=== PATIENT | female | born 1950 | race Caucasian/White ===

== ENCOUNTER → 2016-10-17 | Outpatient (REF) | payer OTHER, MEDICARE ==
[~2016-10-17] MED LIST: *PREMTA; /FENT50PA; /FENT50PA TD; /OXYC15TA; ALPR0.25 OR; AMBI10TA; AMBI10TA OR; AMIT50TA2; AMIT50TA2 OR; AMIT50TA4 PO; BACL10TA2; ESTR625TA OR; IMIT6INJ; LIDO5DIS; MAGN500T2; MORP30TA2 PO; OXYC10TA12 OR; OXYC10TA97 PO; PERC5TAB8; SOMA350T; SOMA350T OR; SUMATRIPTAN INJ; TOPA100T PO; VITA100T; XANA0.25
== END ==
LOC: M SFHCPLAZ 09:17
PROVIDERS: ATTEND Physician Assistant Medical
DX: R73.01 Impaired fasting glucose (principal); E55.9 Vitamin D deficiency, unspecified

== ENCOUNTER → 2016-10-24 | Outpatient (REF) | payer OTHER, MEDICARE | LOC: M SFHCADAM 13:17 | PROVIDERS: ATTEND Physician Assistant Medical | DX: E55.9 Vitamin D deficiency, unspecified (principal) ==

== ENCOUNTER → 2017-01-12 | Outpatient (CLI) | payer OTHER ==
[2017-01-12 10:17] LABS: BLOOD UREA NITROGEN 18 MG/DL (7-18); GLOMERULAR FILTRATION RATE > 60.0 (>45)
== END ==
LOC: M LAB 08:52
PROVIDERS: ATTEND Physician Assistant
DX: M96.1 Postlaminectomy syndrome, not elsewhere classified (principal)

== ENCOUNTER → 2017-01-17 | Outpatient (CLI) | payer OTHER ==
--- NOTE | 2017-01-17 13:16 | REP ---
MRI LUMBAR SPINE WITHOUT AND WITH CONTRAST: HISTORY: Back pain. CONTRAST: ProHance 13 mL. COMPARISON: 01/13/2010. Decreased signal intensity on T2-weighted images is present in the lumbar intervertebral discs. The discs are decreased in height. These findings are consistent with disc degeneration. A diffuse disc bulge is present at the L1-2 level. There is minimal compression of the thecal sac. There is hypertrophy of the posterior articulating facets. The L1 nerves exit the neural foramina without compression. A diffuse disc bulge is present at the L2-3 level. There is minimal compression of the thecal sac. There is hypertrophy of the posterior articulating facets. The L2 nerves exit the neural foramina without compression. The patient is status post L3-S1 anterior and L3 to sacroiliac posterior spinal fusion and L3-5 laminectomy. Bone graft material is present anteriorly and metal rods and pedicle screws posteriorly. There is no disc bulge or herniation at the L3-4 level. The L3 nerves exit the neural foramina without compression. A fluid collection is present at the laminectomy site. This measures 3.6 cm in transverse by 2.7 cm in AP by 5.2 cm in cephalocaudal dimensions. The fluid collection extends from the L3 level inferior to the L5-S1 level. The fluid collection is slightly increased in size compared to the previous study. A diffuse disc bulge is present at the L4-5 level. This abuts the thecal sac. There is hypertrophy of the posterior articulating facets. The L4 nerves exit the neural foramina without compression. A fluid collection is present at the laminectomy site. There is no disc bulge or herniation at the L5-S1 level. There is hypertrophy of the posterior articulating facets. There are 9 mm of grade 2 spondylolisthesis of L5 on S1. There is compression of the L5 nerves in the neural foramina. A fluid collection is present at the laminectomy site. The conus medullaris is normal in appearance terminating at the level of the T12-L1 intervertebral disc. There is no abnormal enhancement. Normal signal intensity is present in the lumbar vertebral bodies. IMPRESSION: 1. Diffuse disc bulges at the L1-2 and L2-3 levels with minimal thecal sac compression. 2. The patient is status post L3-S1 anterior and L3 to sacroiliac posterior spinal fusion and L3-5 laminectomy. 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 This is slightly increased in size compared to the previous study. Signed by Kenny Godwin MD 01/17/2017 01:23 P
== END ==
LOC: M RAD 09:17
PROVIDERS: ATTEND Physician Assistant
DX: M51.06 Intervertebral disc disorders with myelopathy, lumbar region (principal); Z98.1 Arthrodesis status; M96.842 Postprocedural seroma of a musculoskeletal structure following a musculoskeletal system procedure
CPT/HCPCS: 72158; A9576

== ENCOUNTER → 2017-05-15 | Outpatient (REF) | payer OTHER, MEDICARE ==
[2017-05-15 12:56] LABS: BASO % 0.7 % (0.0-1.0); HEMATOCRIT 35.5 % (36.0-47.0); HEMOGLOBIN 11.4 g/dl (12.0-16.0); IMMATURE GRANULOCYTE % 0.2 % (0-0); LYMPH # 1.4 10^3/uL (1.5-4.5); LYMPH % 31.7 % (24.0-44.0); MEAN CORPUSCULAR HEMOGLOBIN 27.9 pg (27.0-33.0); MEAN CORPUSCULAR HGB CONC 32.1 g/dl (32.0-36.5); MEAN CORPUSCULAR VOLUME 86.8 fl (80.0-96.0); MONO # 0.3 10^3/uL (0.0-0.8); MONO % 7.4 % (0.0-5.0); NEUTROPHILS # 2.6 10^3/uL (1.8-7.7); PLATELET COUNT, AUTOMATED 248 10^3/uL (150-450); RED BLOOD COUNT 4.09 10^6/uL (4.00-5.40); RED CELL DISTRIBUTION WIDTH 13.8 % (11.5-14.5); WHITE BLOOD COUNT 4.3 10^3/uL (4.0-10.0)
[2017-05-15 13:00] LABS: FOLATE 13.9 NG/ML; TOTAL 25(OH) VITAMIN D 31.6 NG/ML (30.0-100.0); VITAMIN B12 LEVEL 336 PG/ML
[2017-05-15 13:15] LABS: ESTIMATED AVERAGE GLUCOSE 126 MG/DL (60-110)
[2017-05-15 13:24] LABS: ALBUMIN/GLOBULIN RATIO 1.25 (1.00-1.93); ALKALINE PHOSPHATASE 93 U/L (45-117); ALT/SGPT 16 U/L (12-78); ANION GAP 6 MEQ/L (8-16); AST/SGOT 17 U/L (7-37); BILIRUBIN,TOTAL 0.3 MG/DL (0.2-1.0); BLOOD UREA NITROGEN 14 MG/DL (7-18); CALCIUM LEVEL 8.7 MG/DL (8.8-10.2); CARBON DIOXIDE LEVEL 32 MEQ/L (21-32); CHLORIDE LEVEL 103 MEQ/L (98-107); CHOLESTEROL LEVEL 194 MG/DL (<200); CHOLESTEROL RISK RATIO 3.344 (<5); CREATININE FOR GFR 0.61 MG/DL (0.55-1.02); FREE T4 0.94 NG/DL (0.76-1.46); GLOMERULAR FILTRATION RATE > 60.0 (>45); GLUCOSE, FASTING 108 MG/DL (80-110); HDL CHOLESTEROL 58 MG/DL (>40); LDL CHOLESTEROL 110.4 MG/DL (<100); MAGNESIUM LEVEL 1.9 MG/DL (1.8-2.4); NON-HDL-C 136 MG/DL; POTASSIUM SERUM 4.7 MEQ/L (3.5-5.1); SODIUM LEVEL 141 MEQ/L (136-145); TOTAL PROTEIN 7.2 GM/DL (6.4-8.2); TRIGLYCERIDES LEVEL 128 MG/DL (<150)
== END ==
LOC: M SFHCADAM 08:12
DX: E53.8 Deficiency of other specified B group vitamins (principal); F34.1 Dysthymic disorder; R73.01 Impaired fasting glucose; E55.9 Vitamin D deficiency, unspecified
CPT/HCPCS: 82746

== ENCOUNTER → 2017-05-15 | Outpatient (CLI) | payer OTHER, MEDICARE | LOC: M ADAMS 08:20 | DX: M19.032 Primary osteoarthritis, left wrist (principal); M85.48 Solitary bone cyst, other site; E53.8 Deficiency of other specified B group vitamins; F34.1 Dysthymic disorder; R73.01 Impaired fasting glucose; E55.9 Vitamin D deficiency, unspecified; Z79.899 Other long term (current) drug therapy | CPT/HCPCS: 73110; 82746 ==

== ENCOUNTER → 2018-01-28 | Outpatient (REF) | payer OTHER, MEDICARE ==
[2018-01-28 13:25] LABS: BASO % 0.5 % (0.0-1.0); HEMATOCRIT 37.6 % (36.0-47.0); IMMATURE GRANULOCYTE % 0.2 % (0-3.0); LYMPH # 1.1 10^3/uL (1.5-4.5); LYMPH % 24.2 % (24.0-44.0); MEAN CORPUSCULAR HEMOGLOBIN 28.9 pg (27.0-33.0); MEAN CORPUSCULAR HGB CONC 31.9 g/dl (32.0-36.5); MEAN CORPUSCULAR VOLUME 90.6 fl (80.0-96.0); MONO # 0.4 10^3/uL (0.0-0.8); MONO % 8.8 % (0.0-5.0); NEUTROPHILS # 2.9 10^3/uL (1.8-7.7); NEUTROPHILS % 66.3 % (36.0-66.0); PLATELET COUNT, AUTOMATED 196 10^3/uL (150-450); RED BLOOD COUNT 4.15 10^6/uL (4.00-5.40); RED CELL DISTRIBUTION WIDTH 13.3 % (11.5-14.5); WHITE BLOOD COUNT 4.4 10^3/uL (4.0-10.0)
[2018-01-28 14:52] LABS: ALBUMIN 3.7 GM/DL (3.2-5.2); ALBUMIN/GLOBULIN RATIO 1.09 (1.00-1.93); ALKALINE PHOSPHATASE 98 U/L (45-117); ALT/SGPT 17 U/L (12-78); ANION GAP 10 MEQ/L (8-16); AST/SGOT 21 U/L (7-37); BILIRUBIN,TOTAL 0.3 MG/DL (0.2-1.0); BLOOD UREA NITROGEN 15 MG/DL (7-18); CALCIUM LEVEL 9.1 MG/DL (8.8-10.2); CARBON DIOXIDE LEVEL 29 MEQ/L (21-32); CHLORIDE LEVEL 102 MEQ/L (98-107); CHOLESTEROL LEVEL 162 MG/DL (<200); CREATININE FOR GFR 0.62 MG/DL (0.55-1.30); FERRITIN 20 NG/ML (8-252); FOLATE 6.3 NG/ML; FREE T4 0.75 NG/DL (0.76-1.46); GLOMERULAR FILTRATION RATE > 60.0 (>45); GLUCOSE, FASTING 96 MG/DL (70-100); HDL CHOLESTEROL 54 MG/DL (>40); IRON (FE) 55 UG/DL (50-170); LDL CHOLESTEROL 87 MG/DL (<100); NON-HDL-C 108 MG/DL; PERCENT SATURATION 16.7 % (13.2-45.0); POTASSIUM SERUM 4.1 MEQ/L (3.5-5.1); SODIUM LEVEL 141 MEQ/L (136-145); TOTAL IRON BINDING CAPACITY 330 UG/DL (250-450); TOTAL PROTEIN 7.1 GM/DL (6.4-8.2); TRIGLYCERIDES LEVEL 107 MG/DL (<150)
[2018-01-28 15:48] LABS: ESTIMATED AVERAGE GLUCOSE 111 MG/DL (60-110); HEMOGLOBIN A1c 5.5 %
== END ==
LOC: M SFHCADAM 08:06
DX: E53.8 Deficiency of other specified B group vitamins (principal); G47.00 Insomnia, unspecified; R73.01 Impaired fasting glucose; E55.9 Vitamin D deficiency, unspecified; E78.00 Pure hypercholesterolemia, unspecified; D50.9 Iron deficiency anemia, unspecified
CPT/HCPCS: 82746

== ENCOUNTER → 2018-02-14 | Outpatient (CLI) | payer OTHER | LOC: M RAD 13:41 | DX: R92.8 Other abnormal and inconclusive findings on diagnostic imaging of breast (principal); Z78.0 Asymptomatic menopausal state; M81.0 Age-related osteoporosis without current pathological fracture | CPT/HCPCS: 77065 ==

== ENCOUNTER → 2018-02-14 | Outpatient (CLI) | payer OTHER, MEDICARE | LOC: M WHC 13:00 | DX: Z78.0 Asymptomatic menopausal state (principal); M81.0 Age-related osteoporosis without current pathological fracture ==

== ENCOUNTER → 2018-02-18 | Outpatient (CLI) | payer OTHER | LOC: M CARPUL 10:18 | DX: I08.0 Rheumatic disorders of both mitral and aortic valves (principal) | CPT/HCPCS: 93306 ==

== ENCOUNTER 2018-06-18 08:21 | Day surgery (SDC) | payer MEDICARE ==
[~2018-06-18] VITALS: Ht 154.9 cm; Wt 54.8 kg
[~2018-06-18 08:21] MED LIST changes: +AMBI5TAB PO; +AMIT100TA PO; +CYCL10TA PO; +IMIT6KIT SC; +MORP30TASA PO; +NS 1,000 ML IV ONE; +SERT-155 PO; +VITA100067 PO; +VITA500T3 PO
[2018-06-18] MEDS ORDERED: PROPOFOL 500 MG/50 ML VIAL As Ordered ONE (09:09)
[2018-06-18] MEDS ORDERED: LIDOCAINE 2% INJ 100 MG/5 ML SDV (FOR ANES.) As Ordered ONE (09:43)
--- NOTE | 2018-06-18 11:00 | ROOR ---
Patient Name: Diane Azevedo Procedure Date: 06/18/2018 10:22 AM Date of : 1950 Age: 67 Room: [facility] Gender: Female Note Status: Finalized Procedure: Upper GI endoscopy Indications: Weight loss Providers: Rogelio Shi MD Referring MD: JODI Lopez Requesting Provider: Medicines: Monitored Anesthesia Care Complications: No immediate complications. Procedure: Pre-Anesthesia Assessment: - Prior to the procedure, a History and Physical was performed, and patient medications and allergies were reviewed. The patient is competent. The risks and benefits of the procedure and the sedation options and risks were discussed with the patient. All questions were answered and informed consent was obtained. Patient identification and proposed procedure were verified by the physician, the nurse and the anesthesiologist in the procedure room. Mental Status Examination: alert and oriented. Airway Examination: normal oropharyngeal airway and neck mobility. Respiratory Examination: clear to auscultation. CV Examination: normal. Prophylactic Antibiotics: The patient does not require prophylactic antibiotics. Prior Anticoagulants: The patient has taken no previous anticoagulant or antiplatelet agents. ASA Grade Assessment: III - A patient with severe systemic disease. After reviewing the risks and benefits, the patient was deemed in satisfactory condition to undergo the procedure. The anesthesia plan was to use monitored anesthesia care (MAC). Immediately prior to administration of medications, the patient was re-assessed for adequacy to receive sedatives. The heart rate, respiratory rate, oxygen saturations, blood pressure, adequacy of pulmonary ventilation, and response to care were monitored throughout the procedure. The physical status of the patient was re-assessed after the procedure. The Endoscope was introduced through the mouth, and advanced to the second part of duodenum. The upper GI endoscopy was accomplished without difficulty. The patient tolerated the procedure well. Findings: LA Grade A (one or more mucosal breaks less than 5 mm, not extending between tops of 2 mucosal folds) esophagitis with no bleeding was found in the distal esophagus. Biopsies were taken with a cold forceps for histology. Verification of patient identification for the specimen was done by the physician and nurse using the patient's name, date and medical record number. Estimated blood loss was minimal. Diffuse moderate inflammation characterized by erosions, erythema and granularity was found in the gastric antrum. Biopsies were taken with a cold forceps for Helicobacter pylori testing. The duodenal bulb and second portion of the duodenum were normal. Impression: - LA Grade A reflux esophagitis. Biopsied. - Gastritis. Biopsied. - Normal duodenal bulb and second portion of the duodenum. Recommendation: - Patient has a contact number available for emergencies. The signs and symptoms of potential delayed complications were discussed with the patient. Return to normal activities tomorrow. Written discharge instructions were provided to the patient. - Resume previous diet. - Continue present medications. - Await pathology results. - Follow an antireflux regimen. - Based on the biopsy results you will receive a phone call from GI clinic in 2-3 weeks to review the pathology results AND/OR your results will be faxed to your Primary care physician. - Return to primary care physician. Rogelio Shi MD Rogelio Shi MD 06/18/2018 10:59:31 AM This report has been signed electronically. Number of Addenda: 0 Note Initiated On: 06/18/2018 10:22 AM Estimated Blood Loss: Estimated blood loss was minimal.
--- NOTE | 2018-06-18 11:03 | ROOR ---
Patient Name: Diane Azevedo Procedure Date: 06/18/2018 10:23 AM Date of : 1950 Age: 67 Room: [facility] Gender: Female Note Status: Finalized Procedure: Colonoscopy Indications: Weight loss Providers: Rogelio Shi MD Referring MD: JODI Lopez Requesting Provider: Medicines: Monitored Anesthesia Care Complications: No immediate complications. Procedure: Pre-Anesthesia Assessment: - Prior to the procedure, a History and Physical was performed, and patient medications and allergies were reviewed. The patient is competent. The risks and benefits of the procedure and the sedation options and risks were discussed with the patient. All questions were answered and informed consent was obtained. Patient identification and proposed procedure were verified by the physician, the nurse and the anesthesiologist in the procedure room. Mental Status Examination: alert and oriented. Airway Examination: normal oropharyngeal airway and neck mobility. Respiratory Examination: clear to auscultation. CV Examination: normal. Prophylactic Antibiotics: The patient does not require prophylactic antibiotics. Prior Anticoagulants: The patient has taken no previous anticoagulant or antiplatelet agents. ASA Grade Assessment: III - A patient with severe systemic disease. After reviewing the risks and benefits, the patient was deemed in satisfactory condition to undergo the procedure. The anesthesia plan was to use monitored anesthesia care (MAC). Immediately prior to administration of medications, the patient was re-assessed for adequacy to receive sedatives. The heart rate, respiratory rate, oxygen saturations, blood pressure, adequacy of pulmonary ventilation, and response to care were monitored throughout the procedure. The physical status of the patient was re-assessed after the procedure. The Colonoscope was introduced through the anus with the intention of advancing to the cecum. The scope was advanced to the rectum before the procedure was aborted. Medications were given. The colonoscopy was performed without difficulty. The patient tolerated the procedure well. The quality of the bowel preparation was poor and unsatisfactory. No anatomical landmarks were photographed. Findings: The perianal and digital rectal examinations were normal. Copious quantities of stool was found in the rectum and in the recto-sigmoid colon, precluding visualization. Lavage of the area was performed using a large amount of sterile water, resulting in incomplete clearance with continued poor visualization. Impression: - Preparation of the colon was poor. - Preparation of the colon was unsatisfactory. - Stool in the rectum and in the recto-sigmoid colon. - No specimens collected. Recommendation: - Patient has a contact number available for emergencies. The signs and symptoms of potential delayed complications were discussed with the patient. Return to normal activities tomorrow. Written discharge instructions were provided to the patient. - Resume previous diet. - Continue present medications. - Repeat colonoscopy within 3 months because the bowel preparation was poor. - Please call GI clinic @ # [phone] to make follow up appointment in 4- 6 weeks - Return to primary care physician. Rogelio Shi MD Rogelio Shi MD 06/18/2018 11:03:09 AM This report has been signed electronically. Number of Addenda: 0 Note Initiated On: 06/18/2018 10:23 AM Estimated Blood Loss: Estimated blood loss: none.
[2018-06-18 11:15] VITALS: BP 150/69
== END 2018-06-18 11:32 | disposition home or self-care (01) ==
LOC: M OPP 08:21
PROVIDERS: ATTEND Internal Medicine Gastroenterology
DX: R63.4 Abnormal weight loss (principal); R19.5 Other fecal abnormalities; K29.70 Gastritis, unspecified, without bleeding; Z79.891 Long term (current) use of opiate analgesic; Z79.899 Other long term (current) drug therapy; Z88.5 Allergy status to narcotic agent; Z88.1 Allergy status to other antibiotic agents

== ENCOUNTER → 2018-06-19 | Outpatient (CLI) | payer MEDICARE ==
[~2018-06-19] MED LIST changes: -NS 1,000 ML IV ONE
[2018-06-19 09:57] LABS: BLOOD UREA NITROGEN 16 MG/DL (7-18); CREATININE FOR GFR 0.74 MG/DL (0.55-1.30); GLOMERULAR FILTRATION RATE > 60.0 (>45)
== END ==
LOC: M LAB 09:01
PROVIDERS: ATTEND Physician Assistant Medical
DX: R63.4 Abnormal weight loss (principal)

== ENCOUNTER → 2018-06-25 | Outpatient (CLI) | payer MEDICARE ==
[~2018-06-25] MED LIST changes: +GLUCAGON FOR INJ 1 MG VIAL (J1610) As Ordered ONE; +ISOVUE-370 76% 100ML VIAL (Q9967) As Ordered ONE; +VoLumen 0.1% SUSPENSION 450ML BOTTLE As Ordered ONE
--- NOTE | 2018-06-25 14:37 | REP ---
CT ENTEROGRAPHY ABDOMEN AND PELVIS WITH IV CONTRAST AND ORAL CONTRAST: TECHNIQUE: Axial contrast enhanced images from the lung bases to the pubic symphysis using 100 mL Isovue 370 intravenous contrast material with multiplanar reformations. Oral contrast was administered, VoLumen a per hospital protocol. Visualized lung bases demonstrate minor scarring. The liver demonstrates no mass. Patient has had a prior cholecystectomy. There is mild prominence of the common bile duct but no evidence of significant biliary dilatation or choledocholithiasis. Spleen, adrenals, pancreas and kidneys are unremarkable. There is mild atherosclerotic calcification of the abdominal aorta without aneurysm. There is no adenopathy. There is no free or free fluid. I see no bowel wall thickening. There is mild diffuse distension of stomach and small bowel with ingested oral contrast. There is moderate diffuse fecal retention. Patient has had a hysterectomy. No pelvic mass is seen. The urinary bladder is mildly distended and appears unremarkable. There is evidence of prior lower lumbar spine fusion posteriorly with laminectomy. There is sclerosis at the sacroiliac joints. IMPRESSION: Moderate fecal retention. No evidence of bowel wall abnormality. No bowel inflammation identified. Patient is status-post cholecystectomy and hysterectomy. Patient is status-post lumbar spine fusion and laminectomy. Electronically Signed by Daryl Turner MD 06/25/2018 05:30 P
== END ==
LOC: M RAD 09:23
PROVIDERS: ATTEND Physician Assistant Medical
DX: K56.41 Fecal impaction (principal); Z90.710 Acquired absence of both cervix and uterus; Z90.49 Acquired absence of other specified parts of digestive tract; M53.3 Sacrococcygeal disorders, not elsewhere classified; R63.4 Abnormal weight loss; M43.26 Fusion of spine, lumbar region
CPT/HCPCS: 74177; J1610; Q9967

== ENCOUNTER 2018-08-09 08:37 | Day surgery (SDC) | payer MEDICARE ==
[~2018-08-09] VITALS: Ht 152.4 cm; Wt 51.3 kg
[~2018-08-09 08:37] MED LIST changes: -/FENT50PA; -/FENT50PA TD; -/OXYC15TA; +FENT1DIS15; +FENT1DIS15 TD; -GLUCAGON FOR INJ 1 MG VIAL (J1610) As Ordered ONE; -ISOVUE-370 76% 100ML VIAL (Q9967) As Ordered ONE; +LIDOCAINE 2% INJ 100 MG/5 ML SDV (FOR ANES.) As Ordered ONE; +MIRA3350 PO; +NS 1,000 ML IV ONE; +OMEP40CA2 PO; +OXYC1TAB32; +PROPOFOL 200 MG/20 ML VIAL As Ordered ONE; -VoLumen 0.1% SUSPENSION 450ML BOTTLE As Ordered ONE
[2018-08-09] MEDS ORDERED: fentaNYL 100 MCG/2 ML INJECTION (J3010) As Ordered ONE (10:17)
[2018-08-09] MEDS ORDERED: PROPOFOL 200 MG/20 ML VIAL As Ordered ONE (10:33)
--- NOTE | 2018-08-09 10:56 | ROOR ---
Patient Name: Diane Azevedo Procedure Date: 08/09/2018 10:12 AM Date of : 1950 Age: 68 Room: [facility] Gender: Female Note Status: Finalized Procedure: Colonoscopy Indications: Constipation, Weight loss Providers: Rogelio Shi MD Referring MD: JODI Lopez Requesting Provider: Medicines: Monitored Anesthesia Care Complications: No immediate complications. Procedure: Pre-Anesthesia Assessment: - Prior to the procedure, a History and Physical was performed, and patient medications and allergies were reviewed. The patient is competent. The risks and benefits of the procedure and the sedation options and risks were discussed with the patient. All questions were answered and informed consent was obtained. Patient identification and proposed procedure were verified by the physician, the nurse and the anesthesiologist in the procedure room. Mental Status Examination: alert and oriented. Airway Examination: normal oropharyngeal airway and neck mobility. CV Examination: normal. Prophylactic Antibiotics: The patient does not require prophylactic antibiotics. Prior Anticoagulants: The patient has taken no previous anticoagulant or antiplatelet agents. ASA Grade Assessment: III - A patient with severe systemic disease. After reviewing the risks and benefits, the patient was deemed in satisfactory condition to undergo the procedure. The anesthesia plan was to use monitored anesthesia care (MAC). Immediately prior to administration of medications, the patient was re-assessed for adequacy to receive sedatives. The heart rate, respiratory rate, oxygen saturations, blood pressure, adequacy of pulmonary ventilation, and response to care were monitored throughout the procedure. The physical status of the patient was re-assessed after the procedure. The Colonoscope was introduced through the anus and advanced to the terminal ileum, with identification of the appendiceal orifice and IC valve. The colonoscopy was performed without difficulty. The patient tolerated the procedure well. The quality of the bowel preparation was good. The terminal ileum, ileocecal valve, appendiceal orifice, and rectum were photographed. Scope insertion time was 4 minutes. Scope withdrawal time was 10 minutes. The total duration of the procedure was 14 minutes. Findings: The perianal and digital rectal examinations were normal. The terminal ileum appeared normal. A 6 mm polyp was found in the transverse colon. The polyp was sessile. The polyp was removed with a cold snare. Resection and retrieval were complete. Verification of patient identification for the specimen was done by the physician and nurse using the patient's name, date and medical record number. Estimated blood loss was minimal. Non-bleeding external and internal hemorrhoids were found during retroflexion. The hemorrhoids were small. Impression: - The examined portion of the ileum was normal. - One 6 mm polyp in the transverse colon, removed with a cold snare. Resected and retrieved. - Non-bleeding external and internal hemorrhoids. Recommendation: - Patient has a contact number available for emergencies. The signs and symptoms of potential delayed complications were discussed with the patient. Return to normal activities tomorrow. Written discharge instructions were provided to the patient. - High fiber diet. - Continue present medications. - Await pathology results. - Repeat colonoscopy in 5-10 years for surveillance based on pathology results. - Further work up for weight loss , including Capsule enteroscopy, and fecal elastase and fecal fat.( if ongoing weight loss). - Return to GI clinic in [facility] (address [address], [address], [place], [facility] [place]) in 4 -- 6 weeks. Please call GI clinic @ [phone] for apppointment date and time. - Return to primary care physician. Rgoelio Shi MD Rogelio Shi MD 08/09/2018 10:56:33 AM Electronically signed by Rogelio Shi MD Number of Addenda: 0 Note Initiated On: 08/09/2018 10:12 AM Estimated Blood Loss: Estimated blood loss: none.
[2018-08-09 11:15] VITALS: BP 133/61
== END 2018-08-09 11:21 | disposition home or self-care (01) ==
LOC: M OPP 08:37
PROVIDERS: ATTEND Internal Medicine Gastroenterology
DX: K64.8 Other hemorrhoids (principal); D12.3 Benign neoplasm of transverse colon; K59.00 Constipation, unspecified; R63.4 Abnormal weight loss; Z88.1 Allergy status to other antibiotic agents; Z88.5 Allergy status to narcotic agent; Z91.040 Latex allergy status; Z79.899 Other long term (current) drug therapy
CPT/HCPCS: 45385; 88305; J3010

== ENCOUNTER → 2018-09-12 | Outpatient (REF) | payer MEDICARE ==
[~2018-09-12] MED LIST changes: -LIDOCAINE 2% INJ 100 MG/5 ML SDV (FOR ANES.) As Ordered ONE; -NS 1,000 ML IV ONE; -PROPOFOL 200 MG/20 ML VIAL As Ordered ONE
[2018-09-12 19:02] LABS: BASO % 0.4 % (0.0-1.0); HEMATOCRIT 38.3 % (36.0-47.0); HEMOGLOBIN 12.3 g/dl (12.0-15.5); LYMPH # 1.3 10^3/uL (1.5-4.5); MEAN CORPUSCULAR HGB CONC 32.1 g/dl (32.0-36.5); MEAN CORPUSCULAR VOLUME 87.2 fl (80.0-96.0); MONO # 0.3 10^3/uL (0.0-0.8); MONO % 6.7 % (0.0-5.0); NEUTROPHILS # 3.2 10^3/uL (1.8-7.7); NEUTROPHILS % 65.5 % (36.0-66.0); PLATELET COUNT, AUTOMATED 231 10^3/uL (150-450); RED BLOOD COUNT 4.39 10^6/uL (4.00-5.40); WHITE BLOOD COUNT 4.8 10^3/uL (4.0-10.0)
[2018-09-12 19:10] LABS: ALBUMIN 4.1 GM/DL (3.2-5.2); ALT/SGPT 21 U/L (12-78); BILIRUBIN,TOTAL 0.3 MG/DL (0.2-1.0); BLOOD UREA NITROGEN 21 MG/DL (7-18); CALCIUM LEVEL 9.5 MG/DL (8.8-10.2); CARBON DIOXIDE LEVEL 30 MEQ/L (21-32); CHLORIDE LEVEL 106 MEQ/L (98-107); CREATININE FOR GFR 0.76 MG/DL (0.55-1.30); GLOMERULAR FILTRATION RATE > 60.0 (>45); GLUCOSE, FASTING 97 MG/DL (70-100); POTASSIUM SERUM 4.2 MEQ/L (3.5-5.1); SODIUM LEVEL 141 MEQ/L (136-145); TOTAL PROTEIN 7.8 GM/DL (6.4-8.2)
[2018-09-12 19:12] LABS: TOTAL 25(OH) VITAMIN D 24.1 NG/ML (30.0-100.0); VITAMIN B12 LEVEL 1130 PG/ML (247-911)
[2018-09-12 19:36] LABS: HEMOGLOBIN A1c 6.7 %
== END ==
LOC: M SFHCADAM 15:25
PROVIDERS: ATTEND Physician Assistant Medical
DX: M51.36 Other intervertebral disc degeneration, lumbar region (principal); F34.1 Dysthymic disorder; R73.01 Impaired fasting glucose; E55.9 Vitamin D deficiency, unspecified; I50.42 Chronic combined systolic (congestive) and diastolic (congestive) heart failure; D51.3 Other dietary vitamin B12 deficiency anemia

== ENCOUNTER 2018-09-25 15:32 | Emergency (ER) | payer MEDICARE ==
[~2018-09-25] VITALS: Ht 165.1 cm; Wt 54.1 kg
[2018-09-25] MEDS ORDERED: diphenhydrAMINE INJ 50MG/ML VIAL (J1200) IV STA (16:35)
[2018-09-25] MEDS ORDERED: KETOROLAC 30 MG/ML VIAL (J1885) IV ONE (16:45)
[2018-09-25] MEDS ORDERED: NS 500 ML IV ONE (16:45)
[2018-09-25] MEDS ORDERED: METOCLOPRAMIDE INJ 10MG/2ML VIAL (J2765) IV ONE (16:45)
--- NOTE | 2018-09-25 17:08 | REP ---
CT Head without contrast HISTORY: Fall COMPARISON: 12/13/2009 Areas of decreased attenuation are present in the periventricular white matter. This represents small-vessel ischemic disease. There is no intraparenchymal hemorrhage, acute infarct, mass or midline shift. The ventricular system and cortical sulci are dilated consistent with minimal volume loss. There is no extra cerebral collection. There is no fracture. The visualized sinuses are clear. IMPRESSION: 1. Small vessel ischemic disease. 2. Minimal volume loss. Electronically Signed by Kenny Godwin MD 09/25/2018 05:00 P
--- NOTE | 2018-09-25 17:31 | REP ---
CT LUMBAR SPINE WITHOUT CONTRAST: HISTORY: Fall. A diffuse disc bulge is present at the L1-2 level. There is minimal compression of the thecal sac. The L1 nerves exit the neural foramina without compression. A diffuse disc bulge is present at the L2-3 level. There is minimal compression of the thecal sac. There is hypertrophy of the posterior articulating facets. The L2 nerves exit the neural foramina without compression. The patient is status post L3 to S1 anterior and L3 to sacroiliac posterior final fusion and L3 to 5 laminectomy. Metal hardware and bone graft material are present. There is no definite disc bulge or herniation at the L3-4 level. Posterior osteophytes are present. There is hypertrophy of the posterior articulating facets. The L3 nerves exit the neural foramina without compression. Posterior osteophytes are present at the L4-5 level. There is hypertrophy of the posterior articulating facets. The L4 nerves exit the neural foramina without compression. There is no definite disc bulge or herniation at the L5-S1 level. There are 10 mm of grade 2 spondylolisthesis of L5 on S1. There is hypertrophy of the posterior articulating facets. There is compression of the L5 nerves in the neural foramina. The L3-4 through L5-S1 intervertebral discs are decreased in height consistent with disc degeneration. There is no fracture. IMPRESSION: 1. Diffuse disc bulges at the L1-2 and L2-3 levels with minimal thecal sac compression. 2. The patient is status post L3 to S1 anterior and L3 to sacroiliac posterior spinal fusion and L3 to 5 laminectomy. There is no acute fracture. Electronically Signed by Kenny Godwin MD 09/26/2018 08:29 A
[2018-09-25] MEDS ORDERED: PERC5TAB12 PO (17:59)
[2018-09-25] MEDS ORDERED: PERCOCET 5MG/325MG TAB PO ONE (18:00)
[2018-09-25 19:14] VITALS: BP 142/84
== END 2018-09-25 19:23 | disposition home or self-care (01) ==
LOC: M ED 15:32
DX: S30.0XXA Contusion of lower back and pelvis, initial encounter (principal); S00.93XA Contusion of unspecified part of head, initial encounter; W19.XXXA Unspecified fall, initial encounter; Y92.099 Unspecified place in other non-institutional residence as the place of occurrence of the external cause; Y93.9 Activity, unspecified; Y99.9 Unspecified external cause status; M51.26 Other intervertebral disc displacement, lumbar region; M43.26 Fusion of spine, lumbar region; Z79.899 Other long term (current) drug therapy; Z88.1 Allergy status to other antibiotic agents; Z88.5 Allergy status to narcotic agent; Z91.040 Latex allergy status
CPT/HCPCS: 70450; 72131; 96361; 96374; 96375; 99284; J1200; J1885; J2765

== ENCOUNTER → 2018-09-30 | Outpatient (CLI) | payer MEDICARE ==
[~2018-09-30] MED LIST changes: +PERC5TAB12 PO
--- NOTE | 2018-10-12 01:49 | ECWPNPC ---
PATIENT NAME: ERWIN ROJO : 1950 GENDER: FEMALE VISIT DATE: 09/30/2018 DISCHARGE DATE: 09/30/18 1457 VISIT LOCKED DATE TIME: PHYSICIAN: DELMA QUINONEZ MD RESOURCE: DELMA QUINONEZ MD REASON FOR APPOINTMENT 1. DDD HISTORY OF PRESENT ILLNESS PAIN SCREENING: PATIENT HAS A COMPLAINT OF ACUTE OR CHRONIC PAIN :YES 68 YEAR OLD FEMALE PATIENT WITH A HISTORY OF CHRONIC LOW BACK PAIN. THE PATIENT DESCRIBES THE PAIN ACHING, STABBING, SHOOTING, AND CONTINUOUS WITH A PAIN SCORE OF 7-10/10 DEPENDING ON PHYSICAL ACTIVITY. THE PATIENT SAYS THE PAIN STARTS IN HER LOW BACK AND RADIATES DOWN HER RIGHT LEG. THE PATIENT SAYS THAT SHE HAS HAD THIS PAIN FOR MANY YEARS. THE PATIENT REPORTS HAVING 2 BACK SURGERIES IN 2009 AND ANOTHER IN 2010, BUT SAYS THEY DID NOT HELP HER. THE PATIENT HAS TINGLING DOWN HER RIGHT LEG THAT CAUSES HER TO HAVE DIFFICULTIES WALKING SO SHE NEEDS TO USE A CANE. THE PATIENT SAYS THAT SHE HAS TRIED MULTIPLE MEDICATIONS SUCH TIZANIDINE, CYCLOBENZAPRINE, BACLOFEN, AND IBUPROFEN BUT NONE OF THEM HAVE HELPED. THE PATIENT REPORTS EXPERIENCING ADVERSE SIDE EFFECTS WHILE USING BACLOFEN. PATIENT DENIES UNEXPLAINABLE WEIGHT LOSS, FEVER, CHILLS, NEW CHANGES ON HER URINARY OR BOWEL CONTROL. FALL RISK SCREENING: SCREENING :TWO OR MORE FALLS WITHOUT INJURY IN THE PAST YEAR NO BROKEN BONES FROM FALLS PER PT, BUT SHE SAYS SHE GETS A LOT OF BRUISES CURRENT MEDICATIONS TAKING MAY HAVE - - DIRECTED - WEARS HER SEATBELT BELOW HER SHOULDER TO PREVENT EXACERBATION OF UPPER BACK PAIN WHILE DRIVING TAKING VITAMIN D 2000 UNIT TABLET 1 TABLET ORALLY ONCE A DAY TAKING VITAMIN B12 500 MG TABLET 1 TABLET ORALLY ONCE A DAY TAKING IMITREX STATDOSE SYSTEM 6 MG/0.5ML SOLUTION AUTO-INJECTOR 0.5 ML NEEDED SUBCUTANEOUS TWICE A DAY TAKING ZOLOFT 100 MG TABLET 1 TABLET ORALLY ONCE A DAY TAKING OMEPRAZOLE 40 MG CAPSULE DELAYED RELEASE 1 CAPSULE ORALLY ONCE A DAY TAKING AMBIEN 5 MG TABLET 1 TABLET AT BEDTIME ORALLY ONCE A DAY MDD = 1 TAKING AMITRIPTYLINE HCL 100 MG TABLET 1 TABLET AT BEDTIME ORALLY ONCE A DAY NOT-TAKING CYCLOBENZAPRINE HCL 10 MG TABLET 1 TABLET NEEDED ORALLY THREE TIMES A DAY MEDICATION LIST REVIEWED AND RECONCILED WITH THE PATIENT PAST MEDICAL HISTORY RENAL [id number] ARTHRITIS, KNEES DEGENERATIVE DISC DISEASE - CHRONIC PAIN - FOLLOWED BY [facility] FOR MEDICATION MANAGEMENT ANEMIA - B12 DEFICIENCY ECHOCARDIOGRAM 03/11/14 - DR. WHITESIDE - MODERATELY ENLARGED LV, EF 30-40%. MODERATELY SEVERE AR, MODERATE MR, MILD TR, NORMAL PAP- PT HAS REFUSED REPEAT 02/28 ECHO NL LV SIZE WITH SEGMENTAL WALL MOTION ABN, SUPERIMPOSED ON GLOBAL WALL MOTION ABN LF 40%, AT LEAST MILD DIASTOLIC DYSFXN, AV SCLEROSIS WITHOUT STENOSIS, MILD TO MOD INSUFF, DEG CHANGES TO MV WITH [place] NUCLEAR STRESS TEST - NEG - 2013 DEPRESSION/ANXIETY/HALLUCINATIONS/INSOMNIA IFG VIT D DEF MIGRAINES 06/26 NL RENAL US 07/30 COLONOSCOPY CHANDRALA TUBULAR ADENOMA ALLERGIES BACLOFEN: CONFUSION - SIDE EFFECTS VICODIN: VOMITING - SIDE EFFECTS SURGICAL HISTORY HYSTERECTOMY 1999 GALL BLADDER 1987 BACK SURGERY X3 TUMMY TUCK 1999 KIDNEY STONES X2 PIN IN LEFT ANKLE AGE 16 TONSILLECTOMY 1969 FAMILY HISTORY FATHER: 74 YRS, [place] MOTHER: 71 YRS, LUNG CANCER SIBLINGS: ALIVE, BROTHER - HEART DISEASE, PACEMAKER, SMOKER SON(S): ALIVE 44 YRS, NO KNOWN MEDICAL PROBLEMS DAUGHTER(S): ALIVE 47 YRS, SCOLIOSIS, BLOOD CANCER 1 BROTHER(S) . 1 SON(S) , 1 DAUGHTER(S) - HEALTHY. PATIENT DENIES FAMILY HISTORY OF ANY UROLOGICALLY RELATED DISEASES. SOCIAL HISTORY GENERAL: TOBACCO USE ARE YOU A:NONSMOKER OTHERS AT HOME: BOYFRIEND. EDUCATION LEVEL OF EDUCATION:NOT FINISHED HIGH SCHOOL 11TH GRADE DIET: REGULAR. LANGUAGE LANGUAGES SPOKEN:KOREAN DOMESTIC VIOLENCE DO YOU FEEL SAFE IN YOUR ENVIRONMENT?YES NEW PATIENT PAIN DIARY PATIENT DESCRIBES PAIN :ACHING, STABBING, SHOOTING STATES SHE ALSO HAS WEAKNESS/NUMBESS, HER RIGHT LEG AND FOOT FEEL PRICKLY FROM 0-10, WHAT LEVEL IS YOUR PAIN TODAY?8 PRECIPITATING FACTORS STANDING AND WALKING ALLEVIATING FACTORS PAIN MEDS BMI CARE GOAL FOLLOW-UP ABOVE NORMAL BMI FOLLOW-UPDIETARY MANAGEMENT EDUCATION, GUIDANCE, AND COUNSELING RECREATIONAL DRUG USE DRUG USE?NO EXERCISE: NO REGULAR EXERCISE. 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 DIRECTOR NEEDED?NO LUNG CANCER SCREENING SMOKING STATUS:NON SMOKER PAIN CLINIC PFS, CLERGY, PUBLIC HEALTH REFERRALS HAS THE PATIENT BEEN EDUCATED REGARDING HIS/HER PLAN OF CARE?YES HAS THE PATIENT BEEN EDUCATED REGARDING PAIN, THE RISK FOR PAIN, THE IMPORTANCE OF EFFECTIVE PAIN MANAGEMENT, AND THE PAIN ASSESSMENT PROCESS?YES LATEX QUESTIONNAIRE LATEX ALLERGY : HAVE YOU EVER DEVELOPED ANY TYPE OF REACTION AFTER HANDLING LATEX PRODUCTS SUCH RUBBER GLOVES, CONDOMS, DIAPHRAGMS, BALLOONS, SOCKS, OR UNDERWEAR?NO LATEX ALLERGY : HAVE YOU EVER DEVELOPED ANY TYPE OF REACTION DURING OR AFTER DENTAL APPOINTMENT, VAGINAL/RECTAL EXAMINATION, SURGICAL PROCEDURE, OR ANY OTHER EXPOSURE?NO LATEX RISK : HAVE YOU EVER HAD ANY DIFFICULTY BREATHING OR HIVES AFTER EATING OR HANDLING ANY FRUITS, OR VEGETABLES; SUCH KIWI, BANANAS, STONE FRUITS, OR CHESTNUTSNO LATEX RISK : DO YOU HAVE A PREVIOUS PERSONAL HISTORY OF MORE THAN NINE SURGERIES, SPINA BIFIDA, OR REPEATED CATHERTIZATIONS? NO LATEX RISK : ARE YOU FREQUENTLY EXPOSED TO LATEX PRODUCTS IN YOUR OCCUPATION?NO DATE ASKED : 09/12/2018 CAFFEINE CAFFEINE USE?NO ADVANCE DIRECTIVE ADVANCE DIRECTIVE DISCUSSED WITH PATIENT:YES PT HAS NO ADVANCED DIRECTIVES, DECLINED INFORMATION OR ASSISTANCE AT THIS TIME ROMAN CATHOLIC NO RESTORATIONISM BELIEFS THAT WOULD IMPACT HEALTH CARE. MARITAL STATUS: .. ALCOHOL SCREENING DID YOU HAVE A DRINK CONTAINING ALCOHOL IN THE PAST YEAR?YES HOW OFTEN DID YOU HAVE A DRINK CONTAINING ALCOHOL IN THE PAST YEAR?FOUR OR MORE TIMES A WEEK (4 POINTS) HOW MANY DRINKS DID YOU HAVE ON A TYPICAL DAY WHEN YOU WERE DRINKING IN THE PAST YEAR?1 OR 2 (0 POINTS) HOW OFTEN DID YOU HAVE SIX OR MORE DRINKS ON ONE OCCASION IN THE PAST YEAR?NEVER (0 POINTS) POINTS4 INTERPRETATIONPOSITIVE OCCUPATION: DISABLED - NO PREVIOUS EMPLOYMENT PRIOR TO DISABILITY. SEXUAL HX HAD SEX IN THE LAST 12 MONTHS (VAGINAL, ORAL, OR ANAL)?: NO, HAVE YOU EVER HAD AN STD?: NO, LMP:: HYSTER. REVIEWED WITH PT 09/30/18 1325 LAS. HOSPITALIZATION/MAJOR DIAGNOSTIC PROCEDURE SURGERY RELATED IMHU, DEPRESSION, MTP REVIEW OF SYSTEMS REVIEWED BY: PROVIDER: DELMA QUINONEZ MD . CONSTITUTIONAL: ANY CHANGE IN YOUR MEDICAL CONDITION? NO . CHILLS NO . FEVER NO . INFECTION: DO YOU HAVE NEW INFECTIONS? NO . DO YOU HAVE HISTORY OF MRSA? NO . MUSCULOSKELETAL: ANY NEW PATTERNS OF PAIN OR NUMBNESS? NO . SYTEMIC LUPUS NO . GASTROENTEROLOGY: ANY NEW CHANGE IN BOWEL CONTROL? NO . BARRETTS ESOPHAGUS NO . CIRRHOSIS NO . HEPATITIS NO . LIVER FAILURE NO . ACID REFLUX NO . UNEXPLAINED WEIGHT LOSS NO . GENITOURINARY: ANY NEW CHANGE IN BLADDER CONTROL? NO . IS THERE A CHANCE YOU COULD BE ? NO . HEMATOLOGY/LYMPH: DO YOU TAKE ANY BLOOD THINNERS? (FOR EXAMPLE- COUMADIN, PLAVIX, AGGRENOX, PLATEL, PRADAXA, OR XARELTO) NO . WHEN WAS YOUR LAST DOSE? DATE: TIME: . LOW PLATELET COUNT NO . SICKLE CELL DISEASE NO . VON WILLIEBRANDS NO . FACTOR V LEIDEN NO . THALLASEMIA NO . ANEMIA NO . EASY BRUISING NO . NEUROLOGY: HAVE YOU FALLEN IN THE PAST 12 MONTHS? YES PT REPORTS SHE FALLS FREQUENTLY STATES HER RIGHT FOOT/LEG ARE NUMB/PRICKLY FEELING, SOMETIMES BECAUSE OF IT SHE FALLS. ALSO STATES HER LEGS CAN'T ALWAYS SUPPORT HER. SHE USES A CANE OR A WALKER. . ANY NEW EXTREMITY NUMBNESS OR WEAKNESS? NO . HEAD INJURY NO . DEMENTIA NO . CEREBRAL PALSY NO . MULTIPLE SCLEROSIS NO . DIZZINESS NO . HEADACHE NO . STROKES NO . VERTIGO NO . CARDIOLOGY: DO YOU HAVE A PACEMAKER OR DEFIBRILLATOR? NO . ANGINA NO . HEART ATTACK NO . HEART SURGERY NO . CONGESTIVE HEART FAILURE/FLUID OVERLOAD NO . CHEST PAIN NO . HIGH BLOOD PRESSURE NO . IRREGULAR HEART BEAT NO . RESPIRATORY: HAVE YOU BEEN SICK IN THE PAST WEEK? NO . FEVER NO . FLU LIKE SYMPTOMS? NO . CPAP NO . BYPAP NO . ASTHMA NO . EMPHYSEMA NO . CHRONIC LUNG DISEASES NO . SHORTNESS OF BREATH ON EXERTION NO . COUGH NO . SNORING NO . INTEGUMENTARY: DO YOU HAVE ANY RASHES OR OPEN SORES? NO . ALLERGIC/IMMUNO: ARE YOU ALLERGIC TO IV DYE? NO . ANY NEW ALLERGIES? NO . PSYCHIATRIC: DO YOU HAVE THOUGHTS OF HURTING YOURSELF OR SOMEONE ELSE? NO . ARE YOU ABUSED, NEGLECTED, OR IN AN UNSAFE ENVIRONMENT? NO . ENDOCRINOLOGY: ARE YOU DIABETIC? NO . THYROID DISORDER NO . OTHER: DO YOU NEED ANY PRESCRIPTIONS? NO . IF YES, PLEASE LIST: ____ . ANY NEW PROBLEMS WITH YOUR MEDICATIONS? NO . WHEN DID YOU LAST EAT? ____ . WHEN DID YOU LAST DRINK? ____ . WHAT DID YOU LAST DRINK? ____ . NAME OF PERSON DRIVING YOU HOME? ____ . DO YOU HAVE ANY OTHER QUESTIONS OR CONCERNS NO . VITAL SIGNS WT 132.4 LBS, HT 4'11 1/2", BMI 26.29 INDEX, BP 122/77 MM HG, HR 95 /MIN, RR 18 /MIN, TEMP 98.7 F, OXYGEN SAT % 97%, NA INITIALS SC 13:25. EXAMINATION GENERAL EXAMINATION: PATIENT IS ALERT O X 3 AND COOPERATIVE. LUNGS CLEAR, TO AUSCULTATION. HEART: NO MURMURS OR GALLOPS; FACIAL CRANIAL NERVES ARE GROSSLY NORMAL. GOOD SYMMETRY OF FACIAL MUSCLE MOVEMENT. NORMAL VISUAL LARRY. TENDERNESS IN THE LOW BACK AREA. SURGICAL SCAR OVER THE BACK. RIGHT LEG IS WEAKER AT EXTENSION AND FLEXION. PATIENT IS UNABLE TO LIFE HER RIGHT FOOT. CT OF THE LUMBAR SPINE DONE ON 09/25/2018 SHOWS POST LAMINECTOMY CHANGES FROM L3 TO S1. ASSESSMENTS LUMBAR POST-LAMINECTOMY SYNDROME - M96.1 (PRIMARY) LUMBAR RADICULOPATHY - M54.16 TREATMENT LUMBAR POST-LAMINECTOMY SYNDROME CLINICAL NOTES: WE DISCUSSED SEVERAL ISSUES WITH MRS. ROJO'S PAIN MANAGEMENT CASE. I WOULD LIKE THE PATIENT TO START USING MELOXICAM DURING THE DAY AND METAXALONE DURING THE NIGHT TO AID IN PAIN RELIEF. THE PATIENT WILL SPEAK WITH HER PRIMARY CARE PHYSICIAN ABOUT SWITCHING ZOLOFT TO CYMBALTA IN THE FUTURE. THE PATIENT WILL FOLLOW UP IN THE NEXT FEW WEEKS. INSTRUCTIONS WERE GIVEN, QUESTIONS WERE ANSWERED, PATIENT REPORTS UNDERSTANDING AND AGREES WITH THE PLAN. I, AMY LEVY, DOCUMENTED THE ABOVE INFORMATION ACTING A SCRIBE FOR DR. QUINONEZ. I HAVE REVIEWED THE ABOVE DOCUMENT, WRITTEN BY AMY FOX AND I VERIFY THAT IT IS ACCURATE. DEAR ROSMERY CONKLIN PA-C:THANK YOU FOR YOUR KIND REFERRAL OF MRS. ROJO. IF YOU WANT TO DISCUSS HER CASE WITH ME PLEASE CALL ME AT THE PAIN CENTER AT [phone]. SINCERELY,DELMA QUINONEZ, [facility] . OTHERS START METAXALONE TABLET, 400 MG, 1 TABLET NEEDED, ORALLY FOR SPASMS AND PAIN, BEFORE BEDTIME, 30 DAY(S), 30, REFILLS 1 START MELOXICAM TABLET, 15 MG, 1 TABLET WITH FOOD, ORALLY FOR PAIN, ONCE A DAY, 30 DAY(S), 30 TABLET, REFILLS 1 PROCEDURE CODES FA211 ESTABILISHED PATIENT [facility] FACILITY CHARGE A9179 CURRENT MEDS W/DOSAGES DOCUMENTED G8730 PAIN ASSESS POS TOOL F/U PLAN DOC DISPOSITION & COMMUNICATION FOLLOW UP 6-8 WEEKS (REASON: LOW BACK) ELECTRONICALLY SIGNED BY DELMA QUINONEZ MD, MD ON 10/09/2018 AT 04:24 PM EDT DISCLAIMER : THIS IS A VISIT SUMMARY EXTRACTED FROM THE [employer] CHART. IT IS NOT A COPY OF THE [employer] PROGRESS NOTE. MTDD
== END ==
LOC: M PAIN 13:00
PROVIDERS: ATTEND Anesthesiology
DX: M96.1 Postlaminectomy syndrome, not elsewhere classified (principal); M54.16 Radiculopathy, lumbar region; D50.9 Iron deficiency anemia, unspecified; M17.0 Bilateral primary osteoarthritis of knee; E55.9 Vitamin D deficiency, unspecified; G43.909 Migraine, unspecified, not intractable, without status migrainosus; Z79.899 Other long term (current) drug therapy; Z88.5 Allergy status to narcotic agent; Z88.8 Allergy status to other drugs, medicaments and biological substances; Z86.79 Personal history of other diseases of the circulatory system; Z86.59 Personal history of other mental and behavioral disorders

== ENCOUNTER → 2018-11-15 | Outpatient (CLI) | payer MEDICARE ==
[~2018-11-15] MED LIST changes: +CYAN500T8 PO; -VITA500T3 PO
[2018-11-15 13:35] LABS: BASO % 0.4 % (0.0-1.0); HEMATOCRIT 39.8 % (36.0-47.0); HEMOGLOBIN 13.1 g/dl (12.0-15.5); LYMPH # 1.1 10^3/uL (1.5-4.5); LYMPH % 24.7 % (24.0-44.0); MEAN CORPUSCULAR HEMOGLOBIN 29.8 pg (27.0-33.0); MEAN CORPUSCULAR HGB CONC 32.9 g/dl (32.0-36.5); MEAN CORPUSCULAR VOLUME 90.7 fl (80.0-96.0); MONO # 0.2 10^3/uL (0.0-0.8); MONO % 5.3 % (0.0-5.0); NEUTROPHILS # 3.1 10^3/uL (1.8-7.7); NEUTROPHILS % 69.4 % (36.0-66.0); PLATELET COUNT, AUTOMATED 203 10^3/uL (150-450); RED BLOOD COUNT 4.39 10^6/uL (4.00-5.40); WHITE BLOOD COUNT 4.5 10^3/uL (4.0-10.0)
[2018-11-15 14:01] LABS: HEMOGLOBIN A1c 6.6 %
[2018-11-15 14:15] LABS: ALBUMIN 4.2 GM/DL (3.2-5.2); ALT/SGPT 22 U/L (12-78); BILIRUBIN,TOTAL 0.4 MG/DL (0.2-1.0); BLOOD UREA NITROGEN 19 MG/DL (7-18); CALCIUM LEVEL 9.2 MG/DL (8.8-10.2); CARBON DIOXIDE LEVEL 26 MEQ/L (21-32); CHLORIDE LEVEL 108 MEQ/L (98-107); CREATININE FOR GFR 0.81 MG/DL (0.55-1.30); ERYTHROCYTE SEDIMENTATION RATE 15 mm/hr (0-30); GLOMERULAR FILTRATION RATE > 60.0 (>45); GLUCOSE, FASTING 95 MG/DL (70-100); POTASSIUM SERUM 3.5 MEQ/L (3.5-5.1); RHEUMATOID FACTOR QUANT < 10.0 IU/ML (<15.0); SODIUM LEVEL 141 MEQ/L (136-145)
[2018-11-15 14:16] LABS: VITAMIN B12 LEVEL 596 PG/ML
[2018-11-15 14:17] LABS: FOLATE 16.1 NG/ML
[2018-11-20 10:01] LABS: DRVV SCREEN 39.9 SEC
[2018-11-20 14:29] LABS: ANCA-ATYPICAL <1:20 titer (Neg:<1:20); ANTI DOUBLE STRAND-DNA AB 18 IU/mL (0-9); ANTI DS-DNA AB <1:10 titer (.); ANTINUCLEAR ANTIBODIES DIRECT Positive (Negative); CERULOPLASMIN 26.2 mg/dL (19.0-39.0); COPPER PLASMA 125 ug/dL (72-166); CYTOPLASMIC NEUTROP AB ANCA-C <1:20 titer (Neg:<1:20); LEAD BLOOD ADULT <1 ug/dL (0-4); MERCURY LEVEL None Detected ug/L (0.0-14.9); PERINUCLEAR AB ANCA-P <1:20 titer (Neg:<1:20); RNP ANTIBODIES <0.2 AI (0.0-0.9); SJOGREN'S ANTI SS-A 0.6 AI (0.0-0.9); SJOGREN'S ANTI SS-B <0.2 AI (0.0-0.9); SMITH ANTIBODIES <0.2 AI (0.0-0.9); VITAMIN B1 LEVEL WHOLE BLOOD 117.8 nmol/L (66.5-200.0); VITAMIN B6,PYRIDOXAL PHOSPHATE 6.2 ug/L (2.0-32.8); VITAMIN E(ALPHA TOCOPHEROL) 11.6 mg/L (9.0-29.0); VITAMIN E(GAMMA TOCOPHEROL) 2.5 mg/L (0.5-4.9)
== END ==
LOC: M LAB 12:46
PROVIDERS: ATTEND Psychiatry & Neurology Neurology
DX: G62.9 Polyneuropathy, unspecified (principal)

== ENCOUNTER → 2018-12-02 | Outpatient (CLI) | payer MEDICARE ==
--- NOTE | 2018-12-11 01:34 | ECWPNPC ---
PATIENT NAME: ERWIN ROJO : 1950 GENDER: FEMALE VISIT DATE: 12/02/2018 DISCHARGE DATE: 12/02/18 1547 VISIT LOCKED DATE TIME: PHYSICIAN: DELMA QUINONEZ MD RESOURCE: DELMA QUINONEZ MD REASON FOR APPOINTMENT 1. LOW BACK HISTORY OF PRESENT ILLNESS HISTORY OF PRESENT ILLNESS: PAIN THE PATIENT DESCRIBES THE PAIN... 68 YEAR OLD FEMALE PATIENT WITH A HISTORY OF CHRONIC LOW BACK PAIN. THE PATIENT DESCRIBES THE PAIN SHARP, DAILY, AND CONTINUOUS WITH A PAIN SCORE OF 6-9/10 DEPENDING ON PHYSICAL ACTIVITY. THE PATIENT SAYS THE PAIN IS CAUSING DIFFICULTY TO MOVE AND PERFORM HER DAILY ACTIVITIES, SUCH COOKING, CLEANING, AND GROCERY SHOPPING. PATIENT DENIES UNEXPLAINABLE WEIGHT LOSS, FEVER, CHILLS, NEW CHANGES ON HER URINARY OR BOWEL CONTROL. FALL RISK SCREENING: SCREENING :NO FALLS REPORTED IN THE LAST YEAR CURRENT MEDICATIONS TAKING MAY HAVE - - DIRECTED - WEARS HER SEATBELT BELOW HER SHOULDER TO PREVENT EXACERBATION OF UPPER BACK PAIN WHILE DRIVING TAKING VITAMIN D 2000 UNIT TABLET 1 TABLET ORALLY ONCE A DAY TAKING VITAMIN B12 500 MG TABLET 1 TABLET ORALLY ONCE A DAY TAKING ZOLOFT 100 MG TABLET 1 TABLET ORALLY ONCE A DAY TAKING PREDNISONE 20 MG TABLET 2 TABLET ORALLY ONCE A DAY TAKING IMITREX STATDOSE SYSTEM 6 MG/0.5ML SOLUTION AUTO-INJECTOR 0.5 ML NEEDED SUBCUTANEOUS TWICE A DAY TAKING AMBIEN 5 MG TABLET 1 TABLET AT BEDTIME ORALLY ONCE A DAY MDD = 1 TAKING AMITRIPTYLINE HCL 100 MG TABLET 1 TABLET AT BEDTIME ORALLY ONCE A DAY NOT-TAKING OMEPRAZOLE 40 MG CAPSULE DELAYED RELEASE 1 CAPSULE ORALLY ONCE A DAY NOT-TAKING METAXALONE 400 MG TABLET 1 TABLET NEEDED ORALLY FOR SPASMS AND PAIN BEFORE BEDTIME NOT-TAKING MELOXICAM 15 MG TABLET 1 TABLET WITH FOOD ORALLY FOR PAIN ONCE A DAY NOT-TAKING BACLOFEN 10 MG TABLET 1 TABLET WITH FOOD OR MILK ORALLY FOR SPASMS AND PAIN EVERY 8 HOURS NEEDED MDD2 NOT-TAKING CYCLOBENZAPRINE HCL 10 MG TABLET 1 TABLET NEEDED ORALLY THREE TIMES A DAY MEDICATION LIST REVIEWED AND RECONCILED WITH THE PATIENT PAST MEDICAL HISTORY RENAL [id number] ARTHRITIS, KNEES DEGENERATIVE DISC DISEASE - CHRONIC PAIN - FOLLOWED BY [facility] FOR MEDICATION MANAGEMENT ANEMIA - B12 DEFICIENCY ECHOCARDIOGRAM 03/11/14 - DR. STEVO - MODERATELY ENLARGED LV, EF 30-40%. MODERATELY SEVERE AR, MODERATE MR, MILD TR, NORMAL PAP- PT HAS REFUSED REPEAT 02/28 ECHO NL LV SIZE WITH SEGMENTAL WALL MOTION ABN, SUPERIMPOSED ON GLOBAL WALL MOTION ABN LF 40%, AT LEAST MILD DIASTOLIC DYSFXN, AV SCLEROSIS WITHOUT STENOSIS, MILD TO MOD INSUFF, DEG CHANGES TO MV WITH [place] NUCLEAR STRESS TEST - NEG - 2013 DEPRESSION/ANXIETY/HALLUCINATIONS/INSOMNIA IFG VIT D DEF MIGRAINES 06/26 NL RENAL US 07/30 COLONOSCOPY CHANDRALA TUBULAR ADENOMA ALLERGIES BACLOFEN: CONFUSION - SIDE EFFECTS VICODIN: VOMITING - SIDE EFFECTS AMOXICILLIN: RASH - ALLERGY SURGICAL HISTORY HYSTERECTOMY 2000 GALL BLADDER 1987 BACK SURGERY X3 TUMMY TUCK 1999 KIDNEY STONES X2 PIN IN LEFT ANKLE AGE 16 TONSILLECTOMY 1969 FAMILY HISTORY FATHER: 74 YRS, [place] MOTHER: 71 YRS, LUNG CANCER SIBLINGS: ALIVE, BROTHER - HEART DISEASE, PACEMAKER, SMOKER SON(S): ALIVE 44 YRS, NO KNOWN MEDICAL PROBLEMS DAUGHTER(S): ALIVE 47 YRS, SCOLIOSIS, BLOOD CANCER 1 BROTHER(S) . 1 SON(S) , 1 DAUGHTER(S) - HEALTHY. PATIENT DENIES FAMILY HISTORY OF ANY UROLOGICALLY RELATED DISEASES. SOCIAL HISTORY GENERAL: TOBACCO USE ARE YOU A:NONSMOKER OTHERS AT HOME: BOYFRIEND. EDUCATION LEVEL OF EDUCATION:NOT FINISHED HIGH SCHOOL 11TH GRADE DIET: REGULAR. LANGUAGE LANGUAGES SPOKEN:MALAGASY DOMESTIC VIOLENCE DO YOU FEEL SAFE IN YOUR ENVIRONMENT?YES NEW PATIENT PAIN DIARY PATIENT DESCRIBES PAIN :ACHING, STABBING, SHOOTING STATES SHE ALSO HAS WEAKNESS/NUMBESS, HER RIGHT LEG AND FOOT FEEL PRICKLY FROM 0-10, WHAT LEVEL IS YOUR PAIN TODAY?8 PRECIPITATING FACTORS STANDING AND WALKING ALLEVIATING FACTORS PAIN MEDS BMI CARE GOAL FOLLOW-UP ABOVE NORMAL BMI FOLLOW-UPDIETARY MANAGEMENT EDUCATION, GUIDANCE, AND COUNSELING RECREATIONAL DRUG USE DRUG USE?NO EXERCISE: NO REGULAR EXERCISE. 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 NEEDED?NO LUNG CANCER SCREENING SMOKING STATUS:NON SMOKER PAIN CLINIC PFS, CLERGY, PUBLIC HEALTH REFERRALS HAS THE PATIENT BEEN EDUCATED REGARDING HIS/HER PLAN OF CARE?YES HAS THE PATIENT BEEN EDUCATED REGARDING PAIN, THE RISK FOR PAIN, THE IMPORTANCE OF EFFECTIVE PAIN MANAGEMENT, AND THE PAIN ASSESSMENT PROCESS?YES LATEX QUESTIONNAIRE LATEX ALLERGY : HAVE YOU EVER DEVELOPED ANY TYPE OF REACTION AFTER HANDLING LATEX PRODUCTS SUCH RUBBER GLOVES, CONDOMS, DIAPHRAGMS, BALLOONS, SOCKS, OR UNDERWEAR?NO LATEX ALLERGY : HAVE YOU EVER DEVELOPED ANY TYPE OF REACTION DURING OR AFTER DENTAL APPOINTMENT, VAGINAL/RECTAL EXAMINATION, SURGICAL PROCEDURE, OR ANY OTHER EXPOSURE?NO DATE ASKED : 09/12/2018 LATEX RISK : HAVE YOU EVER HAD ANY DIFFICULTY BREATHING OR HIVES AFTER EATING OR HANDLING ANY FRUITS, OR VEGETABLES; SUCH KIWI, BANANAS, STONE FRUITS, OR CHESTNUTSNO LATEX RISK : DO YOU HAVE A PREVIOUS PERSONAL HISTORY OF MORE THAN NINE SURGERIES, SPINA BIFIDA, OR REPEATED CATHERIZATIONS? NO LATEX RISK : ARE YOU FREQUENTLY EXPOSED TO LATEX PRODUCTS IN YOUR OCCUPATION?NO CAFFEINE CAFFEINE USE?NO ADVANCE DIRECTIVE ADVANCE DIRECTIVE DISCUSSED WITH PATIENT:YES PT HAS NO ADVANCED DIRECTIVES, DECLINED INFORMATION OR ASSISTANCE AT THIS TIME JEW NO HOLINESS BELIEFS THAT WOULD IMPACT HEALTH CARE. MARITAL STATUS: .. ALCOHOL SCREENING DID YOU HAVE A DRINK CONTAINING ALCOHOL IN THE PAST YEAR?YES HOW OFTEN DID YOU HAVE SIX OR MORE DRINKS ON ONE OCCASION IN THE PAST YEAR?NEVER (0 POINTS) HOW MANY DRINKS DID YOU HAVE ON A TYPICAL DAY WHEN YOU WERE DRINKING IN THE PAST YEAR?1 OR 2 (0 POINTS) HOW OFTEN DID YOU HAVE A DRINK CONTAINING ALCOHOL IN THE PAST YEAR?FOUR OR MORE TIMES A WEEK (4 POINTS) POINTS4 INTERPRETATIONPOSITIVE OCCUPATION: DISABLED - NO PREVIOUS EMPLOYMENT PRIOR TO DISABILITY. SEXUAL HX HAD SEX IN THE LAST 12 MONTHS (VAGINAL, ORAL, OR ANAL)?: NO, HAVE YOU EVER HAD AN STD?: NO, LMP:: HYSTER. REVIEWED WITH PT 09/30/18 1325 LASREVIEWED WITH PT 12/02/18 1500 LAS. HOSPITALIZATION/MAJOR DIAGNOSTIC PROCEDURE SURGERY RELATED IMHU, DEPRESSION, MTP REVIEW OF SYSTEMS REVIEWED BY: PROVIDER: DELMA QUINONEZ MD . CONSTITUTIONAL: ANY CHANGE IN YOUR MEDICAL CONDITION? NO . CHILLS NO . FEVER NO . INFECTION: DO YOU HAVE NEW INFECTIONS? NO . DO YOU HAVE HISTORY OF MRSA? NO . MUSCULOSKELETAL: ANY NEW PATTERNS OF PAIN OR NUMBNESS? NO . GASTROENTEROLOGY: ANY NEW CHANGE IN BOWEL CONTROL? NO . GENITOURINARY: ANY NEW CHANGE IN BLADDER CONTROL? NO . IS THERE A CHANCE YOU COULD BE ? NO . HEMATOLOGY/LYMPH: DO YOU TAKE ANY BLOOD THINNERS? (FOR EXAMPLE- COUMADIN, PLAVIX, AGGRENOX, PLATEL, PRADAXA, OR XARELTO) NO . WHEN WAS YOUR LAST DOSE? DATE: TIME: . NEUROLOGY: HAVE YOU FALLEN IN THE PAST 12 MONTHS? YES PT REPORTS FREQUENT FALLS, STATES SHE LOSES HER BALANCE AND FALLS. SHE SAYS SHE HAS HAD A DROP FOOT SINCE SURGERY IN [place] 2009, 2010. DENIES INJURY . ANY NEW EXTREMITY NUMBNESS OR WEAKNESS? NO . CARDIOLOGY: DO YOU HAVE A PACEMAKER OR DEFIBRILLATOR? NO . RESPIRATORY: HAVE YOU BEEN SICK IN THE PAST WEEK? NO . FEVER NO . FLU LIKE SYMPTOMS? NO . COUGH NO . INTEGUMENTARY: DO YOU HAVE ANY RASHES OR OPEN SORES? NO . ALLERGIC/IMMUNO: ARE YOU ALLERGIC TO IV DYE? NO . ANY NEW ALLERGIES? NO . PSYCHIATRIC: DO YOU HAVE THOUGHTS OF HURTING YOURSELF OR SOMEONE ELSE? NO . ARE YOU ABUSED, NEGLECTED, OR IN AN UNSAFE ENVIRONMENT? NO . ENDOCRINOLOGY: ARE YOU DIABETIC? NO . OTHER: DO YOU NEED ANY PRESCRIPTIONS? NO . IF YES, PLEASE LIST: ____ . ANY NEW PROBLEMS WITH YOUR MEDICATIONS? NO . WHEN DID YOU LAST EAT? ____ . WHEN DID YOU LAST DRINK? ____ . WHAT DID YOU LAST DRINK? ____ . NAME OF PERSON DRIVING YOU HOME? ____ . DO YOU HAVE ANY OTHER QUESTIONS OR CONCERNS NO . VITAL SIGNS WT 135 LBS, HT 4'11 1/2", BMI 26.81 INDEX, BP 142/65 MM HG, HR 106 /MIN, RR 18 /MIN, TEMP 97.0 F, OXYGEN SAT % 99%, SAFE IN ENV? (Y/N) YES, NA INITIALS AW 1453, REVIEWED BY: VERONICA. EXAMINATION GENERAL EXAMINATION: PATIENT IS ALERT O X 3 AND COOPERATIVE. EXTREME TENDERNESS IN THE RIGHT AND LEFT LOWER BACK AREAS. PRESENCE OF BANDS OF TISSUE AND TRIGGER POINTS WITH RESTRICTION OF MOVEMENT OF THE BACK. CT SCAN OF THE LUMBAR SPINE DONE ON 09/25/2018 SHOWS FUSION AT L3 THROUGH S1 LEVELS. ASSESSMENTS LOW BACK PAIN - M54.5 (PRIMARY) OTHER CHRONIC PAIN - G89.29 MYALGIA, OTHER SITE - M79.18 TREATMENT LOW BACK PAIN CLINICAL NOTES: WE DISCUSSED SEVERAL ISSUES WITH MS. ROJO'S PAIN MANAGEMENT CASE. DUE TO THE TRIGGER POINTS, BANDS OF TISSUE, AND RESTRICTION OF MOVEMENT, I WOULD LIKE TO MOVE FORWARD WITH A TRIGGER POINT INJECTION AT THIS TIME. WE DISCUSSED THE BENEFITS, RISKS, AND ALTERNATIVES OF THE INJECTION AND THE PATIENT WOULD LIKE TO PROCEED. I DISCUSSED WITH THE PATIENT ABOUT THE OPTIONS OF A SACROILIAC JOINT BLOCK AND THE PATIENT IS A GOOD CANDIDATE FOR A DCS TRIAL IN THE FUTURE. I AM SEEKING A DOCTOR TO DOCTOR NARCOTIC AGREEMENT FROM THE PATIENT'S PRIMARY CARE PHYSICIAN. THE PATIENT WILL FOLLOW UP IN 6 WEEKS WITH NURSE PRACTITIONER ATUL. INSTRUCTIONS WERE GIVEN, QUESTIONS WERE ANSWERED, PATIENT REPORTS UNDERSTANDING AND AGREES WITH THE PLAN. I, MEREDITH DAN, DOCUMENTED THE ABOVE INFORMATION ACTING A SCRIBE FOR DR. QUINONEZ. I HAVE REVIEWED THE ABOVE DOCUMENT, WRITTEN BY MEREDITH FOX AND I VERIFY THAT IT IS ACCURATE. . PROCEDURE CODES FA211 ESTABILISHED PATIENT [facility] FACILITY CHARGE G8427 CURRENT MEDS W/DOSAGES DOCUMENTED G8730 PAIN ASSESS POS TOOL F/U PLAN DOC DISPOSITION & COMMUNICATION FOLLOW UP 6 WEEKS (REASON: F/U WITH DEBONER) ELECTRONICALLY SIGNED BY DELMA QUINONEZ MD, MD ON 12/10/2018 AT 03:13 PM EDT DISCLAIMER : THIS IS A VISIT SUMMARY EXTRACTED FROM THE [employer] CHART. IT IS NOT A COPY OF THE [employer] PROGRESS NOTE. LISSA
== END ==
LOC: M PAIN 14:45
PROVIDERS: ATTEND Anesthesiology
DX: G89.29 Other chronic pain (principal); M54.5 Low back pain; M79.18 Myalgia, other site; M17.0 Bilateral primary osteoarthritis of knee; D51.9 Vitamin B12 deficiency anemia, unspecified; F32.9 Major depressive disorder, single episode, unspecified; I08.3 Combined rheumatic disorders of mitral, aortic and tricuspid valves; F41.9 Anxiety disorder, unspecified; G47.00 Insomnia, unspecified; R73.01 Impaired fasting glucose; G43.909 Migraine, unspecified, not intractable, without status migrainosus; Z87.442 Personal history of urinary calculi; Z88.1 Allergy status to other antibiotic agents; Z88.2 Allergy status to sulfonamides; Z88.5 Allergy status to narcotic agent; Z79.899 Other long term (current) drug therapy; Z90.710 Acquired absence of both cervix and uterus; Z90.49 Acquired absence of other specified parts of digestive tract

== ENCOUNTER → 2018-12-10 | Outpatient (CLI) | payer MEDICARE ==
--- NOTE | 2018-12-11 23:44 | ECWPNPC ---
PATIENT NAME: ERWIN ROJO : 1950 GENDER: FEMALE VISIT DATE: 12/10/2018 DISCHARGE DATE: 12/10/18 1024 VISIT LOCKED DATE TIME: PHYSICIAN: ATUL PORTILLO RESOURCE: ATUL PORTILLO REASON FOR APPOINTMENT 1. PER DR. QUINONEZ HISTORY OF PRESENT ILLNESS HISTORY OF PRESENT ILLNESS: PAIN THE PATIENT DESCRIBES THE PAIN... 68 YEAR OLD FEMALE IN FOR CHRONIC PAIN. SHE RATES HER PAIN AT AN 8/10 CURRENTLY. SHE REFUSES PROCEDURES AND STATES THAT NEURONTIN HAS NOT BEEN HELPFUL IN THE PAST. FALL RISK SCREENING: SCREENING :NO FALLS REPORTED IN THE LAST YEAR CURRENT MEDICATIONS TAKING MAY HAVE - - DIRECTED - WEARS HER SEATBELT BELOW HER SHOULDER TO PREVENT EXACERBATION OF UPPER BACK PAIN WHILE DRIVING TAKING VITAMIN D 2000 UNIT TABLET 1 TABLET ORALLY ONCE A DAY TAKING VITAMIN B12 500 MG TABLET 1 TABLET ORALLY ONCE A DAY TAKING ZOLOFT 100 MG TABLET 1 TABLET ORALLY ONCE A DAY TAKING IMITREX STATDOSE SYSTEM 6 MG/0.5ML SOLUTION AUTO-INJECTOR 0.5 ML NEEDED SUBCUTANEOUS TWICE A DAY TAKING AMBIEN 5 MG TABLET 1 TABLET AT BEDTIME ORALLY ONCE A DAY MDD = 1 TAKING AMITRIPTYLINE HCL 100 MG TABLET 1 TABLET AT BEDTIME ORALLY ONCE A DAY NOT-TAKING PREDNISONE 20 MG TABLET 2 TABLET ORALLY ONCE A DAY NOT-TAKING OMEPRAZOLE 40 MG CAPSULE DELAYED RELEASE 1 CAPSULE ORALLY ONCE A DAY NOT-TAKING METAXALONE 400 MG TABLET 1 TABLET NEEDED ORALLY FOR SPASMS AND PAIN BEFORE BEDTIME NOT-TAKING MELOXICAM 15 MG TABLET 1 TABLET WITH FOOD ORALLY FOR PAIN ONCE A DAY NOT-TAKING BACLOFEN 10 MG TABLET 1 TABLET WITH FOOD OR MILK ORALLY FOR SPASMS AND PAIN EVERY 8 HOURS NEEDED MDD2 NOT-TAKING CYCLOBENZAPRINE HCL 10 MG TABLET 1 TABLET NEEDED ORALLY THREE TIMES A DAY MEDICATION LIST REVIEWED AND RECONCILED WITH THE PATIENT PAST MEDICAL HISTORY RENAL [id number] ARTHRITIS, KNEES DEGENERATIVE DISC DISEASE - CHRONIC PAIN - FOLLOWED BY [facility] FOR MEDICATION MANAGEMENT ANEMIA - B12 DEFICIENCY ECHOCARDIOGRAM 03/11/14 - DR. WHITESIDE - MODERATELY ENLARGED LV, EF 30-40%. MODERATELY SEVERE AR, MODERATE MR, MILD TR, NORMAL PAP- PT HAS REFUSED REPEAT 02/28 ECHO NL LV SIZE WITH SEGMENTAL WALL MOTION ABN, SUPERIMPOSED ON GLOBAL WALL MOTION ABN LF 40%, AT LEAST MILD DIASTOLIC DYSFXN, AV SCLEROSIS WITHOUT STENOSIS, MILD TO MOD INSUFF, DEG CHANGES TO MV WITH [place] NUCLEAR STRESS TEST - NEG - 2013 DEPRESSION/ANXIETY/HALLUCINATIONS/INSOMNIA IFG VIT D DEF MIGRAINES 06/26 NL RENAL US 07/30 COLONOSCOPY CHANDRALA TUBULAR ADENOMA ALLERGIES BACLOFEN: CONFUSION - SIDE EFFECTS VICODIN: VOMITING - SIDE EFFECTS AMOXICILLIN: RASH - ALLERGY SURGICAL HISTORY HYSTERECTOMY 2000 GALL BLADDER 1987 BACK SURGERY X3 TUMMY TUCK 1999 KIDNEY STONES X2 PIN IN LEFT ANKLE AGE 16 TONSILLECTOMY 1969 FAMILY HISTORY FATHER: 74 YRS, [place] MOTHER: 71 YRS, LUNG CANCER SIBLINGS: ALIVE, BROTHER - HEART DISEASE, PACEMAKER, SMOKER SON(S): ALIVE 44 YRS, NO KNOWN MEDICAL PROBLEMS DAUGHTER(S): ALIVE 47 YRS, SCOLIOSIS, BLOOD CANCER 1 BROTHER(S) . 1 SON(S) , 1 DAUGHTER(S) - HEALTHY. PATIENT DENIES FAMILY HISTORY OF ANY UROLOGICALLY RELATED DISEASES. SOCIAL HISTORY GENERAL: TOBACCO USE ARE YOU A:NONSMOKER OTHERS AT HOME: BOYFRIEND. EDUCATION LEVEL OF EDUCATION:NOT FINISHED HIGH SCHOOL 11TH GRADE DIET: REGULAR. LANGUAGE LANGUAGES SPOKEN:JAPANESE DOMESTIC VIOLENCE DO YOU FEEL SAFE IN YOUR ENVIRONMENT?YES NEW PATIENT PAIN DIARY PATIENT DESCRIBES PAIN :ACHING, STABBING, SHOOTING STATES SHE ALSO HAS WEAKNESS/NUMBESS, HER RIGHT LEG AND FOOT FEEL PRICKLY FROM 0-10, WHAT LEVEL IS YOUR PAIN TODAY?8 PRECIPITATING FACTORS STANDING AND WALKING ALLEVIATING FACTORS PAIN MEDS BMI CARE GOAL FOLLOW-UP ABOVE NORMAL BMI FOLLOW-UPDIETARY MANAGEMENT EDUCATION, GUIDANCE, AND COUNSELING RECREATIONAL DRUG USE DRUG USE?NO EXERCISE: NO REGULAR EXERCISE. LEARNING BARRIERS / SPECIAL NEEDS BARRIERS TO LEARNING?NO HEARING IMPAIRED?NO VISION IMPAIRED?NO COGNITIVELY IMPAIRED?NO READINESS TO LEARN?YES LEARNING PREFERENCES?NO LEARNING CAPABILITIES PRESENT?YES EMOTIONAL BARRIERS?NO SPECIAL DEVICES?YES :CANE, WALKER FIELD MARKETING SPECIALIST NEEDED?NO LUNG CANCER SCREENING SMOKING STATUS:NON SMOKER PAIN CLINIC PFS, CLERGY, PUBLIC HEALTH REFERRALS HAS THE PATIENT BEEN EDUCATED REGARDING HIS/HER PLAN OF CARE?YES HAS THE PATIENT BEEN EDUCATED REGARDING PAIN, THE RISK FOR PAIN, THE IMPORTANCE OF EFFECTIVE PAIN MANAGEMENT, AND THE PAIN ASSESSMENT PROCESS?YES LATEX QUESTIONNAIRE LATEX ALLERGY : HAVE YOU EVER DEVELOPED ANY TYPE OF REACTION AFTER HANDLING LATEX PRODUCTS SUCH RUBBER GLOVES, CONDOMS, DIAPHRAGMS, BALLOONS, SOCKS, OR UNDERWEAR?NO LATEX ALLERGY : HAVE YOU EVER DEVELOPED ANY TYPE OF REACTION DURING OR AFTER DENTAL APPOINTMENT, VAGINAL/RECTAL EXAMINATION, SURGICAL PROCEDURE, OR ANY OTHER EXPOSURE?NO DATE ASKED : 09/12/2018 LATEX RISK : HAVE YOU EVER HAD ANY DIFFICULTY BREATHING OR HIVES AFTER EATING OR HANDLING ANY FRUITS, OR VEGETABLES; SUCH KIWI, BANANAS, STONE FRUITS, OR CHESTNUTSNO LATEX RISK : DO YOU HAVE A PREVIOUS PERSONAL HISTORY OF MORE THAN NINE SURGERIES, SPINA BIFIDA, OR REPEATED CATHERIZATIONS? NO LATEX RISK : ARE YOU FREQUENTLY EXPOSED TO LATEX PRODUCTS IN YOUR OCCUPATION?NO CAFFEINE CAFFEINE USE?NO ADVANCE DIRECTIVE ADVANCE DIRECTIVE DISCUSSED WITH PATIENT:YES PT HAS NO ADVANCED DIRECTIVES, DECLINED INFORMATION OR ASSISTANCE AT THIS TIME TEMPLE NO BAPTISM BELIEFS THAT WOULD IMPACT HEALTH CARE. MARITAL STATUS: .. ALCOHOL SCREENING DID YOU HAVE A DRINK CONTAINING ALCOHOL IN THE PAST YEAR?YES HOW OFTEN DID YOU HAVE SIX OR MORE DRINKS ON ONE OCCASION IN THE PAST YEAR?NEVER (0 POINTS) HOW MANY DRINKS DID YOU HAVE ON A TYPICAL DAY WHEN YOU WERE DRINKING IN THE PAST YEAR?1 OR 2 (0 POINTS) HOW OFTEN DID YOU HAVE A DRINK CONTAINING ALCOHOL IN THE PAST YEAR?FOUR OR MORE TIMES A WEEK (4 POINTS) POINTS4 INTERPRETATIONPOSITIVE OCCUPATION: DISABLED - NO PREVIOUS EMPLOYMENT PRIOR TO DISABILITY. SEXUAL HX HAD SEX IN THE LAST 12 MONTHS (VAGINAL, ORAL, OR ANAL)?: NO, HAVE YOU EVER HAD AN STD?: NO, LMP:: HYSTER. REVIEWED WITH PT 09/30/18 1325 LASREVIEWED WITH PT 12/02/18 1500 LASREVIEWED WITH PT 12/10/18 0922 NLJ. HOSPITALIZATION/MAJOR DIAGNOSTIC PROCEDURE SURGERY RELATED IMHU, DEPRESSION, MTP REVIEW OF SYSTEMS REVIEWED BY: PROVIDER: WILLIAM KHALIL . CONSTITUTIONAL: ANY CHANGE IN YOUR MEDICAL CONDITION? NO . CHILLS NO . FEVER NO . INFECTION: DO YOU HAVE NEW INFECTIONS? NO . DO YOU HAVE HISTORY OF MRSA? NO . MUSCULOSKELETAL: ANY NEW PATTERNS OF PAIN OR NUMBNESS? NO . GASTROENTEROLOGY: ANY NEW CHANGE IN BOWEL CONTROL? NO . GENITOURINARY: ANY NEW CHANGE IN BLADDER CONTROL? NO . IS THERE A CHANCE YOU COULD BE ? NO . HEMATOLOGY/LYMPH: DO YOU TAKE ANY BLOOD THINNERS? (FOR EXAMPLE- COUMADIN, PLAVIX, AGGRENOX, PLATEL, PRADAXA, OR XARELTO) NO . WHEN WAS YOUR LAST DOSE? DATE: TIME: . NEUROLOGY: HAVE YOU FALLEN IN THE PAST 12 MONTHS? YES- STATES SHE FALLS EVERY COUPLE OF DAYS, FELL ABIOUT 3 DAYS AGO AND INJURED HER NOSE AND LEFT EYE, AND LIP- STATES SHE DID NOT RECEIVE ANY MEDICAL CARE. STATES FALLS ARE RELATED TO NOT BEING ABLE TO INDEPENDENT TRADER RIGHT LEG, . ANY NEW EXTREMITY NUMBNESS OR WEAKNESS? YES- STATES SHE FEELS TINGLING IN RIGHT LEG DOWN TO FOOT WHICH IS ALSO NUMB AND TINGLIY, STATES IT IS NOT NEW FOR HER . CARDIOLOGY: DO YOU HAVE A PACEMAKER OR DEFIBRILLATOR? NO . RESPIRATORY: HAVE YOU BEEN SICK IN THE PAST WEEK? NO . FEVER NO . FLU LIKE SYMPTOMS? NO . COUGH NO . INTEGUMENTARY: DO YOU HAVE ANY RASHES OR OPEN SORES? NO . ALLERGIC/IMMUNO: ARE YOU ALLERGIC TO IV DYE? NO . ANY NEW ALLERGIES? NO . PSYCHIATRIC: DO YOU HAVE THOUGHTS OF HURTING YOURSELF OR SOMEONE ELSE? NO . ARE YOU ABUSED, NEGLECTED, OR IN AN UNSAFE ENVIRONMENT? NO . ENDOCRINOLOGY: ARE YOU DIABETIC? NO . OTHER: DO YOU NEED ANY PRESCRIPTIONS? YES- TAKES NO PAIN MEDS AT THIS TIME. STATES SHE IS INTERESTED IN TAKING SOMETHING FOR PAIN. . IF YES, PLEASE LIST: ____ . ANY NEW PROBLEMS WITH YOUR MEDICATIONS? NO . WHEN DID YOU LAST EAT? ____ . WHEN DID YOU LAST DRINK? ____ . WHAT DID YOU LAST DRINK? ____ . NAME OF PERSON DRIVING YOU HOME? ____ . DO YOU HAVE ANY OTHER QUESTIONS OR CONCERNS YES- PATIENT STATES SHE HAS CONSTANT PAIN, TAKES NOTHING FOR PAIN AT THIS TIME, STATES SHE DOES NOT WANT TO HAVE TPI. STATES SHE HAS HAD THEM IN THE PAST AND FEELS LIKE THEY DID NOT WORK FOR HER. . VITAL SIGNS WT 132.4 LBS, HT 4'11 1/2", BMI 26.29 INDEX, BP 148/65 MM HG, HR 101 /MIN, RR 16 /MIN, TEMP 97.6 F, OXYGEN SAT % 96%, NA INITIALS 09:35 SC. EXAMINATION GENERAL EXAMINATION: GENERALNO ACUTE DISTRESS, WELL NOURISHED AND HYDRATED. PSYCHAPPROPRIATE MOOD AND AFFECT . LUNGS:CLEAR TO AUSCULTATION BILATERALLY, NO WHEEZES, RHONCHI, RALES. HEART:NO MURMURS, REGULAR RATE AND RHYTHM. BACK: DENIES POINT TENDERNESS. ASSESSMENTS LUMBAR RADICULOPATHY - M54.16 (PRIMARY) TREATMENT LUMBAR RADICULOPATHY START BACLOFEN TABLET, 10 MG, 1/2 TABLET FOR THE FIRST 5 DAYS THEN GO TO 1 FULL TABLET, ORALLY, THREE TIMES A DAY, 30 DAY(S), 90 CLINICAL NOTES: 68 YEAR OLD FEMALE IN FOR CHRONIC PAIN. GIVEN PRESENTING SYMPTOMS AND RESULTS OF PHYSICAL EXAMINATION RECOMMENDED BACLOFEN WITH FOLLOW UP IN 1 MONTH TO DETERMINE EFFICACY OF TREATMENT. PATIENT HAS EXPRESSED UNDERSTANDING OF AND WAS IN AGREEMENT WITH TREATMENT PLAN. GIVEN TIME TO ASK QUESTIONS AND EXPRESS CONCERNS. OTHERS NOTES: BACLOFEN ORAL MATERIAL WAS PRINTED. PROCEDURE CODES FA211 ESTABILISHED PATIENT [facility] CHARGE DISPOSITION & COMMUNICATION FOLLOW UP 4 WEEKS (REASON: MEDICATION ) ELECTRONICALLY SIGNED BY WILLARD MONTGOMERY ON 12/11/2018 AT 08:56 AM EDT DISCLAIMER : THIS IS A VISIT SUMMARY EXTRACTED FROM THE [facility] CHART. IT IS NOT A COPY OF THE [employer] PROGRESS NOTE. LISSA
== END ==
LOC: M PAIN 09:30
PROVIDERS: ATTEND Family Medicine
DX: M54.16 Radiculopathy, lumbar region (principal); M17.0 Bilateral primary osteoarthritis of knee; D51.9 Vitamin B12 deficiency anemia, unspecified; F32.9 Major depressive disorder, single episode, unspecified; F41.9 Anxiety disorder, unspecified; R73.01 Impaired fasting glucose; E55.9 Vitamin D deficiency, unspecified; G43.909 Migraine, unspecified, not intractable, without status migrainosus; Z90.710 Acquired absence of both cervix and uterus; Z90.49 Acquired absence of other specified parts of digestive tract; Z87.442 Personal history of urinary calculi; Z79.899 Other long term (current) drug therapy; Z86.010 Personal history of colon polyps; Z88.8 Allergy status to other drugs, medicaments and biological substances; Z88.0 Allergy status to penicillin; Z88.5 Allergy status to narcotic agent

== ENCOUNTER → 2019-07-08 | Outpatient (REF) | payer MEDICARE ==
[~2019-07-08] MED LIST changes: -OMEP40CA2 PO; +OMEP40CA97 PO; -SERT-155 PO; +SERT50TA29 PO
== END ==
LOC: M LAB REF 16:36
PROVIDERS: ATTEND Internal Medicine
DX: D72.819 Decreased white blood cell count, unspecified (principal)

== ENCOUNTER → 2019-11-10 | Outpatient (REF) | payer MEDICARE ==
[~2019-11-10] MED LIST changes: +CYCL-707 PO; -CYCL10TA PO
== END ==
LOC: M LAB REF 12:14
PROVIDERS: ATTEND Internal Medicine
DX: D72.819 Decreased white blood cell count, unspecified (principal)

== ENCOUNTER 2019-12-03 17:59 | Inpatient (IN) | payer MEDICARE ==
[~2019-12-03] VITALS: Ht 165.1 cm; Wt 61.3 kg
[2019-12-03] MEDS ORDERED: NS 1,000 ML IV ONE ×2 (18:15→22:15)
--- NOTE | 2019-12-03 18:39 | REP ---
Oral chest x-ray: Single view. History: Altered mental status. Comparison chest x-ray: January 31 X 1015. Findings: Monitoring electrodes are seen. Oxygen delivery tubing is seen. There are clips in the right upper quadrant of the abdomen. The lungs are well inflated and free of infiltrate. The pleural angles are sharp. Heart size is normal. Pulmonary vasculature is not increased. Impression: No acute disease. Electronically Signed by Lyndon Calloway MD 12/03/2019 06:32 P
[2019-12-03] MEDS ORDERED: DULO1CAP6 PO (18:50)
[2019-12-03] MEDS ORDERED: DIVA250T67 PO (18:50)
[2019-12-03 19:57] LABS: BASO % 0.2 % (0.0-1.0); HEMATOCRIT 35.5 % (36.0-47.0); HEMOGLOBIN 11.4 g/dl (12.0-15.5); LYMPH # 0.5 10^3/uL (1.5-5.0); LYMPH % 3.7 % (24.0-44.0); MEAN CORPUSCULAR HEMOGLOBIN 28.5 pg (27.0-33.0); MEAN CORPUSCULAR HGB CONC 32.1 g/dl (32.0-36.5); MEAN CORPUSCULAR VOLUME 88.8 fl (80.0-96.0); MONO # 0.3 10^3/uL (0.0-0.8); MONO % 2.5 % (0.0-5.0); NEUTROPHILS # 11.9 10^3/uL (1.5-8.5); NEUTROPHILS % 93.2 % (36.0-66.0); PLATELET COUNT, AUTOMATED 244 10^3/uL (150-450); WHITE BLOOD COUNT 12.8 10^3/uL (4.0-10.0)
--- NOTE | 2019-12-03 20:23 | REPVR ---
PROCEDURE INFORMATION: Exam: CT Head Without Contrast Exam date and time: 12/03/2019 7:59 PM Age: 69 years old Clinical indication: Pain; Headache; Additional info: Altered mental status TECHNIQUE: Imaging protocol: Computed tomography of the head without contrast. Radiation optimization: All CT scans at this facility use at least one of these dose optimization techniques: automated exposure control; mA and/or kV adjustment per patient size (includes targeted exams where dose is matched to clinical indication); or iterative reconstruction. COMPARISON: CT Head without contrast 09/25/2018 4:35 PM FINDINGS: Brain: Mild nonspecific hypodensities of the periventricular and deep subcortical white matter, most likely secondary to chronic small vessel ischemic change. No intracranial hemorrhage or extra-axial fluid collection. No evidence of mass effect or midline shift. Turner-white matter differentiation is normal. Ventricles: Mild prominence of the ventricles and sulci, most likely attributed to parenchymal volume loss. Bones/joints: No acute osseus lesion or fracture. Sinuses: Unremarkable as visualized. Mastoid air cells: Unremarkable. Soft tissues: Unremarkable. IMPRESSION: 1. No acute intracranial pathology. 2. Other chronic findings, as above. Electronically signed by: Adalberto Rodriguez On 12/03/2019 20:23:09 PM
[2019-12-03 20:39] LABS: ACETAMINOPHEN LEVEL < 2.0 UG/ML (10.0-30.0); ALBUMIN 3.7 GM/DL (3.2-5.2); ALT/SGPT 37 U/L (12-78); BILIRUBIN,DIRECT 0.4 MG/DL (0.0-0.2); BLOOD UREA NITROGEN 50 MG/DL (7-18); CALCIUM LEVEL 9.3 MG/DL (8.8-10.2); CARBON DIOXIDE LEVEL 24 MEQ/L (21-32); CHLORIDE LEVEL 101 MEQ/L (98-107); CK-MB VALUE MASS 3.2 NG/ML (<3.6); CPK CREATINE PHOSPHOKINASE 148 U/L (26-192); ETHYL ALCOHOL (ETHANOL) < 0.003 % (0.000-0.010); GLOMERULAR FILTRATION RATE 13.4 (>45); GLUCOSE, FASTING 187 MG/DL (70-100); MB/CK RELATIVE INDEX 2.16 (< OR =4); POTASSIUM SERUM 4.9 MEQ/L (3.5-5.1); SALICYLATE LEVEL 6.3 MG/DL (5.0-30.0); SODIUM LEVEL 137 MEQ/L (136-145); TOTAL PROTEIN 7.3 GM/DL (6.4-8.2); TROPONIN I < 0.02 NG/ML (< 0.10)
[2019-12-03] MEDS ORDERED: DULoxetine 30 MG CAP (CYMBALTA) PO SCH (21:00)
[2019-12-03] MEDS ORDERED: DIVALPROEX 250 MG TAB PO SCH (21:00)
[2019-12-03] MEDS ORDERED: AMITRIPTYLINE 50 MG TAB PO SCH (21:00)
[2019-12-03] MEDS ORDERED: SODIUM CHLORIDE 0.9% 1000ML IV STA (22:07)
[2019-12-03] MEDS ORDERED: HYDR12.55 PO (22:08)
[2019-12-03] MEDS ORDERED: LISI-542 PO (22:08)
[2019-12-03] MEDS ORDERED: OXYC10TA12 PO (22:08)
[2019-12-03] MEDS ORDERED: LIDOCAINE 2% 5ML JELLY UROJET TOP ONE (22:15)
[2019-12-03] MEDS ORDERED: ACETAMINOPHEN TAB 650MG DOSE (2X325MG) PO PRN (22:15)
[2019-12-03] MEDS ORDERED: CEFEPIME HCL 2 GM in D5W 50 ML IV SCH (23:00)
[2019-12-03] MEDS ORDERED: CEFEPIME HCL 1 GM in D5W MINI-BAG PLUS 50 ML IV SCH (23:00)
[2019-12-03 23:11] LABS: AMPHETAMINES LEVEL URINE NEGATIVE (NEGATIVE); BARBITURATES URINE NEGATIVE (NEGATIVE); BENZODIAZEPINES URINE NEGATIVE (NEGATIVE); CANNABINOIDS URINE NEGATIVE (NEGATIVE); COCAINE METABOLITE URINE NEGATIVE (NEGATIVE); METHADONE URINE NEGATIVE (NEGATIVE); OPIATES URINE POSITIVE (NEGATIVE); PHENCYCLIDINE URINE NEGATIVE (NEGATIVE)
[2019-12-04] MEDS ORDERED: VANCOMYCIN INTERMITTENT/PULSE DOSING BY CLINICAL PHARMACIST PER DOSING PROTOCOL XX SCH
[2019-12-04] MEDS ORDERED: VANCOMYCIN HCL 1,000 MG, VIAL MATE ADAPTER 1 EACH in D5W 250 ML IV ONE ×3
[2019-12-04 00:08] VITALS: BP 118/55
[2019-12-04 01:00] VITALS: BP 108/81
[2019-12-04] MEDS ORDERED: oxyCODONE 5MG TAB PO PRN (01:30)
[2019-12-04] MEDS ORDERED: LORazepam 2 MG TAB PO PRN (01:45)
--- NOTE | 2019-12-04 03:14 | HPEPDOC ---
General Date of Admission Dec 03, 2019 at 22:07 Date of Service: Dec 03, 2019 Attending Physician: KRYS BAUMAN MD Chief Complaint The patient is a 69-year-old female admitted with a reason for visit of Sepsis. Source: Patient Exam Limitations: No limitations Timing/Duration: Day(s) Severity: Severe Associated Symptoms: Mechanical fall History of Present Illness 69 yo W with a history of severe migraines, depression, anxiety, significant alcohol intake with last drink today at 11am? though she reports a couple of drinks daily, chronic back pain and insomnia who was brought into the ED after being found down in the bathroom after reportedly having fallen from feeling weak and shaky and hit her head. She reports recent diarrhea since yesterday, poor PO, generalized weakness with shakiness, without fever, chills, abdominal pain, chest pain, shortness of breath, recent travel or sick contacts. Basically her boyfriend found her down and she had been incontinent of feces at that time. She denies any LOC, recognizable seizure like activity or loss of bladder control. She did report hitting her head. Upon EMS arrival there was mention of wide complex tachycardia that was not present by the time she was in the ED. She had a thready pulse and hypotensive to low 80s on arrival and was given 1L NS for dehydration despite leukocytosis 10 12.8, AMS, tachycardia suspicious for severe sepsis. On my evaluation I recommended more fluids for which she was given an additional liter and I ordered BCx, UA with reflex to UCx, GI panel, gave a sepsis bolus of ~2L for 30cc/kg and gave empiric vanc/cefepime. Of note, initial workup was notable for the leukocytosis and in addition, mild anemia to 11.4, NORMA to Cr 3.6 and BUN 50, lactic acidosis to 4.9 and elevated TSH to 5.14. I am now admitting her to the PCU after response to aggressive hydration with SBP now low 100s, improved mentation for severe sepsis, and at this point her UA is showing 1+ bacteria, 5 WBCs and 34 RBCs. Home Medications Scheduled Amitriptyline HCl (Amitriptyline HCl) 100 Mg Tab, 100 MG PO QHS, (Reported) Divalproex Sodium (Divalproex Sodium) 250 Mg Tablet.dr, 250 MG PO QHS, (Report ed) Duloxetine Hcl (Duloxetine HCl) 60 Mg Capsule.dr, 60 MG PO BID, (Reported) Hydrochlorothiazide (Hydrochlorothiazide) 12.5 Mg Tablet, 12.5 MG PO DAILY, (Reported) Lisinopril (Lisinopril) 5 Mg Tablet, 5 MG PO DAILY, (Reported) Zolpidem Tartrate (Ambien) 5 Mg Tab, 5 MG PO QHS, (Reported) Scheduled PRN Oxycodone HCl (Oxycodone HCl) 10 Mg Tablet, 10 MG PO QID PRN for PAIN, (Reported) Allergies Coded Allergies: latex (Verified Allergy, Intermediate, RASH, 08/07/18) baclofen (Verified Adverse Reaction, Intermediate, LEG WEAKNESS, 08/07/18) hydrocodone (Verified Adverse Reaction, Intermediate, LEG WEAKNESS, 08/07/18) Past Medical History Medical History Severe migraines, depression, anxiety, significant alcohol intake with last drink on the day of admission at 11am, chronic back pain and insomnia Surgical History History of back surgery Hysterectomy Cholecystectomy liposuction L ankle surgery Family History Mother- from cancer Father- from an [place] Social History * Smoker: Denies Alcohol: heavy Drugs: denies Recent Travel/Sick Contacts: Denies: Recent travel, Recent sick contacts Psychosocial History: Anxiety, Depression Lives with her boyfriend. Has adult children. A-FIB/CHADSVASC A-FIB History Current/History of A-Fib/PAF?: No Current PO Anticoag Therapy: No Age/Risk Factor Scoring CHADSVASC: CHADSVASC Response (Comments) Value Age Risk Factor Age 65-74 years old 1 Gender Risk Factor Female 1 Hx of CHF No 0 Hx of HTN Yes 1 Hx of Stroke/TIA/or VTE No 0 Hx of Diabetes No 0 Hx of Vascular Disease No 0 Total 3 Treatment Treatment ordered: NONE Reason Anticoagulant not given: Not indicated/[id number] Review of Systems Constitutional: Reports: Malaise, Weakness; Denies: Chills, Fever, Night Sweats, Fatigue, Weight Loss Eyes: Denies: Pain, Vision change ENT: Denies: Head Aches, Ear Pain, Dysphagia Skin: Denies: Rash, Lesions, Breakdown Pulmonary: Denies: Dyspnea, Cough Cardiovascular: Denies: Chest Pain, Palpitations, Orthopnea, Paroxysmal Noc. Dyspnea, Lt Headedness Gastrointestinal: Reports: Vomiting (1 episode this morning), Diarrhea; Denies: Nausea, Abdominal Pain, Constipation, Melena, Hematochezia Genitourinary: Denies: Dysuria, Frequency, Incontinence, Retention Hematologic: Denies: Bruising, Bleeding Excessively Endocrine: Denies: Polydipsia, Polyphagia, Polyuria, Heat Intolerance, Cold Intolerance, Other Endocrine Sx Musculoskeletal: Reports: Back Pain (acute on chronic. Central lumbar spine pain) Neurological: Reports: Weakness, Confusion (Was reportedly somnolent per EMS on initial evaluation); Denies: Numbness, Change in speech, Seizures Psych: Denies: Anxiety, Depression Physical Examination General Exam: Positive: Other (disheveled, ill appearing) Eye Exam: Positive: PERRLA, Conjunctiva & lids normal, EOMI; Negative: Sclera icteric ENT Exam: Positive: Atraumatic, Tongue Midline, Nares Patent; Negative: Mucous membr. moist/pink (very dry MM, poor dentition) Neck Exam: Positive: Supple; Negative: JVD, thyromegaly, +2 carotid pulse wo bruit, Lymphadenopathy Chest Exam: Positive: Clear to auscultation, Normal air movement; Negative: Rales, Rhonchi, Wheezing Heart Exam: Positive: Tachycardic, Regular Rhythm, Normal S1, Normal S2, Mu rmurs (systolic murmur) Telemetry: Positive: Sinus, Tachycardia Abdomen Exam: Positive: Normal bowel sounds, Soft, Other (has healed surgical scars); Negative: Tenderness, Hepatospenomegaly, Mass, Hernia Extremity Exam: Positive: Normal pulses; Negative: Clubbing, Cyanosis, Edema Skin Exam: Positive: Lesion; Negative: Nl turgor and temperature (dry skin, with skin tenting), Breakdown Neuro Exam: Positive: Normal Speech, Strength at 5/5 X4 ext, Normal Tone, Cranial Nerves 3-12 NL Psych Exam: Positive: Mental status NL, Oriented x 3 Vital Signs Vital Signs Date Time Temp Pulse Resp B/P (MAP) Pulse Ox O2 Delivery O2 Flow Rate FiO2 12/04/19 01:00 87 108/81 (90) 94 12/04/19 00:08 98.4 20 Room Air Laboratory Data Labs 24H Laboratory Tests 2 12/03/19 19:07: Bedside Glucose (Misc Panel) 196H 12/03/19 19:38: Immature Granulocyte % (Auto) 0.4, Neutrophils (%) (Auto) 93.2H, Lymphocytes (%) (Auto) 3.7L, Monocytes (%) (Auto) 2.5, Eosinophils (%) (Auto) 0.0, Basophils (%) (Auto) 0.2, Neutrophils # (Auto) 11.9H, Lymphocytes # (Auto) 0.5L, Monocytes # (Auto) 0.3, Eosinophils # (Auto) 0.0, Basophils # (Auto) 0.0, Nucleated Red Blood Cells % (auto) 0.0, Anion Gap 12, Glomerular Filtration Rate 13.4L, Lactic Acid Level 4.9*H, Calcium Level 9.3, Total Bilirubin 1.0, Direct Bilirubin 0.4H, Aspartate Amino Transf (AST/SGOT) 62H, Alanine Aminotransferase (ALT/SGPT) 37, Alkaline Phosphatase 112, Total Creatine Kinase 148, Creatine Kinase MB 3.2, Creatine Kinase MB Relative Index 2.16, Troponin I < 0.02, Total Protein 7.3, A lbumin 3.7, Albumin/Globulin Ratio 1.0L, Thyroid Stimulating Hormone (TSH) 5.140H, Salicylates Level 6.3, Acetaminophen Level < 2.0L, Ethyl Alcohol Level < 0.003 12/03/19 22:30: Urine Color ROBBY, Urine Appearance HAZY, Urine pH 5.0, Urine Specific [place] 1.010, Urine Protein 2+H, Urine Glucose (UA) NEGATIVE, Urine Ketones TRACEH, Urine Blood 1+H, Urine Nitrite NEGATIVE, Urine Bilirubin NEGATIVE, Urine Urobilinogen 4.0H, Urine Leukocyte Esterase NEGATIVE, Urine WBC (Auto) 5H, Urine RBC (Auto) 34H, Urine Hyaline Casts (Auto) 12, Urine Bacteria (Auto) 1+H, Urine Squamous Epithelial Cells 0, Urine Mucus (Auto) SMALL, Urine Sperm (Auto) , Urine Opiates Screen POSITIVEH, Urine Methadone Screen NEGATIVE, Urine Barbiturates Screen NEGATIVE, Urine Phencyclidine Screen NEGATIVE, Urine Amphetamines Screen NEGATIVE, Urine Benzodiazepines Screen NEGATIVE, Urine Cocaine Metabolite Screen NEGATIVE, Urine Cannabinoids Screen NEGATIVE 12/04/19 00:20: Lactic Acid Followup at 4 Hours 2.0 CBC/BMP Laboratory Tests 12/03/19 19:38 Microbiology Microbiology 12/04/19 Blood Culture, Received Pending 12/04/19 Blood Culture, Received Pending Assessment/Plan 69 yo W with a history of severe migraines, depression, anxiety, significant alcohol intake with last drink today at 11am? though she reports a couple of drinks daily, chronic back pain and insomnia who was brought into the ED after being found down in the bathroom after reportedly having fallen from feeling weak and shaky and hit her head, and found to have severe sepsis thus far with evidence of a UTI, suspicion of at least a transient gastroenteritis as well as NORMA and dehydration in the setting of seemingly significant alcohol intake at baseline. Severe sepsis: AMS and weakness c/b fall with leukocytosis, tachycardia, +UA, lactic acidosis and hypotension -s/p 4L NS with good response -For now continue empiric vanc/cefepime, with MRSA PCR and pending BCx, UCx and GI panel. Will likely de-escalate to cover UTI. -f/u AM CBC, BMP, repeat lactate NORMA: likely prerenal in the setting of diarrhea, poor PO, infection -s/p aggressive rehydration -f/u AM BMP and if not improving to order urine lytes and renal US -strict I/Os -daily weights Diarrhea likely 2/2 gastroenteritis without abdominal pain with acute diarrhea and emesis -GI panel -s/p aggressive hydration -monitor abdominal examination and symptoms, may warrant abdominal imaging if persistent -on empiric antibiotics as above Significant alcohol intake: -empirically place on CIWA with symptom triggered ativan as needed -Thiamine, folate Sinus tachycardia: likely 2/2 ongoing sepsis, however given history of "wide complex tachycardia" in the field will place on telemetry -Telemetry -EKG was non ischemic with sinus tachycardia -TSH is elevated, will check free T4 Chronic back pain: -continue home pain medication Hypertension: -hod home hypertension meds Chronic migraines: -continue home meds Depression and Anxiety: -continue home meds DVT ppx: heparin SQ Diet: regular Dispo: PCU Plan / VTE VTE Prophylaxis Ordered?: Yes KRYS BAUMAN MD Dec 04, 2019 03:12
[2019-12-04 04:00] VITALS: BP 126/59
[2019-12-04] MEDS ORDERED: VANCOMYCIN HCL 500 MG in D5W MINI-BAG PLUS 100 ML IV ONE (04:00)
--- NOTE | 2019-12-04 05:05 | PHACANCOPD ---
PHARMACY VANCOMYCIN DOSING Pt Demographics Demographics Patient Age:69 , Weight:61.300 , Gender: female Adjusted Body Weight Date: 12/04/19, Adjusted Body Weight: [61.3] Kg(actual wt) Vancomycin Vancomycin indication: sepsis empiric tx-unknown source Vancomycin Target Ranges: 15-20 mcg/ml Vancomycin Load Y/N: Yes Load Dose Date Time Vancomycin Load Dose: 1500mg Date: 12/03 Time:4:00 Vancomycin Dose Date: 12/04/19. Current Vancomycin Dose: [intermittent] Intermittent Dosing?: Yes Labs Micro Microbiology 12/04/19 Blood Culture, Received Pending 12/04/19 Blood Culture, Received Pending Creatinine Clearance Date:12/04/19. Creatinine Clearance: [14.5]. Assessment and Plan Maintaining Current Dose?: Yes Reason for dose change: No Dose Change Pharmacist Note Pharmacist Note Date: 12/04/19. Pharmacist note:69 YOF admitted for empiric treatment of infection(unknown source).allergy:latex,HT:65",WT:61.3kg,SCR:3.6,CRCL= 14.5.MRSA PCR screen is pending. Regimen includes Cefepime 1 gram IV [id number] and Pharmacy dosed Vancomycin. Vancmycin 1500mg LD administered 12/03 from 3:00-5:00, then will begin intermittent dosing protocol. Vanco trough is scheduled for 12/04@5:00. Will continue to follow [facility] Dec 04, 2019 05:05
[2019-12-04 06:00] VITALS: BP 127/70
[2019-12-04 08:00] VITALS: BP 140/63
[2019-12-04 08:12] LABS: HEMATOCRIT 27.1 % (36.0-47.0); MEAN CORPUSCULAR HEMOGLOBIN 28.9 pg (27.0-33.0); MEAN CORPUSCULAR HGB CONC 33.2 g/dl (32.0-36.5); MEAN CORPUSCULAR VOLUME 87.1 fl (80.0-96.0); PLATELET COUNT, AUTOMATED 157 10^3/uL (150-450); RED BLOOD COUNT 3.11 10^6/uL (4.00-5.40); WHITE BLOOD COUNT 9.9 10^3/uL (4.0-10.0)
[2019-12-04 08:35] LABS: CALCIUM LEVEL 7.8 MG/DL (8.8-10.2); CREATININE FOR GFR 2.17 MG/DL (0.55-1.30); MAGNESIUM LEVEL 1.5 MG/DL (1.8-2.4); POTASSIUM SERUM 4.5 MEQ/L (3.5-5.1)
[2019-12-04] MEDS ORDERED: MULTIVITAMINS/MINERALS THERAP 1 TAB PO SCH (09:00)
[2019-12-04] MEDS ORDERED: THIAMINE 100 MG TAB PO SCH (09:00)
[2019-12-04] MEDS ORDERED: LORazepam 2 MG/ML VIAL IV PRN (09:00)
[2019-12-04] MEDS ORDERED: HEPARIN SOD (PORCINE) 5000UNITS/ML VIAL (J1644 PER 1000UNITS) SC SCH (09:00)
[2019-12-04] MEDS ORDERED: FOLIC ACID 1 MG TAB PO SCH (09:00)
--- NOTE | 2019-12-04 09:09 | REP ---
Portable chest x-ray: Single view. History: Altered mental status. Comparison portable chest x-ray: December 03, 2019. Findings: There are surgical clips in right upper quadrant of the abdomen. Monitoring electrodes are seen. The heart is not enlarged. Lungs are symmetrically aerated and free of infiltrate. The pleural angles are sharp. Pulmonary vasculature is not increased. There are mild degenerative changes in the shoulders and in the thoracic spine. Impression: No active disease seen. Electronically Signed by Lyndon Calloway MD 12/04/2019 09:01 A
[2019-12-04] MEDS ORDERED: flumazeniL 0.5 MG/5 ML VIAL IV STA (10:33)
[2019-12-04] MEDS ORDERED: NS 1,000 ML IV SCH (11:00)
[2019-12-04] MEDS ORDERED: MAG SULF 1GM/100ML (MAG RUN) 1 GM in IV 1 EA IV ONE (12:00)
[2019-12-04] MEDS ORDERED: MULTIVITAMIN -ADULT INJECTION 10 ML, THIAMINE INJection 100 MG, FOLIC ACID 1 MG in NS 1... IV SCH (12:00)
[2019-12-04] MEDS ORDERED: zolPIDEM TARTRATE 5 MG TAB PO SCH (21:00)
[2019-12-06] MEDS ORDERED: MEROPENEM 1GM IN NACL 0.9% 50ML IVBAG (J2185 PER 100MG) ONE (01:30)
[2019-12-06] MEDS ORDERED: HYDROMORPHONE HCL 0.5 MG/ 0.5 ML SYRINGE (J1170 PER 1) ONE ×3 (05:31→20:42)
[2019-12-06] MEDS ORDERED: FUROSEMIDE 20MG/2ML VIAL (J1940) As Ordered ONE ×2 (10:14→16:51)
[2019-12-06] MEDS ORDERED: FUROSEMIDE 20MG/2ML VIAL (J1940) ONE ×2 (10:14→16:51)
[2019-12-06] MEDS ORDERED: ENOXAPARIN 30MG/0.3ML SYRINGE (J1650 PER 10MG) As Ordered ONE (10:14)
[2019-12-06] MEDS ORDERED: THIAMINE 200MG/2ML VIAL (J3411 PER 100MG) As Ordered ONE (10:14)
[2019-12-06] MEDS ORDERED: VANCOMYCIN 1000MG/20ML VIAL ONE ×2 (12:03→16:51)
[2019-12-06] MEDS ORDERED: FAT EMULSION 20% 500ML ONE (13:00)
[2019-12-06] MEDS ORDERED: CLINIMIX E ONE (13:00)
[2019-12-06] MEDS ORDERED: APPROPRIATE DILUENT As Ordered ONE (13:18)
[2019-12-06] MEDS ORDERED: MEROPENEM 1GM IN NACL 0.9% 50ML IVBAG (J2185 PER 100MG) As Ordered ONE (13:18)
[2019-12-06] MEDS ORDERED: HYDROMORPHONE HCL 0.5 MG/ 0.5 ML SYRINGE (J1170 PER 1) As Ordered ONE ×2 (14:11→20:42)
[2019-12-06] MEDS ORDERED: VIAL MATE ADAPTER XX ONE (16:52)
[2019-12-06] MEDS ORDERED: VANCOMYCIN 1000MG/20ML VIAL As Ordered ONE (16:52)
[2019-12-06] MEDS ORDERED: D5W 250ML BAG As Ordered ONE (16:52)
[2019-12-06] MEDS ORDERED: HumaLOG INSULIN (NovoLOG) PER UNIT As Ordered ONE (18:11)
[2019-12-06] MEDS ORDERED: HumaLOG INSULIN (NovoLOG) PER UNIT ONE (18:11)
[2019-12-06] MEDS ORDERED: LORazepam 2 MG/ML VIAL ONE (20:42)
[2019-12-06] MEDS ORDERED: LORazepam 2 MG/ML VIAL As Ordered ONE (20:43)
[2019-12-07] MEDS ORDERED: HumaLOG INSULIN (NovoLOG) PER UNIT As Ordered ONE ×5 (00:05→23:30)
[2019-12-07] MEDS ORDERED: MEROPENEM 1GM IN NACL 0.9% 50ML IVBAG (J2185 PER 100MG) ONE ×3 (01:52→23:03)
[2019-12-07] MEDS ORDERED: HYDROMORPHONE HCL 0.5 MG/ 0.5 ML SYRINGE (J1170 PER 1) ONE ×3 (01:52→12:55)
[2019-12-07] MEDS ORDERED: MEROPENEM 1GM IN NACL 0.9% 50ML IVBAG (J2185 PER 100MG) As Ordered ONE ×3 (01:52→23:03)
[2019-12-07] MEDS ORDERED: APPROPRIATE DILUENT As Ordered ONE ×2 (01:52→13:50)
[2019-12-07] MEDS ORDERED: HYDROMORPHONE HCL 0.5 MG/ 0.5 ML SYRINGE (J1170 PER 1) As Ordered ONE ×3 (01:56→12:55)
[2019-12-07] MEDS ORDERED: HumaLOG INSULIN (NovoLOG) PER UNIT ONE ×5 (06:31→23:03)
[2019-12-07] MEDS ORDERED: FUROSEMIDE 20MG/2ML VIAL (J1940) As Ordered ONE (09:19)
[2019-12-07] MEDS ORDERED: ENOXAPARIN 30MG/0.3ML SYRINGE (J1650 PER 10MG) ONE (09:19)
[2019-12-07] MEDS ORDERED: MAGNESIUM SULFATE 1GM/100ML D5W BAG (10MG/ML) ONE (09:19)
[2019-12-07] MEDS ORDERED: FUROSEMIDE 20MG/2ML VIAL (J1940) ONE (09:19)
[2019-12-07] MEDS ORDERED: ENOXAPARIN 30MG/0.3ML SYRINGE (J1650 PER 10MG) As Ordered ONE (09:20)
[2019-12-07] MEDS ORDERED: MAGNESIUM SULFATE 1GM/100ML D5W BAG (10MG/ML) As Ordered ONE (09:52)
[2019-12-07] MEDS ORDERED: POTASSIUM CHLORIDE 10 MEQ SR TABLET ONE (09:53)
[2019-12-07] MEDS ORDERED: POTASSIUM CHLORIDE 10 MEQ SR TABLET As Ordered ONE ×2 (09:53→09:59)
[2019-12-07] MEDS ORDERED: VANCOMYCIN 1000MG/20ML VIAL ONE (11:36)
[2019-12-07] MEDS ORDERED: D5W 250ML BAG As Ordered ONE (11:36)
[2019-12-07] MEDS ORDERED: VIAL MATE ADAPTER XX ONE (11:36)
[2019-12-07] MEDS ORDERED: VANCOMYCIN 1000MG/20ML VIAL As Ordered ONE (11:36)
[2019-12-07] MEDS ORDERED: FAT EMULSION 20% 500ML ONE (13:00)
[2019-12-07] MEDS ORDERED: oxyCODONE 5MG TAB As Ordered ONE ×2 (17:23→23:06)
[2019-12-07] MEDS ORDERED: oxyCODONE 5MG TAB ONE ×2 (17:25→23:03)
[2019-12-07] MEDS ORDERED: LACTOBACILLUS ACIDOPHILUS CAP (BACID) ONE ×2 (17:25→23:03)
[2019-12-07] MEDS ORDERED: LACTOBACILLUS ACIDOPHILUS CAP (BACID) As Ordered ONE ×2 (17:25→23:06)
[2019-12-07] MEDS ORDERED: HYDROmorphone HCL 2 MG/ML 1ML VIAL (J1170) As Ordered ONE (20:22)
[2019-12-07] MEDS ORDERED: HYDROmorphone HCL 2 MG/ML 1ML VIAL (J1170) ONE (20:22)
[2019-12-07] MEDS ORDERED: SENNA 8.6 MG TAB (SENOKOT) ONE (23:03)
[2019-12-07] MEDS ORDERED: SENNA 8.6 MG TAB (SENOKOT) As Ordered ONE (23:06)
[2019-12-08] MEDS ORDERED: oxyCODONE 5MG TAB ONE ×4 (01:16→09:42)
[2019-12-08] MEDS ORDERED: HYDROmorphone HCL 2 MG/ML 1ML VIAL (J1170) As Ordered ONE (03:11)
[2019-12-08] MEDS ORDERED: LACTOBACILLUS ACIDOPHILUS CAP (BACID) ONE ×4 (03:11→09:42)
[2019-12-08] MEDS ORDERED: HYDROmorphone HCL 2 MG/ML 1ML VIAL (J1170) ONE (03:11)
[2019-12-08] MEDS ORDERED: metroNIDAZOLE (FLAGYL) 500MG TABLET ONE ×2 (03:11→05:05)
[2019-12-08] MEDS ORDERED: VANCOMYCIN 1000MG/20ML VIAL ONE (03:11)
[2019-12-08] MEDS ORDERED: MEROPENEM 1GM IN NACL 0.9% 50ML IVBAG (J2185 PER 100MG) ONE (03:11)
[2019-12-08] MEDS ORDERED: HYDROMORPHONE HCL 0.5 MG/ 0.5 ML SYRINGE (J1170 PER 1) ONE ×2 (05:05→09:42)
[2019-12-08] MEDS ORDERED: CIPROFLOXACIN 500MG TABLET ONE (05:05)
[2019-12-08] MEDS ORDERED: MEROPENEM 1GM IN NACL 0.9% 50ML IVBAG (J2185 PER 100MG) As Ordered ONE (05:49)
[2019-12-08] MEDS ORDERED: VANCOMYCIN 1000MG/20ML VIAL As Ordered ONE (05:50)
[2019-12-08] MEDS ORDERED: MULTIVITAMINS/MINERALS THERAP 1 TAB ONE (09:29)
[2019-12-08] MEDS ORDERED: zolPIDEM TARTRATE 5 MG TAB ONE (09:29)
[2019-12-08] MEDS ORDERED: AMITRIPTYLINE 50 MG TAB ONE (09:29)
[2019-12-08] MEDS ORDERED: SENOKOT S TAB ONE ×2 (09:29→09:42)
[2019-12-08] MEDS ORDERED: MULTIVITAMINS/MINERALS THERAP 1 TAB As Ordered ONE (09:42)
[2019-12-08] MEDS ORDERED: ENOXAPARIN 30MG/0.3ML SYRINGE (J1650 PER 10MG) ONE (09:42)
[2019-12-08] MEDS ORDERED: FUROSEMIDE 20 MG TAB ONE (09:42)
[2019-12-08] MEDS ORDERED: SENOKOT S TAB As Ordered ONE ×2 (09:42→21:29)
[2019-12-08] MEDS ORDERED: FOLIC ACID 1 MG TAB ONE (09:42)
[2019-12-08] MEDS ORDERED: THIAMINE 100 MG TAB ONE (09:42)
[2019-12-08] MEDS ORDERED: LACTOBACILLUS ACIDOPHILUS CAP (BACID) As Ordered ONE ×4 (09:42→21:29)
[2019-12-08] MEDS ORDERED: THIAMINE 100 MG TAB As Ordered ONE (09:42)
[2019-12-08] MEDS ORDERED: FOLIC ACID 1 MG TAB As Ordered ONE (09:43)
[2019-12-08] MEDS ORDERED: FUROSEMIDE 20 MG TAB As Ordered ONE (09:43)
[2019-12-08] MEDS ORDERED: ENOXAPARIN 30MG/0.3ML SYRINGE (J1650 PER 10MG) As Ordered ONE (09:44)
[2019-12-08] MEDS ORDERED: oxyCODONE 5MG TAB As Ordered ONE ×4 (09:48→21:29)
[2019-12-08] MEDS ORDERED: HYDROMORPHONE HCL 0.5 MG/ 0.5 ML SYRINGE (J1170 PER 1) As Ordered ONE ×2 (13:06→18:04)
[2019-12-08] MEDS ORDERED: metroNIDAZOLE (FLAGYL) 500MG TABLET As Ordered ONE ×2 (14:47→21:28)
[2019-12-08] MEDS ORDERED: CIPROFLOXACIN 500MG TABLET As Ordered ONE (17:06)
[2019-12-08] MEDS ORDERED: zolPIDEM TARTRATE 5 MG TAB As Ordered ONE (21:30)
[2019-12-08] MEDS ORDERED: AMITRIPTYLINE 50 MG TAB As Ordered ONE (21:30)
[2019-12-09] MEDS ORDERED: ACETAMINOPHEN TAB 650MG DOSE (2X325MG) As Ordered ONE ×2 (03:12→23:23)
[2019-12-09] MEDS ORDERED: CIPROFLOXACIN 500MG TABLET As Ordered ONE ×3 (06:44→17:05)
[2019-12-09] MEDS ORDERED: metroNIDAZOLE (FLAGYL) 500MG TABLET As Ordered ONE ×3 (06:44→20:17)
[2019-12-09] MEDS ORDERED: ENOXAPARIN 30MG/0.3ML SYRINGE (J1650 PER 10MG) As Ordered ONE (08:28)
[2019-12-09] MEDS ORDERED: oxyCODONE 5MG TAB As Ordered ONE ×4 (08:29→20:18)
[2019-12-09] MEDS ORDERED: LACTOBACILLUS ACIDOPHILUS CAP (BACID) As Ordered ONE ×4 (08:29→20:19)
[2019-12-09] MEDS ORDERED: MULTIVITAMINS/MINERALS THERAP 1 TAB As Ordered ONE (08:29)
[2019-12-09] MEDS ORDERED: FUROSEMIDE 20 MG TAB As Ordered ONE (08:30)
[2019-12-09] MEDS ORDERED: FOLIC ACID 1 MG TAB As Ordered ONE (08:30)
[2019-12-09] MEDS ORDERED: THIAMINE 100 MG TAB As Ordered ONE (08:30)
[2019-12-09] MEDS ORDERED: HYDROMORPHONE HCL 0.5 MG/ 0.5 ML SYRINGE (J1170 PER 1) As Ordered ONE (11:02)
[2019-12-09] MEDS ORDERED: SENOKOT S TAB As Ordered ONE (20:19)
[2019-12-09] MEDS ORDERED: AMITRIPTYLINE 50 MG TAB As Ordered ONE (20:39)
[2019-12-09] MEDS ORDERED: zolPIDEM TARTRATE 5 MG TAB As Ordered ONE (20:40)
[2019-12-10] MEDS ORDERED: CIPROFLOXACIN 500MG TABLET As Ordered ONE (05:29)
[2019-12-10] MEDS ORDERED: metroNIDAZOLE (FLAGYL) 500MG TABLET As Ordered ONE (05:29)
[2019-12-10] MEDS ORDERED: MULTIVITAMINS/MINERALS THERAP 1 TAB As Ordered ONE (09:31)
[2019-12-10] MEDS ORDERED: ENOXAPARIN 30MG/0.3ML SYRINGE (J1650 PER 10MG) As Ordered ONE (09:31)
[2019-12-10] MEDS ORDERED: LACTOBACILLUS ACIDOPHILUS CAP (BACID) As Ordered ONE (09:32)
[2019-12-10] MEDS ORDERED: SENOKOT S TAB As Ordered ONE (09:32)
[2019-12-10] MEDS ORDERED: FOLIC ACID 1 MG TAB As Ordered ONE (09:32)
[2019-12-10] MEDS ORDERED: THIAMINE 100 MG TAB As Ordered ONE (09:32)
[2019-12-10] MEDS ORDERED: FUROSEMIDE 20 MG TAB As Ordered ONE (09:37)
[2019-12-10] MEDS ORDERED: oxyCODONE 5MG TAB As Ordered ONE (09:37)
[2019-12-14] MEDS ORDERED: DIGOXIN INJ 0.5 MG/2 ML AMP (J1160) As Ordered ONE (23:53)
[2019-12-14] MEDS ORDERED: LORazepam 2 MG/ML VIAL As Ordered ONE (23:56)
[2019-12-15] MEDS ORDERED: LORazepam 2 MG/ML VIAL As Ordered ONE (00:01)
[2020-01-14 12:33] LABS: HEMATOCRIT 29.3 % (36.0-47.0); HEMOGLOBIN 9.9 g/dl (12.0-15.5); MEAN CORPUSCULAR HEMOGLOBIN 28.9 pg (27.0-33.0); MEAN CORPUSCULAR HGB CONC 33.8 g/dl (32.0-36.5); MEAN CORPUSCULAR VOLUME 85.4 fl (80.0-96.0); PLATELET COUNT, AUTOMATED 124 10^3/uL (150-450); RED BLOOD COUNT 3.43 10^6/uL (4.00-5.40); WHITE BLOOD COUNT 6.8 10^3/uL (4.0-10.0)
[2020-01-14 12:38] LABS: PLATELET COUNT, AUTOMATED 155 10^3/uL (150-450)
[2020-01-14 12:44] LABS: INR 0.97; PARTIAL THROMBOPLASTIN TIME 41.5 SECONDS (25.0-38.4); PROTHROMBIN TIME 13.1 SECONDS (11.8-14.0)
== END 2019-12-10 11:30 | disposition home or self-care (01) | DRG 871 ==
LOC: M ED 17:59 → M ED INP 22:07 → ENRESERV 22:35 → M PCU 12-04 00:09
PROVIDERS: ADMIT Internal Medicine; ATTEND General Practice
DX: A41.9 Sepsis, unspecified organism (principal); R65.21 Severe sepsis with septic shock; G93.41 Metabolic encephalopathy; K57.92 Diverticulitis of intestine, part unspecified, without perforation or abscess without bleeding; I11.0 Hypertensive heart disease with heart failure; D64.9 Anemia, unspecified; M54.5 Low back pain; F10.10 Alcohol abuse, uncomplicated; I27.20 Pulmonary hypertension, unspecified; E83.42 Hypomagnesemia; E87.6 Hypokalemia; F17.200 Nicotine dependence, unspecified, uncomplicated

== ENCOUNTER → 2019-12-19 | Outpatient (REF) | payer MEDICARE ==
[~2019-12-19] MED LIST changes: +DIVA250T67 PO; +DULO1CAP6 PO; +FOLI1TAB11 PO; +HYDR12.55 PO; +LEVO25TA5 PO; +LISI-542 PO; +OXYC10TA12 PO; +SENN18TA PO; +THIA100TA PO
== END ==
LOC: M LAB REF 15:57
PROVIDERS: ATTEND Internal Medicine
DX: A41.9 Sepsis, unspecified organism (principal)

== ENCOUNTER 2020-01-27 18:25 | Inpatient (IN) | payer MEDICARE ==
[~2020-01-27] VITALS: Ht 160 cm; Wt 47.7 kg
[~2020-01-27 18:25] MED LIST changes: -FOLI1TAB11 PO; -LEVO25TA5 PO; -SENN18TA PO; -THIA100TA PO
[2020-01-27] MEDS ORDERED: NALOXONE INJ 0.4MG/1ML VIAL (J2310 PER 1MG) IV PRN (19:00)
[2020-01-27] MEDS ORDERED: NS 1,000 ML IV ONE (19:00)
--- NOTE | 2020-01-27 19:47 | REPVR ---
PROCEDURE INFORMATION: Exam: XR Chest, 1 View Exam date and time: 01/27/2020 7:18 PM Age: 69 years old Clinical indication: Other: AMS; Additional info: Altered mental status TECHNIQUE: Imaging protocol: XR of the chest Views: 1 view. COMPARISON: CT Chest without contrast 12/04/2019 3:23 PM FINDINGS: Lungs: Degree of lung inflation is normal. No evidence of pulmonary edema. No focal consolidation or parenchymal lung mass. Pleural space: No pleural effusion or pneumothorax. Heart/Mediastinum: Cardiac silhouette appears normal. No adenopathy or hilar mass. Bones/joints: Osseous structures show no concerning abnormality. IMPRESSION: No acute or focal cardiopulmonary process. Electronically signed by: José Miguel Dumont On 01/27/2020 19:47:08 PM
[2020-01-27 20:27] LABS: BASO % 0.3 % (0.0-1.0); HEMATOCRIT 24.4 % (36.0-47.0); HEMOGLOBIN 7.7 g/dl (12.0-15.5); LYMPH # 1.1 10^3/uL (1.5-5.0); MEAN CORPUSCULAR HEMOGLOBIN 28.7 pg (27.0-33.0); MEAN CORPUSCULAR HGB CONC 31.6 g/dl (32.0-36.5); MONO # 0.6 10^3/uL (0.0-0.8); MONO % 9.4 % (0.0-5.0); NEUTROPHILS # 4.7 10^3/uL (1.5-8.5); NEUTROPHILS % 72.7 % (36.0-66.0); PLATELET COUNT, AUTOMATED 235 10^3/uL (150-450); RED BLOOD COUNT 2.68 10^6/uL (4.00-5.40); WHITE BLOOD COUNT 6.5 10^3/uL (4.0-10.0)
[2020-01-27 20:34] LABS: VENOUS BASE EXCESS -5.3 (-2.0-2.0); VENOUS HCO3 22.4 MEQ/L (23.0-27.0); VENOUS O2 SATURATION 75.4 % (60.0-80.0); VENOUS PARTIAL PRESSURE CO2 56.4 mmHg (38.0-50.0); VENOUS PARTIAL PRESSURE O2 51.2 mmHg (30.0-50.0); VENOUS PH 7.217 UNITS (7.330-7.430); VENOUS STANDARD HCO3 19.8 MEQ/L; VENOUS TOTAL CO2 24.1 MEQ/L (24.0-28.0)
--- NOTE | 2020-01-27 20:35 | ECGEPIP ---
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
[2020-01-27] MEDS ORDERED: cefTRIAXone SOD 2 GM in D5W MINI-BAG PLUS 50 ML IV ONE (20:45)
[2020-01-27] MEDS ORDERED: NS 500 ML IV ONE ×2 (20:45→22:00)
[2020-01-27 21:00] LABS: ACETAMINOPHEN LEVEL 2.1 UG/ML (10.0-30.0); ALBUMIN 2.1 GM/DL (3.2-5.2); ALT/SGPT 28 U/L (12-78); BILIRUBIN,DIRECT 0.2 MG/DL (0.0-0.2); BILIRUBIN,TOTAL 0.3 MG/DL (0.2-1.0); CK-MB VALUE MASS 2.9 NG/ML (<3.6); CPK CREATINE PHOSPHOKINASE 100 U/L (26-192); ETHYL ALCOHOL (ETHANOL) < 0.003 % (0.000-0.010); SALICYLATE LEVEL < 1.7 MG/DL (5.0-30.0); TOTAL PROTEIN 5.3 GM/DL (6.4-8.2); TROPONIN I < 0.02 NG/ML (< 0.10)
[2020-01-27 22:01] LABS: AMPHETAMINES LEVEL URINE NEGATIVE (NEGATIVE); BARBITURATES URINE NEGATIVE (NEGATIVE); BENZODIAZEPINES URINE NEGATIVE (NEGATIVE); CANNABINOIDS URINE NEGATIVE (NEGATIVE); COCAINE METABOLITE URINE NEGATIVE (NEGATIVE); METHADONE URINE NEGATIVE (NEGATIVE); OPIATES URINE POSITIVE (NEGATIVE); PHENCYCLIDINE URINE NEGATIVE (NEGATIVE)
[2020-01-27 22:08] LABS: OSMOLALITY SERUM 295 MOSM/KG (280-301)
--- NOTE | 2020-01-27 22:52 | REPVR ---
PROCEDURE INFORMATION: Exam: CT Head Without Contrast Exam date and time: 01/27/2020 10:46 PM Age: 69 years old Clinical indication: Altered mental status/memory loss TECHNIQUE: Imaging protocol: Computed tomography of the head without contrast. Radiation optimization: All CT scans at this facility use at least one of these dose optimization techniques: automated exposure control; mA and/or kV adjustment per patient size (includes targeted exams where dose is matched to clinical indication); or iterative reconstruction. COMPARISON: CT Head without contrast 12/03/2019 7:56 PM FINDINGS: Brain: No intracranial mass, focal mass effect or midline shift. No acute intracranial hemorrhage. Mild decreased attenuation in periventricular/centrum semiovale white matter. No focal effacement of cortical sulci to indicate acute cortical infarct. Ventricles: Prominent ventricles and CSF spaces suggest parenchymal volume loss. Bones/joints: No calvarial fracture or destructive process. Paranasal sinuses: Visualized paranasal sinuses are unremarkable. Mastoid air cells: Mastoid air cells are normally aerated. Orbits: Visualized globes and orbits are unremarkable. Soft tissues: No focal extracranial soft tissue swelling. IMPRESSION: 1. No acute intracranial abnormality. 2. Atrophy and chronic microangiopathic change in supratentorial white matter. Electronically signed by: José Miguel Dumont On 01/27/2020 22:52:30 PM
[2020-01-27] MEDS ORDERED: SUMAtriptan SUCCINATE 6 MG/0.5 ML VIAL SC ONE (23:45)
[2020-01-28] VITALS (10 sets, daily range): BP systolic 97–124; BP diastolic 47–60
[2020-01-28] MEDS ORDERED: ACETAMINOPHEN TAB 650MG DOSE (2X325MG) PO PRN (00:30)
[2020-01-28] MEDS ORDERED: POTASSIUM CHLORIDE 10 MEQ SR TABLET PO ONE (00:30)
[2020-01-28] MEDS ORDERED: LORazepam 2 MG TAB PO PRN (02:15)
--- NOTE | 2020-01-28 02:20 | HPEPDOC ---
[facility] Medical History & Physical Date of Admission Jan 28, 2020 Date of Service: Jan 28, 2020 Attending Physician: KRYS BAUMAN MD History and Physical CHIEF COMPLAINT: Weakness History of presenting illness: 69 yo W with a history of severe migraines, depression, anxiety, alcohol use d isorder, chronic back pain and insomnia who was brought into the ED reporting that she has been feeling unwell and in bed for 4 days and her boyfriend convinced her to the come to the ED after he noted that she was increasingly confused. In the ED, she reports a history of falls, a recent fall without hitting her head or LOC when she tripped and her walker malfunctioned, some ongoing diarrhea that may be chronic? vs. recently worse?, without abdominal pain, nausea, vomiting, fever, chills. She did report that her boyfriend was recently ill with a cold but feels better now. She reports that her last drink was maybe a week ago, has poor PO and some has generalized pain without chest pain, shortness of breath, peripheral edema, leg swelling or palpitations. Upon ED arrival, she was hypotensive to 89/55, borderline hypothermic to 95.7 and reportedly somnolent that the ED physician was considering narcan given history of chronic opioid therapy for chronic pain but subsequently became more alert after hydration. While in the ED, she was given empiric ceftriaxone and 2L NS with improvement of blood pressure. Initial workup was notable for WBC 6.5, acute on chronic anemia to hgb 7.7, negative ED guaiac, Na 142, K 3.2, elevated Cr to 1 from baseline 0.5, UA with 6WBCs and 11 hyaline casts without bacteria, leukocyte esterase or nitrites, EKG that was stable from prior with NSR with a k nown LBBB, negative troponin and tox screen that was positive for opiates. She had CT head that was negative for acute intracranial abnormalities and CXR without acute pathology. She is now being admitted for NORMA, dehydration, possible sepsis and failure to thrive. Past Medical History: Severe migraines Depression Anxiety Chronic back pain Insomnia Alcohol use disorder Frequent falls Surgical History: History of back surgery Hysterectomy Cholecystectomy liposuction L ankle surgery Family History: Mother- from cancer Father- from an [place] Social History: Smoker: Denies Alcohol: history of heavy daily alcohol use Drugs: denies Recent Travel: Denies Recent sick contacts: Live in boyfriend recently had a cold Psychosocial History: Anxiety, Depression Review of Systems Constitutional: Reports: Malaise, Weakness; denies fever, chills Eyes: Denies: Pain, Vision change ENT: Denies: Head Aches, Ear Pain, Dysphagia Skin: Denies: Rash, Lesions, Breakdown Pulmonary: Denies: Dyspnea, Cough Cardiovascular: Denies: Chest Pain, Palpitations, Orthopnea Gastrointestinal: Reports a history of diarrhea, initially reportedly within the last few days but later reported that she has had diarrhea for a while now requiring her to wear adult diapers without any noted emesis, melena or hematochezia Genitourinary: Denies: Dysuria, Frequency, Incontinence, Retention Hematologic: Denies: Bruising, Bleeding Excessively Endocrine: Denies: Polydipsia, Polyphagia, Polyuria, Heat Intolerance, Cold Intolerance, Other Endocrine Sx Musculoskeletal: Has a long standing history of lumbar back pain Neurological: Reports feeling weak. Was reportedly confused at home and notably somnolent on initial ED evaluation. Psych: Feels depressed. Tired of feeling ill. Physical Examination: General Exam: Chronically ill appearing, thin, frail Eye Exam: PERRLA, EOMI, anicteric ENT Exam: very dry MM, poor dentition with sparse teeth Neck Exam: supple, no JVD or palpable thyromegaly Chest Exam: Clear to auscultation, no crackles, rhonchi or wheezing Heart Exam: Regular Rhythm, Normal S1, Normal S2, has a 2/6 holosystolic murmur Abdomen Exam: Normal bowel sounds, soft, healed surgical scars, NTND, no noted hernias or hepatosplenomegaly Extremity Exam: no LE edema, WWP Skin Exam: dry skin, with skin tenting, no noted breakdown Neuro Exam: Normal Speech, Strength at 5/5 X4 ext, Cranial Nerves 3-12 NL Psych Exam: Mental status NL, Oriented x self and place but not time or date Laboratory Data: summarized above Imaging: summarized above Assessment/Plan 69 yo W with a history of severe migraines, depression, anxiety, alcohol use disorder, chronic back pain and insomnia who was brought to the ED for progressive weakness, AMS and found to have +SIRS c/f sepsis, NORMA, dehydration and failure to thrive at home. +SIRS c/f sepsis with unclear source at this time: hypothermia, AMS, hypotension and weakness c/b recent fall -s/p 2L NS with good response, however BPs remain soft and is very dry on examination, will continue fluids at 150cc/hr and may require more bolusing -For now continue empiric ceftriaxone with pending BCx, UCx and GI panel. -f/u AM CBC, BMP, Mag -CXR without acute pathology and UA technically bland NORMA: likely prerenal in the setting of diarrhea, poor PO, possible infection and possibly progressing to ATN -s/p 2L NS, continue NS at 150cc/hr -oliguric at present, c/f progression to ATN -DC ED placed bennett, and aggressively hydrate -strict I/Os -f/u AM BMP and if not improving to order urine lytes and renal US -daily weights -hold home HCTZ and lisinopril in the setting of doubling of her Cr and dehydration Diarrhea possibly 2/2 gastroenteritis without abdominal pain with ongoing diarrhea -GI panel -continue hydration -monitor abdominal examination, may warrant abdominal imaging if exam changes Metabolic encephalopathy: Likely 2/2 possible infection vs. dehydration vs. iatrogenic from her home narcotic medications -hold home oxy and Ambien for now, with plan to resume when her mentation improves -continue hydration -continue empiric ceftriaxone for now History of alcohol use disorder: -empirically place on CIWA with symptom triggered ativan as needed -Thiamine, folate Elevated TSH: appears to be chronic -will check free T4 Chronic back pain: -Plan is to continue home pain medication of xoy 10 QIDPRN once mentation im proves, will hold it tonight given the recent AMS and will defer to day team to restart as her mentation improves. Hypertension: -hod home hypertension meds Chronic migraines: -continue home meds Depression and Anxiety: -continue home meds Acute on chronic anemia: w/ history of MARANDA -2u pRBCs, with goal Hgb >8 -negative guaiac in the ED with no recent history of noted bleeding -will check Fe, ferritin, TIBC, retic Malnutrition with FTT: -nutrition consult -PT/OT -PFS consult, worried that her boyfriend can longer take care of her any longer DVT ppx: TEDs and sequentials Diet: regular Dispo: medsurg Code status: DNR/DNI, confirmed with patient, and expressed understanding Vital Signs Vital Signs Date Time Temp Pulse Resp B/P (MAP) Pulse Ox O2 Delivery O2 Flow Rate FiO2 01/27/20 22:25 68 100 01/27/20 22:15 112/57 (75) 01/27/20 22:10 16 01/27/20 18:46 Nasal Cannula 2.0 01/27/20 18:38 95.7 Laboratory Data Labs 24H Laboratory Tests 2 01/27/20 18:53: Immature Granulocyte % (Auto) 0.6, Neutrophils (%) (Auto) 72.7H, Lymphocytes (%) (Auto) 17.0L, Monocytes (%) (Auto) 9.4H, Eosinophils (%) (Auto) 0.0, Basophils (%) (Auto) 0.3, Neutrophils # (Auto) 4.7, Lymphocytes # (Auto) 1.1L, Monocytes # (Auto) 0.6, Eosinophils # (Auto) 0.0, Basophils # (Auto) 0.0, Nucleated Red Blood Cells % (auto) 0.0, Osmolality 295, Lactic Acid Level 0.7, Total Bilirubin 0.3, Direct Bilirubin 0.2, Aspartate Amino Transf (AST/SGOT) 39H, Alanine Aminotransferase (ALT/SGPT) 28, Alkaline Phosphatase 82, Total Creatine Kinase 100, Creatine Kinase MB 2.9, Creatine Kinase MB Relative Index 2.90, Troponin I < 0.02, Total Protein 5.3L, Albumin 2.1L, Albumin/Globulin Ratio 0.7L, Thyroid Stimulating Hormone (TSH) 5.070H, Salicylates Level < 1.7L, Acetaminophen Level 2.1L, Ethyl Alcohol Level < 0.003 01/27/20 19:50: Urine Color ROBBY, Urine Appearance HAZY, Urine pH 5.0, Urine Specific [place] 1.018, Urine Protein NEGATIVE, Urine Glucose (UA) NEGATIVE, Urine Ketones NEGATIVE, Urine Blood NEGATIVE, Urine Nitrite NEGATIVE, Urine Bilirubin NEGATI VE, Urine Urobilinogen 4.0H, Urine Leukocyte Esterase NEGATIVE, Urine WBC (Auto) 6H, Urine RBC (Auto) 1, Urine Hyaline Casts (Auto) 11, Urine Bacteria (Auto) NEGATIVE, Urine Squamous Epithelial Cells 1, Urine Mucus (Auto) SMALL, Urine Sperm (Auto) , Blood Gas Bicarbonate Standard 19.8, Venous Blood pH 7.217L, Venous Blood Partial Pressure CO2 56.4H, Venous Blood Partial Pressure O2 51.2H, Venous Blood Total Carbon Dioxide 24.1, Venous Blood HCO3 22.4L, Venous Blood Oxygen Saturation 75.4, Venous Blood Base Excess -5.3L, Urine Opiates Screen POSITIVEH, Urine Methadone Screen NEGATIVE, Urine Barbiturates Screen NEGATIVE, Urine Phencyclidine Screen NEGATIVE, Urine Amphetamines Screen NEGATIVE, Urine Benzodiazepines Screen NEGATIVE, Urine Cocaine Metabolite Screen NEGATIVE, Urine Cannabinoids Screen NEGATIVE CBC/BMP Laboratory Tests 01/27/20 18:53 Microbiology Microbiology 01/27/20 Blood Culture, Received Pending 01/27/20 Blood Culture, Received Pending Home Medications Scheduled Amitriptyline HCl (Amitriptyline HCl) 100 Mg Tab, 100 MG PO QHS Divalproex Sodium (Divalproex Sodium) 250 Mg Tablet.dr, 250 MG PO QHS Duloxetine Hcl (Duloxetine HCl) 60 Mg Capsule.dr, 60 MG PO BID Hydrochlorothiazide (Hydrochlorothiazide) 12.5 Mg Tablet, 12.5 MG PO DAILY Lisinopril (Lisinopril) 5 Mg Tablet, 5 MG PO DAILY Zolpidem Tartrate (Ambien) 5 Mg Tab, 5 MG PO QHS Scheduled PRN Oxycodone HCl (Oxycodone HCl) 10 Mg Tablet, 10 MG PO QID PRN for PAIN Allergies Coded Allergies: latex (Verified Allergy, Intermediate, RASH, 08/07/18) baclofen (Verified Adverse Reaction, Intermediate, LEG WEAKNESS, 08/07/18) hydrocodone (Verified Adverse Reaction, Intermediate, LEG WEAKNESS, 08/07/18) A-FIB/CHADSVASC A-FIB History Current/History of A-Fib/PAF?: No Current PO Anticoag Therapy: No Age/Risk Factor Scoring CHADSVASC: CHADSVASC Response (Comments) Value Age Risk Factor Age 65-74 years old 1 Gender Risk Factor Female 1 Hx of CHF No 0 Hx of HTN Yes 1 Hx of Stroke/TIA/or VTE No 0 Hx of Diabetes No 0 Hx of Vascular Disease No 0 Total 3 Treatment Treatment ordered: NONE Reason Anticoagulant not given: Not indicated/[id number] KRYS BAUMAN MD Jan 28, 2020 02:17
[2020-01-28] MEDS ORDERED: cefTRIAXone SOD 1GM VIAL (J0696 PER 250MG) IM SCH (02:30)
[2020-01-28] MEDS: DULoxetine 30 MG CAP (CYMBALTA) PO SCH ×6 (02:54→21:39)
[2020-01-28] MEDS: DIVALPROEX 250 MG TAB PO SCH ×2 (02:55→21:38)
[2020-01-28] MEDS: NS 1,000 ML IV SCH ×4 (02:55→22:27)
[2020-01-28] MEDS: AMITRIPTYLINE 50 MG TAB PO SCH ×2 (02:55→21:39)
[2020-01-28 05:04] LABS: PERCENT SATURATION 45.3 % (13.2-45.0)
--- NOTE | 2020-01-28 07:14 | IPNPDOC ---
Date Seen The patient was seen on 01/28/20. Progress Note SUBJECTIVE: patient was seen and examined at bedside. Doing well, no acute events overnight. Denies dizziness, lightheadedness. No CP. has not had diarrhea today. Declining PT. OBJECTIVE PHYSICAL EXAMINATION: VITAL SIGNS: Please see below. General: NAD, comfortable HEENT: PERRLA, EOMI, sclerae clear Neck: supple, normal ROM, no JVD Resp: lungs CTAB, no wheeze, no rales, no crackles CVS: RRR, normal S1, S2, no murmurs Abdo: soft, no masses, no hepatosplenomegaly, BS+, no rebound tenderness Extremities: no edema, pulses 2+ MSK: no joint deformities, normal ROM Neuro: no focal neuro deficits, moving all 4 extremities Psych: calm, cooperative, AAO x 3 LABORATORY DATA, IMAGING STUDIES, MICROBIOLOGY: Please see below. DVT prophylaxis ordered?: Y ASSESSMENT AND PLAN: 69 yo W with a history of severe migraines, depression, anxiety, alcohol use disorder, chronic back pain and insomnia who was brought to the ED for progressive weakness, AMS and found to have +SIRS c/f sepsis, NORMA, dehydration and failure to thrive at home. PROBLEMS: SIRS - admitted with hypothermia, AMS, hypotension, weakness - abx: empiric ceftriaxone - f/u BCx, Ucx, GI panel - CXR wnl - afebrile, no WBC - BP low, will give additional 1L NS bolus NORMA - s/p 2L bolus, NS at 150 - resolved Diarrhea - no repeat episodes - f/u GI panel Metabolic Encephalopathy - infection vs dehydration vs meds - improved, AAO x 3 this monring - on ceftriaxone, IVF ETOH use disorder - CIWA, ativan as needed Elevated TSH - TSH 5.0 - check Ft4 Chronic back pain - takes oxycodone 10 mg PO qid at home - BP soft, SBP 90s - will give oxycodone 5 mg q6h prn for now HTN - hold home meds Chronic migraines - continue home meds Depression and Anxiety: -continue home meds Acute on chronic anemia: w/ history of MARANDA - Hgb improved to 9.1 after 1 unit. Will hold 2nd unit - negative guaiac in the ED with no recent history of noted bleeding -will check Fe, ferritin, TIBC, retic Malnutrition with FTT: -nutrition consult -PT/OT -PFS consult, worried that her boyfriend can longer take care of her any longer DVT ppx: TEDs and sequentials Diet: regular Dispo: medsurg Code status: DNR/DNI, confirmed with patient, and expressed understanding VS, I&O, 24H, Jose Jbone Vital Signs/I&O Vital Signs Date Time Temp Pulse Resp B/P (MAP) Pulse Ox O2 Delivery O2 Flow Rate FiO2 01/28/20 06:23 97.4 75 16 97/51 96 01/28/20 06:00 Room Air 01/27/20 18:46 2.0 I&O- Last 24 Hours up to 6 AM 01/28/20 06:00 Intake Total 2820 ml Output Total 75 ml Balance 2745 ml Laboratory Data 24H LABS Laboratory Tests 2 01/27/20 18:53: Immature Granulocyte % (Auto) 0.6, Neutrophils (%) (Auto) 72.7H, Lymphocytes (%) (Auto) 17.0L, Monocytes (%) (Auto) 9.4H, Eosinophils (%) (Auto) 0.0, Basophils (%) (Auto) 0.3, Neutrophils # (Auto) 4.7, Lymphocytes # (Auto) 1.1L, Monocytes # (Auto) 0.6, Eosinophils # (Auto) 0.0, Basophils # (Auto) 0.0, Nucleated Red Blood Cells % (auto) 0.0, Osmolality 295, Lactic Acid Level 0.7, Total Bilirubin 0.3, Direct Bilirubin 0.2, Aspartate Amino Transf (AST/SGOT) 39H, Alanine Aminotransferase (ALT/SGPT) 28, Alkaline Phosphatase 82, Total Creatine Kinase 100, Creatine Kinase MB 2.9, Creatine Kinase MB Relative Index 2.90, Troponin I < 0.02, Total Protein 5.3L, Albumin 2.1L, Albumin/Globulin Ratio 0.7L, Thyroid Stimulating Hormone (TSH) 5.070H, Salicylates Level < 1.7L, Acetaminophen Level 2.1L, Ethyl Alcohol Level < 0.003 01/27/20 19:50: Urine Color ROBBY, Urine Appearance HAZY, Urine pH 5.0, Urine Specific [place] 1 .018, Urine Protein NEGATIVE, Urine Glucose (UA) NEGATIVE, Urine Ketones NEGATIVE, Urine Blood NEGATIVE, Urine Nitrite NEGATIVE, Urine Bilirubin NEGATIVE, Urine Urobilinogen 4.0H, Urine Leukocyte Esterase NEGATIVE, Urine WBC (Auto) 6H, Urine RBC (Auto) 1, Urine Hyaline Casts (Auto) 11, Urine Bacteria (Auto) NEGATIVE, Urine Squamous Epithelial Cells 1, Urine Mucus (Auto) SMALL, Urine Sperm (Auto) , Blood Gas Bicarbonate Standard 19.8, Venous Blood pH 7.217L, Venous Blood Partial Pressure CO2 56.4H, Venous Blood Partial Pressure O2 51.2H, Venous Blood Total Carbon Dioxide 24.1, Venous Blood HCO3 22.4L, Venous Blood Oxygen Saturation 75.4, Venous Blood Base Excess -5.3L, Urine Opiates Screen POSITIVEH, Urine Methadone Screen NEGATIVE, Urine Barbiturates Screen NEGATIVE, Urine Phencyclidine Screen NEGATIVE, Urine Amphetamines Screen NEGATIVE, Urine Benzodiazepines Screen NEGATIVE, Urine Cocaine Metabolite Screen NEGATIVE, Urine Cannabinoids Screen NEGATIVE 01/27/20 20:10: POC Glucose (Misc Panel) 99, POC Sodium (Misc Panel) 142, POC Potassium (Misc Panel) 3.2L, POC Chloride (Misc Panel) 107, POC Total CO2 (Misc Panel) 23.0, POC Blood Urea Nitrogen (Misc Panel 21, POC Ionized Calcium (Misc Panel) 5.0, POC Creatinine (Misc Panel) 1.0, POC Hematocrit (Misc Panel) 23.0L 01/27/20 22:25: POC Total CO2 (Misc Panel) 25.0, POC pH (Misc Panel) 7.296L, POC Base Excess (Misc Panel) -3.0L, POC Saturated Percent O2 (Misc) 99H, POC pO2 (Misc Panel) 161.0H, POC pCO2 (Misc Panel) 49.0H, POC HCO3 (Misc Panel) 23.9 01/28/20 01:01: Iron Level 53, Total Iron Binding Capacity 117L, Transferrin % Saturation 45.3H, Ferritin 367H CBC/BMP Laboratory Tests 01/27/20 18:53 Microbiology Microbiology 01/27/20 Blood Culture, Received Pending 01/27/20 Blood Culture, Received Pending NIRALI MELENDEZ MD Jan 28, 2020 07:14
[2020-01-28 08:06] LABS: BASO % 0.3 % (0.0-1.0); HEMATOCRIT 28.6 % (36.0-47.0); HEMOGLOBIN 9.1 g/dl (12.0-15.5); LYMPH # 1.3 10^3/uL (1.5-5.0); LYMPH % 19.3 % (24.0-44.0); MEAN CORPUSCULAR HEMOGLOBIN 29.2 pg (27.0-33.0); MEAN CORPUSCULAR HGB CONC 31.8 g/dl (32.0-36.5); MEAN CORPUSCULAR VOLUME 91.7 fl (80.0-96.0); MONO # 0.6 10^3/uL (0.0-0.8); NEUTROPHILS # 4.6 10^3/uL (1.5-8.5); NEUTROPHILS % 70.9 % (36.0-66.0); PLATELET COUNT, AUTOMATED 250 10^3/uL (150-450); RED BLOOD COUNT 3.12 10^6/uL (4.00-5.40); WHITE BLOOD COUNT 6.5 10^3/uL (4.0-10.0)
[2020-01-28 08:27] LABS: ALT/SGPT 26 U/L (12-78); BILIRUBIN,TOTAL 0.3 MG/DL (0.2-1.0); BLOOD UREA NITROGEN 16 MG/DL (7-18); CALCIUM LEVEL 8.2 MG/DL (8.8-10.2); CARBON DIOXIDE LEVEL 23 MEQ/L (21-32); CHLORIDE LEVEL 112 MEQ/L (98-107); CREATININE FOR GFR 0.83 MG/DL (0.55-1.30); GLOMERULAR FILTRATION RATE > 60.0 (>45); GLUCOSE, FASTING 108 MG/DL (70-100); MAGNESIUM LEVEL 1.7 MG/DL (1.8-2.4); POTASSIUM SERUM 4.6 MEQ/L (3.5-5.1); SODIUM LEVEL 143 MEQ/L (136-145); TOTAL PROTEIN 5.2 GM/DL (6.4-8.2)
[2020-01-28] MEDS ORDERED: lisinopriL 5 MG TAB PO SCH (09:00)
[2020-01-28] MEDS ORDERED: hydroCHLOROthiazide 12.5 MG CAPSULE PO SCH (09:00)
[2020-01-28 09:39] LABS: FOLATE 9.6 NG/ML (>5.4)
[2020-01-28] MEDS: FOLIC ACID 1 MG TAB PO SCH (10:13)
[2020-01-28] MEDS: MULTIVITAMINS/MINERALS THERAP 1 TAB PO SCH (10:13)
[2020-01-28] MEDS: THIAMINE 100 MG TAB PO SCH ×2 (10:14→21:38)
[2020-01-28] MEDS: cefTRIAXone SOD 1 GM in D5W MINI-BAG PLUS 50 ML IV SCH (10:14)
[2020-01-28] MEDS ORDERED: oxyCODONE 5MG TAB PO PRN (11:15)
[2020-01-28] MEDS ORDERED: SODIUM CHLORIDE 0.9% 1000ML IV ONE (11:30)
[2020-01-28 12:01] LABS: FREE T4 1.68 NG/DL (0.76-1.46)
[2020-01-28] MEDS: oxyCODONE 5MG TAB PO PRN ×2 (13:59→21:46)
[2020-01-28] MEDS: MAG SULF 1GM/100ML (MAG RUN) 1 GM in IV 1 EA IV SCH ×2 (16:01→16:53)
[2020-01-29] MEDS: NS 1,000 ML IV SCH ×2 (05:12→08:42)
[2020-01-29 06:00] VITALS: BP_SYST 119; BP_SYST 124; BP_DIAS 60; BP_DIAS 61
[2020-01-29] MEDS ORDERED: LEVOTHYROXINE 25MCG TABLET (0.025MG) PO SCH (06:00)
[2020-01-29 06:51] LABS: HEMOGLOBIN 8.6 g/dl (12.0-15.5); MEAN CORPUSCULAR HEMOGLOBIN 28.8 pg (27.0-33.0); MEAN CORPUSCULAR HGB CONC 31.9 g/dl (32.0-36.5); MEAN CORPUSCULAR VOLUME 90.3 fl (80.0-96.0); PLATELET COUNT, AUTOMATED 235 10^3/uL (150-450); RED BLOOD COUNT 2.99 10^6/uL (4.00-5.40); WHITE BLOOD COUNT 4.5 10^3/uL (4.0-10.0)
[2020-01-29 07:15] LABS: BLOOD UREA NITROGEN 7 MG/DL (7-18); CALCIUM LEVEL 7.8 MG/DL (8.8-10.2); CARBON DIOXIDE LEVEL 23 MEQ/L (21-32); CHLORIDE LEVEL 114 MEQ/L (98-107); CREATININE FOR GFR 0.48 MG/DL (0.55-1.30); GLOMERULAR FILTRATION RATE > 60.0 (>45); GLUCOSE, FASTING 86 MG/DL (70-100); MAGNESIUM LEVEL 1.8 MG/DL (1.8-2.4); POTASSIUM SERUM 3.8 MEQ/L (3.5-5.1); SODIUM LEVEL 145 MEQ/L (136-145)
[2020-01-29] MEDS ORDERED: MIRALAX *UNIT DOSE* 17GM PACKET PO SCH (07:15)
[2020-01-29] MEDS ORDERED: SENNA 8.6 MG TAB (SENOKOT) PO PRN (07:15)
[2020-01-29] MEDS: FOLIC ACID 1 MG TAB PO SCH (08:39)
[2020-01-29] MEDS: MULTIVITAMINS/MINERALS THERAP 1 TAB PO SCH (08:39)
[2020-01-29] MEDS: DULoxetine 30 MG CAP (CYMBALTA) PO SCH (08:41)
[2020-01-29] MEDS: THIAMINE 100 MG TAB PO SCH (08:41)
[2020-01-29] MEDS: cefTRIAXone SOD 1 GM in D5W MINI-BAG PLUS 50 ML IV SCH (08:42)
[2020-01-29] MEDS: oxyCODONE 5MG TAB PO PRN (08:42)
[2020-01-29] MEDS ORDERED: SENN18TA PO (12:36)
[2020-01-29] MEDS ORDERED: LEVO25TA5 PO (12:36)
[2020-01-29] MEDS ORDERED: THIA100TA PO (12:36)
[2020-01-29] MEDS ORDERED: FOLI1TAB11 PO (12:36)
--- NOTE | 2020-01-29 14:14 | DS.PDOC ---
Discharge Summary General Date of Admission Jan 28, 2020 at 00:28 Date of Discharge 01/29/20 Primary Care Physician: ZAINA DEL REAL DO Attending Physician: NIRALI MELENDEZ MD Discharge Summary PROCEDURES PERFORMED DURING STAY: [None]. ADMITTING DIAGNOSES: SIRS NORMA DIARRHEA ELEVATED TSH CHRONIC BACK PAIN HTN CHRONIC MIGRAINES DEPRESSION ANXIETY ACUTE ON CHRONIC ANEMIA DISCHARGE DIAGNOSES: SIRS NORMA DIARRHEA ELEVATED TSH CHRONIC BACK PAIN HTN CHRONIC MIGRAINES DEPRESSION ANXIETY ACUTE ON CHRONIC ANEMIA COMPLICATIONS/CHIEF COMPLAINT: Acute Renal Failure. HISTORY OF PRESENT ILLNESS: 69 yo W with a history of severe migraines, depression, anxiety, alcohol use disorder, chronic back pain and insomnia who was brought into the ED reporting that she has been feeling unwell and in bed for 4 days and her boyfriend convinced her to the come to the ED after he noted that she was increasingly confused. In the ED, she reports a history of falls, a recent fall without hitting her head or LOC when she tripped and her walker malfunctioned, some ongoing diarrhea that may be chronic? vs. recently worse?, without abdominal pain, nausea, vomiting, fever, chills. She did report that her boyfriend was recently ill with a cold but feels better now. She reports that her last drink was maybe a week ago, has poor PO and some has generalized pain without chest pain, shortness of breath, peripheral edema, leg swelling or palpitations. Upon ED arrival, she was hypotensive to 89/55, borderline hypothermic to 95.7 and reportedly somnolent that the ED physician was considering narcan given history of chronic opioid therapy for chronic pain but subsequently became more alert after hydration. While in the ED, she was given empiric ceftriaxone and 2L NS with improvement of blood pressure. Initial workup was notable for WBC 6.5, acute on chronic anemia to hgb 7.7, negative ED guaiac, Na 142, K 3.2, elevated Cr to 1 from baseline 0.5, UA with 6WBCs and 11 hyaline casts without bacteria, leukocyte esterase or nitrites, EKG that was stable from prior with NSR with a known LBBB, negative troponin and tox screen that was positive for opiates. She had CT head that was negative for acute intracranial abnormalities and CXR without acute pathology. She is now being admitted for NORMA, dehydration, possible sepsis and failure to thrive. HOSPITAL COURSE: SIRS - admitted with hypothermia, AMS, hypotension, weakness - f/u BCx prelim negative. UA showing WBC, negative LE, Nitrites, Blood. - CXR wnl - afebrile, no WBC NORMA - s/p 2L bolus, NS at 150 - resolved Diarrhea - no repeat episodes Metabolic Encephalopathy - infection vs dehydration vs meds - improved, AAO x 3 this monring - infection unlikely etiology, patient had no leukocytosis, was afebrile throughout admission - suspect dehydration and medications to have been responsible - recommend judicious use of pain medication on DC. ETOH use disorder - CIWA, ativan as needed Elevated TSH - TSH 5.0 - FT4 1.68 - started low dose synthroid - 25 mcg PO daily Chronic back pain - takes oxycodone 10 mg PO qid at home - BP soft, SBP 90s - will give oxycodone 5 mg q6h prn for now HTN - patient had low BP on admission, held HCTZ on DC. - resumed lisinopril 5 mg daily Chronic migraines - continue home meds Depression and Anxiety: -continue home meds Acute on chronic anemia: w/ history of MARANDA - Hgb improved to 9.1 after 1 unit. - negative guaiac in the ED with no recent history of noted bleeding - ferritin elevated, Fe wnl - suspect anemia, elevated ferritin 2/2 chronic etoh use, liver disease Malnutrition with FTT: -nutrition consult placed, patient stated that she is eating well, and that her boyfriend makes all her meals for her - discussed living situation with her boyfriend. He assured me that she receives good care and that he is happy to care for her. Confirmed situation with case management as well. DISCHARGE MEDICATIONS: Please see below. ALLERGIES: Please see below. PHYSICAL EXAMINATION ON DISCHARGE: VITAL SIGNS: Please see below. General: comfortable HEENT: PERRLA, EOMI, sclerae clear Neck: supple, normal ROM, no JVD Resp: lungs CTAB, no wheeze, no rales, no crackles CVS: RRR, normal S1, S2, no murmurs Abdo: soft, no masses, no hepatosplenomegaly, BS+, no rebound tenderness Extremities: no edema, pulses 2+ MSK: no joint deformities, normal ROM Neuro: no focal neuro deficits, moving all 4 extremities Psych: calm, cooperative, AAO x 3 LABORATORY DATA: Please see below. IMAGING: CXR: IMPRESSION: No acute or focal cardiopulmonary process. CT head: IMPRESSION: 1. No acute intracranial abnormality. 2. Atrophy and chronic microangiopathic change in supratentorial white matter. PROGNOSIS: good ACTIVITY: [As tolerated]. DIET: regular DISCHARGE PLAN: PCP follow up - per boyfrienmichel, has appointment with her PCP Dr. Del Real on 02/17 DISPOSITION: home DISCHARGE INSTRUCTIONS: 1. please follow up with your PCP within 1 weeks 2. you started a new medication for your thyroid - levothyroxine 25 mcg tablet once per day. Your PCP will check your blood work in 4-6 weeks to see if there was improvement. 3. if you develop fever, chills, nausea, vomiting, diarrhea, chest pain, or otherwise worsening of your symptoms, please call 911 or return to the ER. ITEMS TO FOLLOWUP ON ON OUTPATIENT: 1. Repeat TSH 4-6 weeks. DISCHARGE CONDITION: [Stable]. TIME SPENT ON DISCHARGE: Greater than 30 minutes. Vital Signs/I&Os Vital Signs Date Time Temp Pulse Resp B/P (MAP) Pulse Ox O2 Delivery O2 Flow Rate FiO2 01/29/20 09:12 18 Room Air 01/29/20 06:00 86 124/60 01/29/20 06:00 97.8 97 01/27/20 18:46 2.0 I&O- Last 24 Hours up to 6 AM 01/29/20 06:00 Intake Total 5446 ml Output Total 100 ml Balance 5346 ml Laboratory Data Labs 24H Laboratory Tests 2 01/29/20 06:17: Nucleated Red Blood Cells % (auto) 0.0, Anion Gap 8, Glomerular Filtration Rate > 60.0, Calcium Level 7.8L, Magnesium Level 1.8 CBC/BMP Laboratory Tests 01/29/20 06:17 Microbiology Microbiology 01/27/20 Blood Culture - Preliminary, Resulted No growth after 24 hours . All specim... 01/27/20 Blood Culture - Preliminary, Resulted No growth after 24 hours . All specim... Discharge Medications Scheduled Amitriptyline HCl (Amitriptyline HCl) 100 Mg Tab, 100 MG PO QHS, (Reported) Divalproex Sodium (Divalproex Sodium) 250 Mg Tablet.dr, 250 MG PO QHS, (Rep orted) Duloxetine Hcl (Duloxetine HCl) 60 Mg Capsule.dr, 60 MG PO BID, (Reported) Folic Acid (Folic Acid) 1 Mg Tablet, 1 MG PO DAILY Levothyroxine Sodium (Levothyroxine Sodium) 25 Mcg Tablet, 25 MCG PO DAILY@06 Lisinopril (Lisinopril) 5 Mg Tablet, 5 MG PO DAILY, (Reported) Thiamine Hcl (Vitamin B-1) 100 Mg Tablet, 100 MG PO DAILY Scheduled PRN Oxycodone HCl (Oxycodone HCl) 10 Mg Tablet, 10 MG PO QID PRN for PAIN, (Reported) Senna (Senna Lax) 8.6 Mg Tablet, 1 TAB PO BIDP PRN for CONSTIPATION Allergies Coded Allergies: latex (Verified Allergy, Intermediate, RASH, 08/07/18) baclofen (Verified Adverse Reaction, Intermediate, LEG WEAKNESS, 08/07/18) hydrocodone (Verified Adverse Reaction, Intermediate, LEG WEAKNESS, 08/07/18) NIRALI MELENDEZ MD Jan 29, 2020 14:14
[2020-03-02] MEDS ORDERED: THIA100TA PO (09:24)
== END 2020-01-29 15:00 | disposition home or self-care (01) | DRG 640 ==
LOC: EDBD 18:25 → M ED 18:25 → M ED INP 01-28 00:28 → ENRESERV 01-28 01:05 → M MS5PR 01-28 02:48
PROVIDERS: ADMIT Internal Medicine; ATTEND Family Medicine
DX: E86.0 Dehydration (principal); G93.41 Metabolic encephalopathy; N17.9 Acute kidney failure, unspecified; E46 Unspecified protein-calorie malnutrition; Z68.1 Body mass index [BMI] 19.9 or less, adult; R19.7 Diarrhea, unspecified; F32.9 Major depressive disorder, single episode, unspecified; F41.9 Anxiety disorder, unspecified; D50.9 Iron deficiency anemia, unspecified; M54.5 Low back pain; I10 Essential (primary) hypertension; G43.909 Migraine, unspecified, not intractable, without status migrainosus; F10.10 Alcohol abuse, uncomplicated; G47.00 Insomnia, unspecified; R68.0 Hypothermia, not associated with low environmental temperature; Z79.899 Other long term (current) drug therapy; Z91.040 Latex allergy status; Z88.5 Allergy status to narcotic agent; Z88.8 Allergy status to other drugs, medicaments and biological substances; R29.6 Repeated falls

== ENCOUNTER → 2020-02-04 | Outpatient (REF) | payer MEDICARE ==
[~2020-02-04] MED LIST changes: +FOLI1TAB11 PO; +LEVO25TA5 PO; +SENN18TA PO; +THIA100TA PO
[2020-02-04 19:21] LABS: H PYLORI QUALITATIVE IgG NEGATIVE (NEGATIVE)
== END ==
LOC: M LAB REF 12:23
PROVIDERS: ATTEND Internal Medicine
DX: R10.84 Generalized abdominal pain (principal)

== ENCOUNTER → 2020-02-10 | Outpatient (CLI) | payer MEDICARE ==
[~2020-02-10] MED LIST changes: +E-Z-GAS II EFFERVESCENT PACKET (SODIUM BICARB./CITRIC ACID/SIMETHICONE) As Ordered ONE; +E-Z-HD 98% w/w 340GM SUSP BTL As Ordered ONE; +E-Z-PAQUE 96% w/w SUSP 176GM BTL As Ordered ONE
--- NOTE | 2020-02-19 07:54 | REP ---
UPPER GI AIR CONTRAST AND SMALL BOWEL FOLLOW-THROUGH This procedure was performed by SUSIE Ferguson, under the direct supervision of Dr. Turner. Images were reviewed with Dr. Turner prior to dictation. The assembler mechanical ordnance film shows surgical laura in the right upper quadrant, as well as hardware from L3 to S1 fusion. The intestinal gas pattern is nonspecific. The oral and pharyngeal stages of deglutition were unremarkable. Esophageal transport is prompt and efficient. There is no esophagitis, stricture, mucosal ring, or hiatal hernia. No gastroesophageal reflux disease was visualized during the course of this exam. The stomach heller are normally outlined. The rugal folds are smooth and regular. There is no gastritis, neoplasm, or ulcer disease. The duodenal heller are normally outlined. The mucosal folds are smooth and regular. There is no duodenitis, peptic ulcer disease, or neoplasm. The visualized portion of the proximal small bowel appears normal in course and caliber. The barium column was followed through the small bowel to the level of the terminal ileum. Small bowel transit time was approximately 155 minutes. During fluoroscopy, gentle palpation shows all loops to be freely movable and pliable. The small bowel mucosal pattern is normal in course and caliber. Spot imaging of the terminal ileum shows it to be unremarkable. IMPRESSION: Unremarkable upper gastrointestinal (GI) and small bowel follow-through. 0.3 minutes of fluoroscopy time was utilized for this procedure. This has been dictated by USSIE Ferguson with Dr. Turner. [facility]
== END ==
LOC: M RAD 07:50
PROVIDERS: ATTEND Internal Medicine
DX: R10.84 Generalized abdominal pain (principal); D64.9 Anemia, unspecified

== ENCOUNTER → 2020-02-18 | Outpatient (REF) | payer MEDICARE ==
[~2020-02-18] MED LIST changes: -E-Z-GAS II EFFERVESCENT PACKET (SODIUM BICARB./CITRIC ACID/SIMETHICONE) As Ordered ONE; -E-Z-HD 98% w/w 340GM SUSP BTL As Ordered ONE; -E-Z-PAQUE 96% w/w SUSP 176GM BTL As Ordered ONE
[2020-02-18 14:22] LABS: PERCENT SATURATION 66.3 % (13.2-45.0)
== END ==
LOC: M LAB REF 12:39
PROVIDERS: ATTEND Internal Medicine
DX: K74.69 Other cirrhosis of liver (principal)

== ENCOUNTER 2020-05-15 16:50 | Inpatient (IN) | payer MEDICARE ==
[~2020-05-15] VITALS: Ht 162.6 cm; Wt 49.9 kg
[~2020-05-15 16:50] MED LIST changes: +CYAN500T14 PO; -CYAN500T8 PO
[2020-05-15] MEDS ORDERED: HYDR12.55 PO (17:00)
[2020-05-15] MEDS ORDERED: OMEP-221 PO (17:00)
[2020-05-15] MEDS ORDERED: NS 1,000 ML IV SCH (17:20)
[2020-05-15] MEDS ORDERED: LIDOCAINE 2% 5ML JELLY UROJET TOP ONE (17:30)
[2020-05-15] MEDS ORDERED: MECLIZINE 25 MG TABLET PO ONE (17:30)
--- NOTE | 2020-05-15 17:47 | REPVR ---
PROCEDURE INFORMATION: Exam: CT Head Without Contrast Exam date and time: 05/15/2020 5:28 PM Age: 69 years old Clinical indication: Altered mental status/memory loss TECHNIQUE: Imaging protocol: Computed tomography of the head without contrast. Radiation optimization: All CT scans at this facility use at least one of these dose optimization techniques: automated exposure control; mA and/or kV adjustment per patient size (includes targeted exams where dose is matched to clinical indication); or iterative reconstruction. COMPARISON: CT Head without contrast 01/27/2020 10:35 PM FINDINGS: Brain: Mild to moderate diffuse parenchymal atrophy. Minimal white matter disease. Cerebral ventricles: The degree of ventricular dilatation is normal for the degree of atrophy present. Bones/joints: There is hyperostosis frontalis interna. Paranasal sinuses: Visualized sinuses are unremarkable. No fluid levels. Mastoid air cells: Visualized mastoid air cells are well aerated. Soft tissues: Right posterior parietal soft tissue hematoma/contusion. IMPRESSION: 1. The degree of ventricular dilatation is normal for the degree of atrophy present. 2. Right posterior parietal soft tissue hematoma/contusion. No skull fracture. 3. No acute intracranial findings. Electronically signed by: Danny Del Toro On 05/15/2020 17:46:38 PM
--- NOTE | 2020-05-15 18:33 | REP ---
INDICATION: Altered Mental Status COMPARISON: 01/27/2020 TECHNIQUE: Portable AP view of the chest FINDINGS: The mediastinum and cardiac silhouette are stable and within normal limits for portable technique. The lung lord are clear without acute consolidation, effusion, or pneumothorax. Skeletal structures are intact. IMPRESSION: No acute cardiopulmonary process appreciated. <Electronically signed by Diego Hernandez > 05/15/20 [id number]
[2020-05-15 18:36] LABS: VENOUS BASE EXCESS 0.9 (-2.0-2.0); VENOUS HCO3 26.1 MEQ/L (23.0-27.0); VENOUS O2 SATURATION 61.5 % (60.0-80.0); VENOUS PARTIAL PRESSURE CO2 43.7 mmHg (38.0-50.0); VENOUS PARTIAL PRESSURE O2 32.3 mmHg (30.0-50.0); VENOUS PH 7.394 UNITS (7.330-7.430); VENOUS STANDARD HCO3 24.5 MEQ/L; VENOUS TOTAL CO2 27.4 MEQ/L (24.0-28.0)
[2020-05-15 18:37] LABS: HEMATOCRIT 35.9 % (36.0-47.0); HEMOGLOBIN 11.5 g/dl (12.0-15.5); MEAN CORPUSCULAR HEMOGLOBIN 29.4 pg (27.0-33.0); MEAN CORPUSCULAR VOLUME 91.8 fl (80.0-96.0); PLATELET COUNT, AUTOMATED 181 10^3/uL (150-450); RED BLOOD COUNT 3.91 10^6/uL (4.00-5.40); WHITE BLOOD COUNT 10.3 10^3/uL (4.0-10.0)
[2020-05-15 18:57] LABS: BASOPHILS 1 % (0-1); LYMPHOCYTES 4 % (16-44); MONOCYTES 6 % (0-5); NEUTROPHILS 79 % (28-66); PLATELET ESTIMATE NORMAL (NORMAL)
--- NOTE | 2020-05-15 18:57 | ECGEPIP ---
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
[2020-05-15 18:59] LABS: PLATELET CLUMPS SMALL AMT
[2020-05-15 19:07] LABS: ACETAMINOPHEN LEVEL < 2.0 UG/ML (10.0-30.0); ALBUMIN 3.6 GM/DL (3.2-5.2); ALT/SGPT 12 U/L (12-78); BILIRUBIN,DIRECT 0.3 MG/DL (0.0-0.2); BILIRUBIN,TOTAL 0.8 MG/DL (0.2-1.0); BLOOD UREA NITROGEN 26 MG/DL (7-18); CALCIUM LEVEL 8.6 MG/DL (8.8-10.2); CARBON DIOXIDE LEVEL 27 MEQ/L (21-32); CHLORIDE LEVEL 101 MEQ/L (98-107); CK-MB VALUE MASS < 1.0 NG/ML (<3.6); CPK CREATINE PHOSPHOKINASE 124 U/L (26-192); CREATININE FOR GFR 1.18 MG/DL (0.55-1.30); ETHYL ALCOHOL (ETHANOL) < 0.003 % (0.000-0.010); GLOMERULAR FILTRATION RATE 48.5 (>45); GLUCOSE, FASTING 218 MG/DL (70-100); LIPASE 34 U/L (73-393); MB/CK RELATIVE INDEX 0.81 (< OR =4); POTASSIUM SERUM 3.4 MEQ/L (3.5-5.1); SALICYLATE LEVEL < 1.7 MG/DL (5.0-30.0); SODIUM LEVEL 137 MEQ/L (136-145); TOTAL PROTEIN 7.1 GM/DL (6.4-8.2); TROPONIN I < 0.02 NG/ML (< 0.10)
[2020-05-15 19:10] LABS: AMPHETAMINES LEVEL URINE NEGATIVE (NEGATIVE); BARBITURATES URINE NEGATIVE (NEGATIVE); BENZODIAZEPINES URINE NEGATIVE (NEGATIVE); CANNABINOIDS URINE NEGATIVE (NEGATIVE); COCAINE METABOLITE URINE NEGATIVE (NEGATIVE); METHADONE URINE NEGATIVE (NEGATIVE); OPIATES URINE POSITIVE (NEGATIVE); PHENCYCLIDINE URINE NEGATIVE (NEGATIVE)
[2020-05-15] MEDS ORDERED: LEVO25TA5 PO (19:52)
[2020-05-15] MEDS ORDERED: FOLI1TAB11 PO (19:52)
[2020-05-15] MEDS ORDERED: THIA100T7 PO (20:16)
[2020-05-15] MEDS ORDERED: POTASSIUM CHLORIDE 10 MEQ SR TABLET PO ONE (20:30)
[2020-05-15] MEDS ORDERED: MOM 30ML SUSPENSION UDC PO PRN (20:45)
[2020-05-15] MEDS ORDERED: MAALOX 30 ML SUSP *UDC PO PRN (20:45)
[2020-05-15] MEDS ORDERED: MELA10CA PO (20:49)
[2020-05-15] MEDS ORDERED: med rec comment (20:50)
[2020-05-15 21:27] LABS: RSV AMPLIFICATION NEGATIVE (NEGATIVE)
--- NOTE | 2020-05-15 21:39 | HPEPDOC ---
General Date of Admission May 15, 2020 at 20:23 Date of Service: May 15, 2020 Attending Physician: TAMIKA GALLO MD Chief Complaint The patient is a 69-year-old female admitted with a reason for visit of Altered Mental State. History of Present Illness History of present illness: Mrs. Contreras 69 year old female with history of depression, anxiety, alcohol use disorder, chronic back pain, foot drop, and recurrent falls was brought to the emergency department as patient was more confused, had a couple of falls during the day. In the ED when I went to talk to her she wasn't conversant, she was oriented to self and place but not to time, she couldn't answer any of the que stions. All the history was obtained from her boyfriend on phone. He reports patient woke up in the morning and was confused, she was using the restroom and had a fall, it was unwitnessed, and she was covered in urine when he saw her. He reports she has history of frequent falls because of her foot drop in her right leg. He says she had another fall couple of hours after when she tried to get up from bed, no loss of consciousness during the 2 episodes. As per him she was becoming more confused and was not making sense and was talking gibberish. He reports she took no medication today as far as he saw. He denied she having any fever, chills. Past medical history: Depression/anxiety Alcohol use disorder Chronic back pain Foot drop Recurrent falls Insomnia Severe migraine Past Surgical history: History of back surgery Hysterectomy Cholecystectomy Left ankle surgery Family history: Mother- from cancer Father- from [place] Social history: From Prior admission and boyfriend Smoking denies Alcohol: As per boyfriend she drinks a glass of vodaka with milk in the afternoon. She did not have any alcohol today. Drugs denies No recent travels REVIEW OF SYSTEMS: Patient is not conversant couldn't be obtained PHYSICAL EXAMINATION: Limited physical exam as patient was not following commands. General: Patient is awake, laying in bed , ill-appearing thin and frail. Eyes: Conjunctiva clear, pupils equal round. Fundus: not visualized. ENT: Very dry mouth, poor dentition. Neck: No JVD, or masses noted Cardiovascular: S1, S2, normal rhythm, no murmur. Respiratory: Chest is clear to auscultation bilaterally, no rhonchi or wheezes. Abdomen: Soft, bowel sounds positive, Nontender on palpation. Extremities: No edema, no tenderness. Central nervous system (RESOURCE CONSERVATION MANAGER): Awake, not alert and oriented to person and place but not to time. Patient was not following commands in order to do a complete neuro exam. Skin: Dry skin. Imaging : Head CT 05/15/20: Reported as 1. The degree of ventricular dilatation is normal for the degree of atrophy present. 2. Right posterior parietal soft tissue hematoma/contusion. No skull fracture. 3. No acute intracranial findings. Chest x-ray 05/15/2019: Reported as No acute cardiopulmonary processes appreciated. Assessment: 69-year-old with a history of alcohol use disorder, chronic back pain on opioids, depression/anxiety was brought to the ED with progressive confusion and weakness, with history of falls due to foot drop. In the ED her initial blood work showed mild elevation in WBC 10.3, hemoglobin of 11.5, mildly low potassium of 3.4, and urine tox was positive for opioids. Hospitalist was contacted for further management. Plan: Metabolic encephalopathy: - Likely due to dehydration, opioid use. - Hold off on her home oxycodone. - Will give her Tylenol for pain for now. - Continue IV hydration, patient is having difficulty swallowing - PT/OT eval in place. History of alcohol use: - Place her on CIWA protocol. - Will give her thiamine and folic acid Hypokalemia: - Patient potassium is 3.4 in ED. - Replace potassium with Krun 20meq. Hypertension: - Continue her home medication Chronic migraine: - Continue her home medication Depression/anxiety: - Continue home medication DVT prophylaxis: - Teds and sequentials. Home Medications Scheduled Divalproex Sodium (Divalproex Sodium) 250 Mg Tablet.dr, 250 MG PO QHS, (Reported) Duloxetine Hcl (Duloxetine HCl) 60 Mg Capsule.dr, 60 MG PO BID, (Reported) Folic Acid (Folic Acid) 1 Mg Tablet, 1 MG PO DAILY, (Reported) Hydrochlorothiazide (Hydrochlorothiazide) 12.5 Mg Tablet, 12.5 MG PO DAILY, (Reported) Levothyroxine Sodium (Levothyroxine Sodium) 25 Mcg Tablet, 25 MCG PO QAM, (Reported) Lisinopril (Lisinopril) 5 Mg Tablet, 5 MG PO DAILY, (Reported) Omeprazole (Omeprazole) 40 Mg Capsule.dr, 40 MG PO BID, (Reported) Thiamine HCl (Thiamine HCl) 100 Mg Tablet, 100 MG PO DAILY, (Reported) Scheduled PRN Melatonin (Melatonin) 10 Mg Capsule, 10 MG PO QHS PRN for SLEEP, (Reported) Oxycodone HCl (Oxycodone HCl) 10 Mg Tablet, 10 MG PO QID PRN for PAIN, (Reported) Miscellaneous Medications [med rec comment] , (Reported) patient unable to verify/ unsure of last dose Allergies Coded Allergies: amoxicillin (Verified Allergy, Severe, swells up and rash, 03/02/20) A-FIB/CHADSVASC A-FIB History Current/History of A-Fib/PAF?: No Vital Signs Vital Signs Date Time Temp Pulse Resp B/P (MAP) Pulse Ox O2 Delivery O2 Flow Rate FiO2 05/15/20 21:34 96 98 Room Air 05/15/20 21:30 124/84 (97) 05/15/20 18:50 16 Laboratory Data Labs 24H Laboratory Tests 2 05/15/20 17:54: Neutrophils (%) (Auto) , Nucleated Red Blood Cells % (auto) 0.0, Neutrophils 79H, Band Neutrophils 10, Lymphocytes (Manual) 4L, Monocytes (Manual) 6H, Basophils (Manual) 1, Red Blood Cell Morphology NORMAL, Platelet Estimate NORMAL, Clumped Platelets SMALL AMT, Blood Gas Bicarbonate Standard 24.5, Venous Blood pH 7.394, Venous Blood Partial Pressure CO2 43.7, Venous Blood Partial Pressure O2 32.3, Venous Blood Total Carbon Dioxide 27.4, Venous Blood HCO3 26.1, Venous Blood Oxygen Saturation 61.5, Venous Blood Base Excess 0.9, Anion Gap 9, Glomerular Filtration Rate 48.5, Calcium Level 8.6L, Total Bilirubin 0.8, Direct Bilirubin 0.3H, Aspartate Amino Transf (AST/SGOT) 13, Alanine Aminotransferase (ALT/SGPT) 12, Alkaline Phosphatase 85, Ammonia < 10, Total Creatine Kinase 124, Creatine Kinase MB < 1.0, Creatine Kinase MB Relative Index 0.81, Troponin I < 0.02, Total Protein 7.1, Albumin 3.6, Albumin/Globulin Ratio 1.0L, Lipase 34L, Thyroid Stimulating Hormone (TSH) 1.180, Salicylates Level < 1.7L, Acetaminophen Level < 2.0L, Ethyl Alcohol Level < 0.003 05/15/20 18:10: Urine Color YELLOW, Urine Appearance HAZY, Urine pH 5.0, Urine Specific [place] 1.021, Urine Protein 1+H, Urine Glucose (UA) 1+H, Urine Ketones TRACEH, Urine Blood NEGATIVE, Urine Nitrite NEGATIVE, Urine Bilirubin NEGATIVE, Urine Urobilinogen 2.0H, Urine Leukocyte Esterase NEGATIVE, Urine WBC (Auto) 1, Urine RBC (Auto) 2, Urine Hyaline Casts (Auto) 3, Urine Bacteria (Auto) NEGATIVE, Urine Squamous Epithelial Cells 0, Urine Mucus (Auto) SMALL, Urine Sperm (Auto) , Lactic Acid Level 1.8, Urine Opiates Screen POSITIVEH, Urine Methadone Screen NEGATIVE, Urine Barbiturates Screen NEGATIVE, Urine Phencyclidine Screen NEGATIVE, Urine Amphetamines Screen NEGATIVE, Urine Benzodiazepines Screen NEGATIVE, Urine Cocaine Metabolite Screen NEGATIVE, Urine Cannabinoids Screen NEGATIVE 05/15/20 20:30: Coronavirus (COVID-19)(PCR) NEGATIVE, Influenza Type A (RT-PCR) NEGATIVE, Influenza Type B (RT-PCR) NEGATIVE, Respiratory Syncytial Virus (PCR) NEGATIVE CBC/BMP Laboratory Tests 05/15/20 17:54 Plan / VTE VTE Prophylaxis Ordered?: Yes GME ATTESTATION GME ATTESTATION My faculty preceptor for this patient encounter was physically present during the encounter and was fully available. All aspects of the patient interview, examination, medical decision making process, and medical care plan development were reviewed and approved by the faculty preceptor. The faculty preceptor is aware and concurs with the plan as stated in the body of this note and will attest to such by his/her cosignature. ATTENDING NOTE I, A Yousef, have independently examined this patient and performed my own physical exam, as well as reviewed the documentation and edited where necessary. I have discussed in detail with the resident / student the findings and plan of treatment as documented by the resident / student and edited their note. I agree with their findings and treatment plan and have edited their documentation. I will continue to follow the patient during this hospital stay. I spoke with the Connor who tells me shes just been progressively getting worse over the past 10 years since his known her weaker and has a drop foot and doesnt use her cane often. He is worried that she takes too much of her opiates for her back pain. Regarding her mumbling difficult to understand speech she says she has no teeth and even he has a hard time understanding her most of the time so he doesnt think that this is different from her baseline. Raúl Torres MD May 15, 2020 21:39 TAMIKA GALLO MD May 16, 2020 06:19
[2020-05-15] MEDS ORDERED: KCL 10MEQ IN D5/0.45NS 1000ML 1,000 ML IV SCH (21:45)
[2020-05-15] MEDS: KCL 10MEQ/100ML SWI (KRUN) 10 MEQ in IV 1 EA IV SCH ×2 (22:00→23:55)
[2020-05-15 22:51] VITALS: BP 108/52
[2020-05-15] MEDS: NS 1,000 ML IV SCH (23:19)
[2020-05-15] MEDS: DOCUSATE SODIUM 100MG CAPSULE PO SCH (23:55)
[2020-05-15] MEDS: THIAMINE 100 MG TAB PO SCH (23:55)
[2020-05-15 23:59] VITALS: BP 108/52
[2020-05-16] VITALS (7 sets, daily range): BP systolic 95–110; BP diastolic 50–59
[2020-05-16] MEDS: ACETAMINOPHEN TAB 650MG DOSE (2X325MG) PO PRN ×2 (05:36→12:45)
[2020-05-16 06:56] LABS: HEMATOCRIT 29.7 % (36.0-47.0); HEMOGLOBIN 9.6 g/dl (12.0-15.5); MEAN CORPUSCULAR HEMOGLOBIN 29.8 pg (27.0-33.0); MEAN CORPUSCULAR HGB CONC 32.3 g/dl (32.0-36.5); MEAN CORPUSCULAR VOLUME 92.2 fl (80.0-96.0); PLATELET COUNT, AUTOMATED 143 10^3/uL (150-450); RED BLOOD COUNT 3.22 10^6/uL (4.00-5.40)
[2020-05-16 07:28] LABS: BLOOD UREA NITROGEN 26 MG/DL (7-18); CALCIUM LEVEL 8.2 MG/DL (8.8-10.2); CARBON DIOXIDE LEVEL 26 MEQ/L (21-32); CHLORIDE LEVEL 104 MEQ/L (98-107); CREATININE FOR GFR 0.99 MG/DL (0.55-1.30); GLOMERULAR FILTRATION RATE 59.4 (>45); GLUCOSE, FASTING 121 MG/DL (70-100); MAGNESIUM LEVEL 1.8 MG/DL (1.8-2.4); POTASSIUM SERUM 3.6 MEQ/L (3.5-5.1); SODIUM LEVEL 137 MEQ/L (136-145)
[2020-05-16] MEDS ORDERED: LEVOTHYROXINE 25MCG TABLET (0.025MG) PO SCH (09:00)
[2020-05-16] MEDS: DOCUSATE SODIUM 100MG CAPSULE PO SCH ×3 (09:00→21:00)
[2020-05-16] MEDS ORDERED: lisinopriL 5 MG TAB PO SCH (09:00)
[2020-05-16] MEDS ORDERED: hydroCHLOROthiazide 12.5 MG CAPSULE PO SCH (09:00)
[2020-05-16] MEDS ORDERED: FLUBLOK(EGG FREE)(QUAD)INFLUENZA VACC 0.5ML SYRINGE 18YRS & OLDER IM ONE (09:00)
[2020-05-16] MEDS ORDERED: PREVNAR 13 VACCINE SYRINGE IM ONE (09:00)
[2020-05-16] MEDS: MULTIVITAMINS/MINERALS THERAP 1 TAB PO SCH (09:22)
[2020-05-16] MEDS: DULoxetine 30 MG CAP (CYMBALTA) PO SCH ×2 (09:22→21:30)
[2020-05-16] MEDS: FOLIC ACID 1 MG TAB PO SCH (09:23)
[2020-05-16] MEDS: THIAMINE 100 MG TAB PO SCH ×2 (09:23→21:30)
[2020-05-16] MEDS: NS 1,000 ML IV SCH (09:30)
[2020-05-16] MEDS ORDERED: DEXTROSE 50% 50 ML SYRINGE IV PRN (10:00)
[2020-05-16] MEDS ORDERED: GLUCAGON INJ 1MG VIAL SC PRN (10:00)
[2020-05-16] MEDS ORDERED: GLUCOSE 4GM CHEW TABLET PO PRN (10:00)
[2020-05-16 10:25] LABS: FERRITIN 294 NG/ML (8-252); IRON (FE) 8 UG/DL (50-170); PERCENT SATURATION 4.5 % (13.2-45.0); TOTAL IRON BINDING CAPACITY 177 UG/DL (250-450)
[2020-05-16 11:14] LABS: HEMOGLOBIN A1c 5.6 %
[2020-05-16] MEDS ORDERED: PROHANCE 279.3MG/ML 5ML VIAL As Ordered ONE (11:38)
[2020-05-16] MEDS ORDERED: KCL 20MEQ IN 0.45NS 1000ML 1,000 ML IV SCH (12:00)
[2020-05-16] MEDS: HumaLOG INSULIN (NovoLOG) PER UNIT SC SCH ×2 (12:44→16:51)
--- NOTE | 2020-05-16 13:23 | REPVR ---
PROCEDURE INFORMATION: Exam: MR Head Without and With Contrast Exam date and time: 05/16/2020 11:51 AM Age: 69 years old Clinical indication: Altered mental status/memory loss; Confusion or disorientation; Additional info: Stroke TECHNIQUE: Imaging protocol: MR of the head without and with intravenous contrast. Contrast material: PROHANCE; Contrast volume: 5 ml; Contrast route: INTRAVENOUS (IV); COMPARISON: MRI-Brain W/O FOLL BY WITH 12/05/2019 6:36 PM FINDINGS: Limitations: Examination is extremely limited due to patient motion artifact. Post-contrast images are nondiagnostic. Brain: There is moderate high signal abnormality in the periventricular white matter and centrum semiovale, best seen on the flair images. These changes are nonspecific but likely represent chronic small vessel ischemic change. No acute infarct is identified. Cerebral ventricles: Normal. No ventriculomegaly. Bones/joints: Unremarkable. Paranasal sinuses: Normal as visualized. No acute sinusitis. Mastoid air cells: Normal as visualized. No mastoid effusion. Orbits: Unremarkable. Soft tissues: Unremarkable. IMPRESSION: Examination is extremely limited due to patient motion artifact. Post-contrast images are nondiagnostic. Within the limitations of this exam, no acute abnormalities are identified on the noncontrast images. Electronically signed by: Krishna Lira On 05/16/2020 13:23:40 PM
[2020-05-16] MEDS: LORazepam 2 MG TAB PO PRN ×2 (13:31→21:30)
--- NOTE | 2020-05-16 16:11 | IPN ---
PROGRESS NOTE DATE: 05/16/2020 Diane was admitted with altered mental status. She has a history of recurrent falls, alcohol use disorder, chronic anxiety and depression, chronic opiate use. Says she was brought to the emergency room with confusion, had a fall that was unwitnessed, apparently has a right foot drop, as an outpatient falls because of this. Apparently, prior to the admission she was trying to get out of bed when she fell, she was more confused, speech was not intelligible, and she was brought to the emergency room. PHYSICAL EXAMINATION: When I saw her, her was blood pressure 108/52, pulse 92, respiratory rate 29, 96%, subsequent blood pressure has fallen to 100/50. She is not able to answer questions. Her speech is not goal-directed. She shows some perseveration. There is also a lot of word substitution. She did not have any focal weakness besides the right foot drop when I saw her. Subsequent nurse report indicates some left-sided weakness has developed. Lungs: Clear. Heart: Regular rhythm. Abdomen: Soft, nontender, no peripheral edema. LABORATORY DATA: Sodium 137, potassium 3.6, BUN 26, creatinine 1.02, glucose 121, white count 11, hemoglobin 9.6, platelets 143. IMPRESSION: 1. Altered mental status. Concern about the speech abnormality and new report of some left-sided weakness. I have ordered an MRI of the brain. Will do hold parameters for antihypertensives to maintain adequate cerebral perfusion. Check B12, folate, rapid plasma reagin (RPR). 2. Hypertension. She is on IV normal saline 100/hour and a thiazide diuretic combination rationale. I am stopping her antihypertensives in the face of recent relative hypotension. (Wondering whether with enforced compliance she is developing some blood pressure issues due to not taking her medications at home.) 3. Hypothyroidism. She is on levothyroxine. Thyroid stimulating hormone (TSH) normal on current dose. 4. History of type 2 diabetes. I have ordered finger sticks with coverage and a hemoglobin A1c. 5. Alcoholism. She has [facility] [facility] Withdrawal Assessment (CIWA) protocol ordered and is receiving thiamine. 6. Poor social situation. Per sign out, feels unable to take care of his at home. She will need placement after she is medically stabilized.
--- NOTE | 2020-05-16 18:06 | IPN ---
PROGRESS NOTE DATE: 05/16/2020 ADDENDUM PROBLEM LIST: - Chronic opiate therapy with altered mental status. These are on hold. Some of her altered mental status could be withdrawal from this. Need to keep eye open for acute opiate withdrawal symptoms. - Anemia. She has what looks to be anemia of chronic disease. Hemoglobin is generally in the 9-10 range. I have ordered iron studies.
[2020-05-16] MEDS ORDERED: HumaLOG INSULIN (NovoLOG) PER UNIT SC SCH (21:00)
[2020-05-16] MEDS: DIVALPROEX 250 MG TAB PO SCH (21:29)
[2020-05-17] VITALS (7 sets, daily range): BP systolic 103–124; BP diastolic 50–70
[2020-05-17] MEDS: LEVOTHYROXINE 25MCG TABLET (0.025MG) PO SCH (05:38)
[2020-05-17 07:26] LABS: HEMATOCRIT 31.5 % (36.0-47.0); HEMOGLOBIN 10.4 g/dl (12.0-15.5); MEAN CORPUSCULAR HEMOGLOBIN 30.8 pg (27.0-33.0); MEAN CORPUSCULAR VOLUME 93.2 fl (80.0-96.0); PLATELET COUNT, AUTOMATED 166 10^3/uL (150-450); RED BLOOD COUNT 3.38 10^6/uL (4.00-5.40); WHITE BLOOD COUNT 13.9 10^3/uL (4.0-10.0)
[2020-05-17] MEDS: HumaLOG INSULIN (NovoLOG) PER UNIT SC SCH (07:30)
[2020-05-17 07:50] LABS: BLOOD UREA NITROGEN 25 MG/DL (7-18); CALCIUM LEVEL 8.1 MG/DL (8.8-10.2); CARBON DIOXIDE LEVEL 24 MEQ/L (21-32); CHLORIDE LEVEL 107 MEQ/L (98-107); CREATININE FOR GFR 0.88 MG/DL (0.55-1.30); GLOMERULAR FILTRATION RATE > 60.0 (>45); GLUCOSE, FASTING 88 MG/DL (70-100); POTASSIUM SERUM 3.7 MEQ/L (3.5-5.1); SODIUM LEVEL 139 MEQ/L (136-145)
--- NOTE | 2020-05-17 09:15 | IPN ---
PROGRESS NOTE DATE: 05/17/2020 SUBJECTIVE: She is seen [facility], about the same mental status as yesterday. We did an MRI of the brain, it was a poor study due to lack of cooperation on the patient's part. Mental status seems about the same as yesterday. I do not know what her baseline mental status is, having not ever seeing her before. PHYSICAL EXAMINATION: VITAL SIGNS: Blood pressure 103/57, pulse of 86, respirations 18, 94% O2 saturation. GENERAL APPEARANCE: She is lying in bed. She answers questions but her answers are not appropriate, there is a lot of word substitution and garbled speech. NECK: Supple. LUNGS: Clear. HEART: Regular rhythm. No murmur. ABDOMEN: Soft, no masses. EXTREMITIES: No peripheral edema. LABORATORY DATA: White count 13.9, hemoglobin 10.4 which is stable, platelet are 166,000. Sodium is 139, potassium is 3.7, BUN 25, creatinine 0.8, glucose 88. Ammonia level on admission was less than detected. Iron studies confirm anemia of chronic disease, low TIBC, high ferritin. IMPRESSION: 1. Altered mental status, cannot rule out a stroke, could not get an MRI that gave us much of a read on this. On exam today, she is moving both sides equally so I did not see a focal drop. She has a chronic right footdrop. Lab workup is pending. 2. Hypertension, blood pressure is under good control on enforced compliance with her medications. 3. Hypothyroidism, continue levothyroxine. 4. Type 2 diabetes. Hemoglobin A1c is 5.6 suggesting that her diabetes could be well-controlled with diet alone. I am going to stop the fingersticks and coverage. 5. Chronic opiate therapy. Some of her current mental status problems could be withdrawal related to this. 6. Disposition: PFS will need to get involved today. I am not sure where she is going to be going from here but it does not look like it is going to be home. 7. IV fluids discontinued today. ASSESSMENT: RECOMMENDATIONS AND PLAN:
[2020-05-17] MEDS: DOCUSATE SODIUM 100MG CAPSULE PO SCH ×3 (09:31→21:22)
[2020-05-17] MEDS: THIAMINE 100 MG TAB PO SCH ×2 (09:31→21:22)
[2020-05-17] MEDS: FOLIC ACID 1 MG TAB PO SCH (09:31)
[2020-05-17] MEDS: DULoxetine 30 MG CAP (CYMBALTA) PO SCH ×2 (09:31→21:22)
[2020-05-17] MEDS: MULTIVITAMINS/MINERALS THERAP 1 TAB PO SCH (09:31)
[2020-05-17 10:52] LABS: VITAMIN B12 LEVEL 248 PG/ML (247-911)
[2020-05-17 10:53] LABS: FOLATE > 24.0 NG/ML (>5.4)
[2020-05-17] MEDS: DIVALPROEX 250 MG TAB PO SCH (21:22)
[2020-05-18] MEDS: ACETAMINOPHEN TAB 650MG DOSE (2X325MG) PO PRN (01:29)
[2020-05-18] MEDS: LEVOTHYROXINE 25MCG TABLET (0.025MG) PO SCH (05:52)
[2020-05-18 06:00] VITALS: BP 118/65
[2020-05-18 07:03] LABS: HEMATOCRIT 31.4 % (36.0-47.0); HEMOGLOBIN 10.1 g/dl (12.0-15.5); MEAN CORPUSCULAR HEMOGLOBIN 29.6 pg (27.0-33.0); MEAN CORPUSCULAR HGB CONC 32.2 g/dl (32.0-36.5); MEAN CORPUSCULAR VOLUME 92.1 fl (80.0-96.0); PLATELET COUNT, AUTOMATED 179 10^3/uL (150-450); RED BLOOD COUNT 3.41 10^6/uL (4.00-5.40); WHITE BLOOD COUNT 11.7 10^3/uL (4.0-10.0)
[2020-05-18 07:27] LABS: BLOOD UREA NITROGEN 27 MG/DL (7-18); CALCIUM LEVEL 8.7 MG/DL (8.8-10.2); CARBON DIOXIDE LEVEL 23 MEQ/L (21-32); CHLORIDE LEVEL 109 MEQ/L (98-107); CREATININE FOR GFR 0.74 MG/DL (0.55-1.30); GLOMERULAR FILTRATION RATE > 60.0 (>45); GLUCOSE, FASTING 78 MG/DL (70-100); POTASSIUM SERUM 3.4 MEQ/L (3.5-5.1); SODIUM LEVEL 138 MEQ/L (136-145)
[2020-05-18] MEDS: DULoxetine 30 MG CAP (CYMBALTA) PO SCH ×2 (09:04→20:28)
[2020-05-18] MEDS: DOCUSATE SODIUM 100MG CAPSULE PO SCH ×2 (09:05→20:29)
[2020-05-18] MEDS: THIAMINE 100 MG TAB PO SCH (09:05)
[2020-05-18] MEDS: MULTIVITAMINS/MINERALS THERAP 1 TAB PO SCH (09:05)
[2020-05-18] MEDS: FOLIC ACID 1 MG TAB PO SCH (09:05)
--- NOTE | 2020-05-18 10:42 | IPN ---
PROGRESS NOTE DATE: 05/18/2020 SUBJECTIVE: Diane seems stable and maybe a little more alert than yesterday. Probably has reached maximal medical benefit. OBJECTIVE: VITAL SIGNS: Blood pressure 118/65, pulse 97, respiratory rate 18, O2 saturation 94%. LUNGS: Clear. HEART: Regular rhythm. ABDOMEN: Soft and nontender. EXTREMITIES: No edema. NEUROLOGIC: Speech and affect unchanged from yesterday. LABORATORY DATA: CBC unremarkable. Electrolytes unremarkable. B12 level was borderline low. IMPRESSION: 1. Borderline low vitamin B12 levels. Start oral B12. Would recommend a repeat B12 level in about three months to make sure she is adequately absorbing this. 2. Alcoholism. Continue multivitamin and thiamine. 3. History of anxiety/depression and alcohol use disorder. Continue current medications. 4. Disposition: She is medically stable for placement at this time.
[2020-05-18] MEDS: CYANOCOBALAMIN 500 MCG TAB PO SCH (13:32)
[2020-05-18 14:00] VITALS: BP 117/65
[2020-05-18] MEDS: DIVALPROEX 250 MG TAB PO SCH (20:29)
[2020-05-18 22:00] VITALS: BP 121/84
[2020-05-19] MEDS: LEVOTHYROXINE 25MCG TABLET (0.025MG) PO SCH (05:34)
[2020-05-19 06:00] VITALS: BP 119/71
[2020-05-19 06:00] LABS: HEMATOCRIT 31.7 % (36.0-47.0); HEMOGLOBIN 10.5 g/dl (12.0-15.5); MEAN CORPUSCULAR HEMOGLOBIN 30.4 pg (27.0-33.0); MEAN CORPUSCULAR HGB CONC 33.1 g/dl (32.0-36.5); MEAN CORPUSCULAR VOLUME 91.9 fl (80.0-96.0); PLATELET COUNT, AUTOMATED 170 10^3/uL (150-450); RED BLOOD COUNT 3.45 10^6/uL (4.00-5.40); WHITE BLOOD COUNT 9.1 10^3/uL (4.0-10.0)
[2020-05-19 06:33] LABS: BLOOD UREA NITROGEN 28 MG/DL (7-18); CALCIUM LEVEL 8.3 MG/DL (8.8-10.2); CARBON DIOXIDE LEVEL 26 MEQ/L (21-32); CHLORIDE LEVEL 107 MEQ/L (98-107); CREATININE FOR GFR 0.76 MG/DL (0.55-1.30); GLOMERULAR FILTRATION RATE > 60.0 (>45); GLUCOSE, FASTING 121 MG/DL (70-100); POTASSIUM SERUM 3.8 MEQ/L (3.5-5.1); SODIUM LEVEL 138 MEQ/L (136-145)
[2020-05-19] MEDS: DOCUSATE SODIUM 100MG CAPSULE PO SCH (08:19)
[2020-05-19] MEDS: MULTIVITAMINS/MINERALS THERAP 1 TAB PO SCH (08:19)
[2020-05-19] MEDS: FOLIC ACID 1 MG TAB PO SCH (08:19)
[2020-05-19] MEDS: CYANOCOBALAMIN 500 MCG TAB PO SCH (08:19)
[2020-05-19] MEDS: DULoxetine 30 MG CAP (CYMBALTA) PO SCH (08:19)
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
== END 2020-05-19 13:08 | DRG 948 ==
LOC: M ED 16:50 → EDBD 16:50 → M ED INP 20:23 → ENRESERV 21:49 → M MSPAV 22:43
PROVIDERS: ADMIT Family Medicine; ATTEND Family Medicine
DX: R41.82 Altered mental status, unspecified (principal); M21.371 Foot drop, right foot; F10.20 Alcohol dependence, uncomplicated; E87.6 Hypokalemia; I10 Essential (primary) hypertension; E11.9 Type 2 diabetes mellitus without complications; E03.9 Hypothyroidism, unspecified; Z79.899 Other long term (current) drug therapy; F41.9 Anxiety disorder, unspecified; F32.9 Major depressive disorder, single episode, unspecified; R29.6 Repeated falls; G47.00 Insomnia, unspecified; G43.909 Migraine, unspecified, not intractable, without status migrainosus; E86.0 Dehydration; Z88.0 Allergy status to penicillin

== ENCOUNTER → 2020-06-25 | Outpatient (REF) | payer MEDICARE ==
[~2020-06-25] MED LIST changes: -LISI-542 PO; +LISI-898 PO; +MELA10CA PO; +OMEP-221 PO; +THIA100T7 PO; +med rec comment
== END ==
LOC: M LAB REF 16:12
PROVIDERS: ATTEND Internal Medicine
DX: D64.9 Anemia, unspecified (principal)

== ENCOUNTER → 2020-10-15 | Outpatient (CLI) | payer MEDICARE ==
[~2020-10-15] MED LIST changes: +AMIT50TA PO; +OXYC-403 PO
--- NOTE | 2020-10-15 10:32 | REP ---
INDICATION: PAIN AFTER FALL COMPARISON: None. TECHNIQUE: AP, lateral, bilateral oblique views. FINDINGS: There is a transverse fracture through the distal fibular metadiaphysis as well as multiple fractures involving the distal tibia with overlying soft tissue swelling. Medial widening to the ankle mortise suggest associated tendinous injuries. IMPRESSION: Multiple fractures to the distal fibula and tibia. <Electronically signed by Diego Hernandez > 10/15/20 1025
--- NOTE | 2020-10-15 10:33 | REP ---
INDICATION: PAIN AFTER FALL COMPARISON: None. TECHNIQUE: AP, lateral, bilateral oblique views right foot. FINDINGS: Age-related osteopenia and degenerative changes are appreciated. Soft tissue swelling at the ankle noted. There is a transverse fracture through the distal fibular metadiaphysis as well as fracture along the medial malleolus, posterior malleolus and possible along the lateral aspect of the distal tibia. IMPRESSION: Multiple fractures involving the distal tibia and fibula. <Electronically signed by Diego Hernandez > 10/15/20 1021
== END ==
LOC: M WUC 09:57
PROVIDERS: ATTEND Nurse Practitioner Family
DX: S82.425A Nondisplaced transverse fracture of shaft of left fibula, initial encounter for closed fracture (principal); S82.391A Other fracture of lower end of right tibia, initial encounter for closed fracture; W01.0XXA Fall on same level from slipping, tripping and stumbling without subsequent striking against object, initial encounter; Y92.9 Unspecified place or not applicable

== ENCOUNTER → 2020-11-23 | Outpatient (CLI) | payer MEDICARE ==
[~2020-11-23] MED LIST changes: -LISI-898 PO; +LISI5TAB11 PO; -OMEP-221 PO; +OMEP40CA4 PO; +OMEP40CA5 PO; -OMEP40CA97 PO
[2020-11-23 11:59] LABS: BLOOD UREA NITROGEN 16 MG/DL (7-18); CALCIUM LEVEL 9.4 MG/DL (8.8-10.2); CARBON DIOXIDE LEVEL 33 MEQ/L (21-32); CHLORIDE LEVEL 102 MEQ/L (98-107); CREATININE FOR GFR 0.58 MG/DL (0.55-1.30); GLOMERULAR FILTRATION RATE > 60.0 (>45); GLUCOSE, FASTING 90 MG/DL (70-100); POTASSIUM SERUM 4.4 MEQ/L (3.5-5.1); SODIUM LEVEL 139 MEQ/L (136-145)
== END ==
LOC: M LAB 10:19
PROVIDERS: ATTEND Orthopaedic Surgery
DX: S82.841A Displaced bimalleolar fracture of right lower leg, initial encounter for closed fracture (principal); X58.XXXA Exposure to other specified factors, initial encounter; Y92.89 Other specified places as the place of occurrence of the external cause; Y93.89 Activity, other specified; Y99.8 Other external cause status

== ENCOUNTER → 2020-12-17 | Outpatient (REF) | payer MEDICARE ==
[~2020-12-17] MED LIST changes: +LISI-898 PO; -LISI5TAB11 PO; +OMEP-221 PO; -OMEP40CA5 PO
[2020-12-17 17:17] LABS: PERCENT SATURATION 23.3 % (13.2-45.0)
== END ==
LOC: M LAB REF 16:49
PROVIDERS: ATTEND Internal Medicine
DX: D64.9 Anemia, unspecified (principal)

== ENCOUNTER → 2021-06-24 | Outpatient (REF) | payer MEDICARE ==
[~2021-06-24] MED LIST changes: -LISI-898 PO; +LISI5TAB11 PO; -OMEP-221 PO; +OMEP40CA5 PO
[2021-06-24 12:29] LABS: PERCENT SATURATION 38.3 % (13.2-45.0)
== END ==
LOC: M LAB REF 11:47
PROVIDERS: ATTEND Internal Medicine
DX: D50.9 Iron deficiency anemia, unspecified (principal)

== ENCOUNTER → 2021-11-09 | Outpatient (CLI) | payer MEDICARE | LOC: M WUC 09:25 | PROVIDERS: ATTEND Internal Medicine | DX: M25.552 Pain in left hip (principal); M54.50 Low back pain, unspecified; M54.6 Pain in thoracic spine; R10.2 Pelvic and perineal pain; M85.88 Other specified disorders of bone density and structure, other site ==

== ENCOUNTER → 2021-12-23 | Outpatient (REF) | payer MEDICARE | LOC: M LAB REF 16:12 | PROVIDERS: ATTEND Internal Medicine | DX: D51.9 Vitamin B12 deficiency anemia, unspecified (principal) ==

== ENCOUNTER → 2022-02-03 | Outpatient (CLI) | payer MEDICARE | LOC: M PLARAD 10:17 | PROVIDERS: ATTEND Nurse Practitioner Family | DX: M54.16 Radiculopathy, lumbar region (principal) ==

== ENCOUNTER 2022-04-17 19:09 | Emergency (ER) | payer MEDICARE ==
[~2022-04-17] VITALS: Ht 157.5 cm; Wt 70.5 kg
[2022-04-18 00:23] VITALS: BP 183/88
== END 2022-04-18 06:51 | disposition left against medical advice (07) ==
LOC: M ED 19:09
DX: Z53.21 Procedure and treatment not carried out due to patient leaving prior to being seen by health care provider (principal)

== ENCOUNTER → 2022-06-05 | Outpatient (CLI) | payer MEDICARE | LOC: M WUC 10:44 | PROVIDERS: ATTEND Physician Assistant | DX: S90.31XA Contusion of right foot, initial encounter (principal); S40.021A Contusion of right upper arm, initial encounter; W10.9XXA Fall (on) (from) unspecified stairs and steps, initial encounter; Y92.9 Unspecified place or not applicable ==

== ENCOUNTER 2022-06-06 19:25 | Emergency (ER) | payer MEDICARE ==
[~2022-06-06] VITALS: Ht 157.5 cm; Wt 68.2 kg
[2022-06-07 09:01] LABS: BASO % 0.2 % (0.0-1.0); HEMOGLOBIN 11.8 g/dl (12.0-15.5); LYMPH # 1.4 10^3/uL (1.5-5.0); LYMPH % 22.8 % (24.0-44.0); MEAN CORPUSCULAR HEMOGLOBIN 31.1 pg (27.0-33.0); MEAN CORPUSCULAR HGB CONC 32.8 g/dl (32.0-36.5); MONO # 0.6 10^3/uL (0.0-0.8); MONO % 10.5 % (2.0-8.0); NEUTROPHILS # 3.9 10^3/uL (1.5-8.5); NEUTROPHILS % 66.3 % (36.0-66.0); PLATELET COUNT, AUTOMATED 234 10^3/uL (150-450); RED BLOOD COUNT 3.79 10^6/uL (4.00-5.40); WHITE BLOOD COUNT 5.9 10^3/uL (4.0-10.0)
[2022-06-07 09:28] LABS: AMPHETAMINES LEVEL URINE NEGATIVE (NEGATIVE); BARBITURATES URINE NEGATIVE (NEGATIVE); BENZODIAZEPINES URINE NEGATIVE (NEGATIVE); CANNABINOIDS URINE NEGATIVE (NEGATIVE); COCAINE METABOLITE URINE NEGATIVE (NEGATIVE); ETHYL ALCOHOL (ETHANOL) 0.003 % (0.000-0.010); METHADONE URINE NEGATIVE (NEGATIVE); OPIATES URINE NEGATIVE (NEGATIVE); PHENCYCLIDINE URINE NEGATIVE (NEGATIVE)
[2022-06-07 09:30] LABS: BLOOD UREA NITROGEN 26 MG/DL (9-23); CALCIUM LEVEL 9.4 MG/DL (8.3-10.6); CARBON DIOXIDE LEVEL 29 MMOL/L (20-31); CHLORIDE LEVEL 104 MMOL/L (98-107); CREATININE FOR GFR 0.74 MG/DL (0.55-1.30); GLOMERULAR FILTRATION RATE > 60.0 (>39); GLUCOSE, FASTING 113 MG/DL (74-106); POTASSIUM SERUM 3.6 MMOL/L (3.5-5.1); SODIUM LEVEL 140 MMOL/L (136-145)
[2022-06-07 09:32] LABS: FREE T4 1.01 NG/DL (0.89-1.76)
[2022-06-07 09:33] LABS: THYROID STIMULATING HORMONE 0.864 uIU/ML (0.55-4.78)
[2022-06-07 09:38] LABS: RSV AMPLIFICATION NEGATIVE (NEGATIVE)
[2022-06-07 09:47] LABS: APPEARANCE, URINE MANUAL CLEAR (CLEAR); BILIRUBIN, URINE MANUAL NEGATIVE (NEGATIVE); BLOOD URINE MANUAL POSITIVE (NEGATIVE); COLOR, URINE MANUAL YELLOW (YELLOW); GLUCOSE, URINE (UA) MANUAL NEGATIVE (NEGATIVE); KETONE, URINE MANUAL 2+ mg/dL (NEGATIVE); LEUKOCYTE ESTERASE, URINE MAN NEGATIVE (NEGATIVE); NITRITE, URINE MANUAL NEGATIVE (NEGATIVE); PROTEIN, URINE MANUAL NEGATIVE (NEGATIVE); UROBILINOGEN, URINE MANUAL NORMAL (NORMAL)
[2022-06-07] MEDS ORDERED: ACETAMINOPHEN TAB 650MG DOSE (2X325MG) PO ONE (09:50)
[2022-06-07] MEDS ORDERED: BOOSTRIX/ADACEL VACCINE (DIPHTH/PERTUSS/ACELL/TETANUS) 0.5ML SYR IM ONE (09:50)
[2022-06-07] MEDS ORDERED: LIDOCAINE 5% (LIDODERM) PATCH TD ONE (09:50)
[2022-06-07 09:51] VITALS: BP 158/78
[2022-06-07 09:59] LABS: ALBUMIN 4.1 G/DL (3.2-5.2); ALKALINE PHOSPHATASE 108 U/L (46-116); ALT/SGPT 64 U/L (7.0-40); AST/SGOT 56 U/L (<34); BILIRUBIN,DIRECT 0.4 MG/DL (<0.4); BILIRUBIN,TOTAL 1.1 MG/DL (0.3-1.2); TOTAL PROTEIN 7.5 G/DL (5.7-8.2)
[2022-06-07 10:18] LABS: RBC, URINE 20-30 /hpf (0-3)
[2022-06-07 10:19] LABS: BACTERIA, URINE NONE SEEN; HYALINE CAST, URINE NONE SEEN /lpf (0-1); SQUAMOUS EPITHELIAL CELL URINE MOD AMOUNT /hpf (SMALL AMT); WBC, URINE 0-1 /hpf (0-3)
[2022-06-07 10:59] LABS: PARTIAL THROMBOPLASTIN TIME 29.7 SECONDS (24.8-34.2); PROTHROMBIN TIME 13.4 SECONDS (12.5-14.5)
== END 2022-06-07 11:12 | disposition left against medical advice (07) ==
LOC: M ED 19:25
DX: M54.50 Low back pain, unspecified (principal); I44.7 Left bundle-branch block, unspecified; F10.10 Alcohol abuse, uncomplicated; G43.909 Migraine, unspecified, not intractable, without status migrainosus; Z87.442 Personal history of urinary calculi; E55.9 Vitamin D deficiency, unspecified; Z88.1 Allergy status to other antibiotic agents; Z79.899 Other long term (current) drug therapy; Z53.9 Procedure and treatment not carried out, unspecified reason

== ENCOUNTER → 2022-06-26 | Outpatient (REF) | payer MEDICARE ==
[2022-06-26 16:53] LABS: PERCENT SATURATION 35.6 % (13.2-45.0)
[2022-06-26 16:56] LABS: FERRITIN 111.5 NG/ML (7.3-270.7)
== END ==
LOC: M LAB REF 16:03
PROVIDERS: ATTEND Internal Medicine
DX: D50.9 Iron deficiency anemia, unspecified (principal); D51.9 Vitamin B12 deficiency anemia, unspecified

== ENCOUNTER → 2022-08-25 | Outpatient (CLI) | payer MEDICARE ==
[~2022-08-25] MED LIST changes: -OXYC-403 PO; +OXYC-673 PO
[2022-08-25 17:23] LABS: BASO % 0.4 % (0.0-1.0); HEMATOCRIT 38.1 % (36.0-47.0); HEMOGLOBIN 12.5 g/dl (12.0-15.5); LYMPH # 1.5 10^3/uL (1.5-5.0); LYMPH % 30.9 % (24.0-44.0); MEAN CORPUSCULAR HEMOGLOBIN 30.7 pg (27.0-33.0); MEAN CORPUSCULAR HGB CONC 32.8 g/dl (32.0-36.5); MEAN CORPUSCULAR VOLUME 93.6 fl (80.0-96.0); MONO # 0.5 10^3/uL (0.0-0.8); MONO % 11.2 % (2.0-8.0); NEUTROPHILS # 2.7 10^3/uL (1.5-8.5); NEUTROPHILS % 57.3 % (36.0-66.0); PLATELET COUNT, AUTOMATED 231 10^3/uL (150-450); RED BLOOD COUNT 4.07 10^6/uL (4.00-5.40); WHITE BLOOD COUNT 4.8 10^3/uL (4.0-10.0)
[2022-08-25 17:39] LABS: ERYTHROCYTE SEDIMENTATION RATE 32 mm/hr (0-30)
== END ==
LOC: M PLALAB 16:13
PROVIDERS: ATTEND Orthopaedic Surgery
DX: S82.51XS Displaced fracture of medial malleolus of right tibia, sequela (principal); M19.071 Primary osteoarthritis, right ankle and foot

== ENCOUNTER 2022-09-12 05:29 | Emergency (ER) | payer MEDICARE ==
[~2022-09-12] VITALS: Ht 152.4 cm; Wt 72.0 kg
[2022-09-12] MEDS ORDERED: HYDR-3363 (05:35)
[2022-09-12 08:12] LABS: BASO % 0.1 % (0.0-1.0); HEMATOCRIT 42.3 % (36.0-47.0); HEMOGLOBIN 14.4 g/dl (12.0-15.5); LYMPH # 0.8 10^3/uL (1.5-5.0); LYMPH % 11.4 % (24.0-44.0); MEAN CORPUSCULAR HEMOGLOBIN 30.6 pg (27.0-33.0); MEAN CORPUSCULAR VOLUME 89.8 fl (80.0-96.0); MONO # 0.4 10^3/uL (0.0-0.8); MONO % 6.1 % (2.0-8.0); NEUTROPHILS # 5.5 10^3/uL (1.5-8.5); NEUTROPHILS % 81.1 % (36.0-66.0); PLATELET COUNT, AUTOMATED 232 10^3/uL (150-450); RED BLOOD COUNT 4.71 10^6/uL (4.00-5.40); WHITE BLOOD COUNT 6.7 10^3/uL (4.0-10.0)
[2022-09-12] MEDS ORDERED: KETOROLAC 30 MG/ML 1ML VIAL IV ONE (08:20)
[2022-09-12 08:27] LABS: INR 0.99; PARTIAL THROMBOPLASTIN TIME 29.7 SECONDS (24.8-34.2); PROTHROMBIN TIME 13.3 SECONDS (12.5-14.5)
[2022-09-12 08:31] LABS: ETHYL ALCOHOL (ETHANOL) 0.006 % (0.000-0.010)
[2022-09-12 08:33] LABS: ALBUMIN 4.2 G/DL (3.2-5.2); BILIRUBIN,DIRECT 0.3 MG/DL (<0.4); TOTAL PROTEIN 7.7 G/DL (5.7-8.2)
[2022-09-12 08:52] LABS: RSV AMPLIFICATION NEGATIVE (NEGATIVE)
[2022-09-12] MEDS ORDERED: PERCOCET 5MG/325MG TAB PO ONE (10:50)
[2022-09-12 12:00] VITALS: BP 178/90
[2022-09-12] MEDS ORDERED: HYDR-4571 PO (12:02)
[2022-09-12] MEDS ORDERED: KETO10TAB PO (12:02)
== END 2022-09-12 12:32 | disposition home or self-care (01) ==
LOC: EDBD 05:29 → M ED 05:29
DX: S09.90XA Unspecified injury of head, initial encounter (principal); S90.921A Unspecified superficial injury of right foot, initial encounter; W01.0XXA Fall on same level from slipping, tripping and stumbling without subsequent striking against object, initial encounter; M19.071 Primary osteoarthritis, right ankle and foot; F10.10 Alcohol abuse, uncomplicated; G43.909 Migraine, unspecified, not intractable, without status migrainosus; Z88.1 Allergy status to other antibiotic agents; Y92.009 Unspecified place in unspecified non-institutional (private) residence as the place of occurrence of the external cause; Z79.899 Other long term (current) drug therapy
CPT/HCPCS: 70450; 70486; 72125; 73610; 73630; 80047; 80076; 82077; 83690; 85025; 85610; 85730; 87631; 93041; 96374; 99284; J1885

== ENCOUNTER 2023-02-19 14:59 | Emergency (ER) | payer MEDICARE ==
[~2023-02-19] VITALS: Ht 157.5 cm; Wt 70.7 kg
[~2023-02-19 14:59] MED LIST changes: +HYDR-3363; +HYDR-4571 PO; +KETO10TAB PO; +SENN-111 PO; -SENN18TA PO
[2023-02-19 16:00] LABS: BASO % 0.4 % (0.0-1.0); EOS # 0.1 10^3/uL (0.0-0.5); HEMATOCRIT 41.9 % (36.0-47.0); HEMOGLOBIN 14.4 g/dl (12.0-15.5); LYMPH # 0.7 10^3/uL (1.5-5.0); LYMPH % 6.8 % (24.0-44.0); MEAN CORPUSCULAR HEMOGLOBIN 31.1 pg (27.0-33.0); MEAN CORPUSCULAR HGB CONC 34.4 g/dl (32.0-36.5); MEAN CORPUSCULAR VOLUME 90.5 fl (80.0-96.0); MONO # 0.9 10^3/uL (0.0-0.8); MONO % 9.6 % (2.0-8.0); NEUTROPHILS # 7.9 10^3/uL (1.5-8.5); NEUTROPHILS % 81.7 % (36.0-66.0); PLATELET COUNT, AUTOMATED 195 10^3/uL (150-450); RED BLOOD COUNT 4.63 10^6/uL (4.00-5.40); WHITE BLOOD COUNT 9.7 10^3/uL (4.0-10.0)
[2023-02-19 16:24] LABS: BLOOD UREA NITROGEN 15 MG/DL (9-23); CALCIUM LEVEL 9.2 MG/DL (8.3-10.6); CARBON DIOXIDE LEVEL 30 MMOL/L (20-31); CHLORIDE LEVEL 101 MMOL/L (98-107); GLOMERULAR FILTRATION RATE > 60.0 (>39); GLUCOSE, FASTING 138 MG/DL (74-106); POTASSIUM SERUM 4.2 MMOL/L (3.5-5.1); SODIUM LEVEL 137 MMOL/L (136-145)
[2023-02-19 17:49] LABS: RSV AMPLIFICATION NEGATIVE (NEGATIVE)
[2023-02-19] MEDS ORDERED: NS 1,000 ML IV ONE (18:20)
[2023-02-19] MEDS ORDERED: PROCHLORPERAZINE 10MG 2ML VIAL IV ONE (18:20)
[2023-02-19] MEDS ORDERED: KETOROLAC 30 MG/ML 1ML VIAL IV ONE (18:20)
[2023-02-19] MEDS ORDERED: ISOVUE-370 76% 100ML VIAL As Ordered ONE (18:27)
[2023-02-19 19:15] LABS: D-DIMER QUANT 1.68 ug/mL (<0.5); INR 1.21
[2023-02-19 19:22] LABS: CK-MB VALUE MASS < 1.0 NG/ML (<3.6); ETHYL ALCOHOL (ETHANOL) < 0.003 % (0.000-0.010); MAGNESIUM LEVEL 1.8 MG/DL (1.8-2.4)
[2023-02-19 19:25] LABS: CPK CREATINE PHOSPHOKINASE 62 U/L (34-145); MB/CK RELATIVE INDEX 1.61 (< OR =4)
[2023-02-19 21:28] VITALS: BP 132/62; TEMP 98; O2SAT 95
== END 2023-02-19 21:53 | disposition home or self-care (01) ==
LOC: M ED 14:59
DX: G43.909 Migraine, unspecified, not intractable, without status migrainosus (principal); I44.4 Left anterior fascicular block; I49.1 Atrial premature depolarization; E11.9 Type 2 diabetes mellitus without complications; I10 Essential (primary) hypertension; F41.9 Anxiety disorder, unspecified; F32.A Depression, unspecified; F10.10 Alcohol abuse, uncomplicated; Z87.442 Personal history of urinary calculi; Z88.1 Allergy status to other antibiotic agents; Z79.82 Long term (current) use of aspirin; Z79.899 Other long term (current) drug therapy
CPT/HCPCS: 70450; 70496; 70498; 71045; 80048; 80180; 82077; 82550; 82553; 83605; 83735; 84484; 85025; 85379; 85610; 85730; 87631; 93005; 96361; 96374; 96375; 99284; J0780; J1885; Q9967

== ENCOUNTER 2023-04-03 07:36 | Inpatient (IN) | payer MEDICARE ==
[~2023-04-03] VITALS: Ht 162.6 cm; Wt 68.2 kg
[~2023-04-03 07:36] MED LIST changes: +CEFD300CAP PO; +CULT10CA4 PO; +JANU100T PO; +LEVE250T5 PO; +LIDO5TD TD; +LISI20TA33 PO; +NARC1SPR NARES; +SUMA25TA3 PO
[2023-04-03] MEDS ORDERED: NS 1,000 ML IV ONE (08:20)
[2023-04-03] MEDS ORDERED: LIDOCAINE 5% (LIDODERM) PATCH TD ONE (08:20)
[2023-04-03] MEDS ORDERED: ACETAMINOPHEN *IV* 500 MG in IV 1 EA IV ONE (08:20)
[2023-04-03 09:18] LABS: BASO % 0.1 % (0.0-1.0); HEMATOCRIT 33.7 % (36.0-47.0); HEMOGLOBIN 11.4 g/dl (12.0-15.5); LYMPH # 0.3 10^3/uL (1.5-5.0); LYMPH % 3.7 % (24.0-44.0); MEAN CORPUSCULAR HEMOGLOBIN 31.4 pg (27.0-33.0); MEAN CORPUSCULAR HGB CONC 33.8 g/dl (32.0-36.5); MEAN CORPUSCULAR VOLUME 92.8 fl (80.0-96.0); MONO # 0.6 10^3/uL (0.0-0.8); MONO % 8.1 % (2.0-8.0); NEUTROPHILS # 6.2 10^3/uL (1.5-8.5); NEUTROPHILS % 87.7 % (36.0-66.0); PLATELET COUNT, AUTOMATED 121 10^3/uL (150-450); RED BLOOD COUNT 3.63 10^6/uL (4.00-5.40); WHITE BLOOD COUNT 7.1 10^3/uL (4.0-10.0)
[2023-04-03 09:24] LABS: ERYTHROCYTE SEDIMENTATION RATE 44 mm/hr (0-30)
[2023-04-03 09:30] LABS: INR 1.08; PROTHROMBIN TIME 13.6 SECONDS (12.5-14.5)
[2023-04-03 09:44] LABS: ETHYL ALCOHOL (ETHANOL) 0.005 % (0.000-0.010); LIPASE 23 U/L (12-53)
[2023-04-03 09:45] LABS: CPK CREATINE PHOSPHOKINASE 188 U/L (34-145)
[2023-04-03 09:46] LABS: ALBUMIN 3.5 G/DL (3.2-5.2); ALKALINE PHOSPHATASE 94 U/L (46-116); ALT/SGPT 42 U/L (7.0-40); AST/SGOT 52 U/L (<34); BILIRUBIN,DIRECT 0.3 MG/DL (<0.4); BILIRUBIN,TOTAL 0.5 MG/DL (0.3-1.2); BLOOD UREA NITROGEN 17 MG/DL (9-23); CALCIUM LEVEL 8.6 MG/DL (8.3-10.6); CARBON DIOXIDE LEVEL 26 MMOL/L (20-31); CHLORIDE LEVEL 104 MMOL/L (98-107); CK-MB VALUE MASS 3.5 NG/ML (<3.6); CREATININE FOR GFR 0.63 MG/DL (0.55-1.30); GLOMERULAR FILTRATION RATE > 60.0 (>39); GLUCOSE, FASTING 221 MG/DL (74-106); MB/CK RELATIVE INDEX 1.86 (< OR =4); POTASSIUM SERUM 3.9 MMOL/L (3.5-5.1); SODIUM LEVEL 139 MMOL/L (136-145); TOTAL PROTEIN 6.7 G/DL (5.7-8.2)
[2023-04-03 09:54] LABS: AMPHETAMINES LEVEL URINE NEGATIVE (NEGATIVE); BARBITURATES URINE NEGATIVE (NEGATIVE); BENZODIAZEPINES URINE NEGATIVE (NEGATIVE); CANNABINOIDS URINE NEGATIVE (NEGATIVE); COCAINE METABOLITE URINE NEGATIVE (NEGATIVE); METHADONE URINE NEGATIVE (NEGATIVE); PHENCYCLIDINE URINE NEGATIVE (NEGATIVE)
[2023-04-03 09:56] LABS: OPIATES URINE POSITIVE (NEGATIVE)
[2023-04-03] MEDS ORDERED: PANTOPRAZOLE 40MG VIAL IV ONE (10:10)
[2023-04-03] MEDS ORDERED: ASPIRIN 81MG CHEW TABLET PO ONE (10:15)
[2023-04-03 10:16] LABS: RSV AMPLIFICATION NEGATIVE (NEGATIVE)
[2023-04-03] MEDS ORDERED: ISOVUE-370 76% 100ML VIAL As Ordered ONE (10:19)
[2023-04-03 10:48] LABS: CK-MB VALUE MASS 3.6 NG/ML (<3.6)
[2023-04-03 10:49] LABS: MB/CK RELATIVE INDEX 2.11 (< OR =4)
[2023-04-03] MEDS ORDERED: MORPHINE 4 MG/ML 1ML VIAL IV ONE (11:55)
[2023-04-03 12:17] LABS: PROCALCITONIN 0.79 ng/ml
[2023-04-03] MEDS ORDERED: MED REC IN PROGRESS XX SCH (14:15)
[2023-04-03] MEDS ORDERED: HOME MED LIST COMPLETE! XX SCH (14:45)
[2023-04-03] MEDS ORDERED: SUMAtriptan SUCCINATE 25 MG TAB PO PRN (15:05)
[2023-04-03] MEDS: dexAMETHasone 2 MG TAB PO SCH (15:08)
[2023-04-03] MEDS: CEFEPIME HCL 2 GM in D5W MINI-BAG PLUS 50 ML IV SCH (15:08)
[2023-04-03] MEDS: AZITHROMYCIN 250MG TABLET PO SCH (15:08)
[2023-04-03] MEDS ORDERED: VANCOMYCIN HCL 1,000 MG, VIAL MATE ADAPTER 1 EACH in D5W 250 ML IV ONE (16:00)
[2023-04-03] MEDS ORDERED: LORazepam 1 MG TAB PO PRN (16:10)
[2023-04-03] MEDS ORDERED: GLUCAGON INJ 1MG VIAL SC PRN (16:25)
[2023-04-03] MEDS ORDERED: DEXTROSE 50% 50ML SYRINGE IV PRN (16:25)
[2023-04-03] MEDS ORDERED: GLUCOSE 4GM CHEW TABLET PO PRN (16:25)
[2023-04-03 17:00] VITALS: BP 141/66; TEMP 97.4; O2SAT 90
[2023-04-03] MEDS ORDERED: REMDESIVIR 200 MG in NS 250 ML IV ONE (17:00)
[2023-04-03] MEDS: NORCO, ANEXSIA 5/325MG TABLET (HYDROcodone/ACETAMINOPHEN) PO PRN (17:45)
[2023-04-03] MEDS: THIAMINE 100 MG TAB PO SCH (18:31)
[2023-04-03] MEDS: INSULIN LISPRO (NovoLOG) PER UNIT SC SCH ×2 (18:35→20:33)
[2023-04-03 19:20] VITALS: BP 140/65; TEMP 97.6; O2SAT 90
[2023-04-03] MEDS: AMITRIPTYLINE 50 MG TAB PO SCH (20:32)
[2023-04-03] MEDS: levETIRAcetam 250MG TABLET (KEPPRA) PO SCH (20:32)
[2023-04-03] MEDS: DIVALPROEX 250MG TAB PO SCH (20:32)
[2023-04-03] MEDS: DULoxetine 30MG CAPSULE (CYMBALTA) PO SCH (20:32)
[2023-04-03] MEDS: LIDOCAINE 5% (LIDODERM) PATCH TD SCH (20:33)
[2023-04-03 22:00] VITALS: BP 148/67
[2023-04-03] MEDS ORDERED: VANCOMYCIN HCL 1,000 MG, VIAL MATE ADAPTER 1 EACH in D5W 250 ML IV SCH (22:00)
[2023-04-04] VITALS (10 sets, daily range): BP systolic 117–182; BP diastolic 57–84; TEMP 97–98.2; O2SAT 91–95
[2023-04-04] MEDS: CEFEPIME HCL 2 GM in D5W MINI-BAG PLUS 50 ML IV SCH ×3 (00:33→17:42)
[2023-04-04] MEDS ORDERED: hydrALAZINE 20MG/ML 1ML VIAL IV ONE ×2 (03:35→04:55)
[2023-04-04 07:15] LABS: HEMATOCRIT 34.8 % (36.0-47.0); HEMOGLOBIN 11.5 g/dl (12.0-15.5); MEAN CORPUSCULAR HEMOGLOBIN 31.2 pg (27.0-33.0); MEAN CORPUSCULAR VOLUME 94.3 fl (80.0-96.0); PLATELET COUNT, AUTOMATED 125 10^3/uL (150-450); RED BLOOD COUNT 3.69 10^6/uL (4.00-5.40); WHITE BLOOD COUNT 6.9 10^3/uL (4.0-10.0)
[2023-04-04 07:45] LABS: ALBUMIN 3.2 G/DL (3.2-5.2); ALKALINE PHOSPHATASE 102 U/L (46-116); ALT/SGPT 97 U/L (7.0-40); AST/SGOT 98 U/L (<34); BILIRUBIN,TOTAL 0.5 MG/DL (0.3-1.2); BLOOD UREA NITROGEN 16 MG/DL (9-23); CALCIUM LEVEL 8.7 MG/DL (8.3-10.6); CARBON DIOXIDE LEVEL 28 MMOL/L (20-31); CHLORIDE LEVEL 104 MMOL/L (98-107); CREATININE FOR GFR 0.64 MG/DL (0.55-1.30); GLOMERULAR FILTRATION RATE > 60.0 (>39); GLUCOSE, FASTING 107 MG/DL (74-106); POTASSIUM SERUM 3.8 MMOL/L (3.5-5.1); SODIUM LEVEL 140 MMOL/L (136-145); TOTAL PROTEIN 6.5 G/DL (5.7-8.2)
[2023-04-04] MEDS: FOLIC ACID 1MG TAB PO SCH (08:00)
[2023-04-04] MEDS: INSULIN LISPRO (NovoLOG) PER UNIT SC SCH ×4 (08:00→21:00)
[2023-04-04] MEDS ORDERED: NS 1,000 ML IV ONE (08:05)
[2023-04-04] MEDS ORDERED: METOCLOPRAMIDE INJ 10MG/2ML VIAL IV ONE (08:05)
[2023-04-04] MEDS ORDERED: KETOROLAC 30 MG/ML 1ML VIAL IV ONE (08:05)
[2023-04-04] MEDS ORDERED: diphenhydrAMINE 50MG/ML VIAL IV ONE (08:05)
[2023-04-04] MEDS ORDERED: SITagliptin 50 MG TAB (JANUVIA) PO SCH (09:00)
[2023-04-04] MEDS: AZITHROMYCIN 250MG TABLET PO SCH (09:23)
[2023-04-04] MEDS: MULTIVITAMINS/MINERALS THERAP 1 TAB PO SCH (09:23)
[2023-04-04] MEDS: DULoxetine 30MG CAPSULE (CYMBALTA) PO SCH ×2 (09:23→20:47)
[2023-04-04] MEDS: THIAMINE 100 MG TAB PO SCH ×2 (09:24→20:47)
[2023-04-04] MEDS: CYANOCOBALAMIN 500 MCG TAB PO SCH (09:24)
[2023-04-04] MEDS: dexAMETHasone 2 MG TAB PO SCH (09:24)
[2023-04-04] MEDS: levETIRAcetam 250MG TABLET (KEPPRA) PO SCH ×2 (09:25→20:47)
[2023-04-04] MEDS: METOPROLOL SUCC (TopROL XL) 50MG **XL** TAB PO SCH (09:36)
[2023-04-04] MEDS: ENOXAPARIN 40MG/0.4ML SYRINGE (J1650 PER 10MG) SC SCH (09:36)
[2023-04-04] MEDS: NORCO, ANEXSIA 5/325MG TABLET (HYDROcodone/ACETAMINOPHEN) PO PRN ×2 (15:03→22:21)
[2023-04-04] MEDS: LIDOCAINE 5% (LIDODERM) PATCH TD SCH (18:10)
[2023-04-04] MEDS: REMDESIVIR 100 MG in NS 250 ML IV SCH (18:28)
[2023-04-04] MEDS: DIVALPROEX 250MG TAB PO SCH (20:47)
[2023-04-04] MEDS: AMITRIPTYLINE 50 MG TAB PO SCH (20:47)
[2023-04-05] MEDS: CEFEPIME HCL 2 GM in D5W MINI-BAG PLUS 50 ML IV SCH ×2 (00:47→08:47)
[2023-04-05 03:00] VITALS: BP 145/72; TEMP 96.2; O2SAT 93
[2023-04-05 06:00] VITALS: BP 151/70
[2023-04-05 07:43] VITALS: BP 142/69; TEMP 98; O2SAT 93
[2023-04-05 07:53] LABS: HEMATOCRIT 30.4 % (36.0-47.0); HEMOGLOBIN 10.2 g/dl (12.0-15.5); MEAN CORPUSCULAR HEMOGLOBIN 31.9 pg (27.0-33.0); MEAN CORPUSCULAR HGB CONC 33.6 g/dl (32.0-36.5); PLATELET COUNT, AUTOMATED 124 10^3/uL (150-450); WHITE BLOOD COUNT 3.6 10^3/uL (4.0-10.0)
[2023-04-05 08:00] VITALS: BP 141/67
[2023-04-05] MEDS ORDERED: LACTOBACILLUS ACIDOPHILUS CAP (BACID) PO SCH (08:00)
[2023-04-05 08:11] LABS: ALBUMIN 2.7 G/DL (3.2-5.2); ALKALINE PHOSPHATASE 77 U/L (46-116); ALT/SGPT 73 U/L (7.0-40); AST/SGOT 60 U/L (<34); BILIRUBIN,TOTAL 0.4 MG/DL (0.3-1.2); BLOOD UREA NITROGEN 25 MG/DL (9-23); CALCIUM LEVEL 8.2 MG/DL (8.3-10.6); CARBON DIOXIDE LEVEL 26 MMOL/L (20-31); CHLORIDE LEVEL 109 MMOL/L (98-107); CREATININE FOR GFR 0.64 MG/DL (0.55-1.30); GLOMERULAR FILTRATION RATE > 60.0 (>39); GLUCOSE, FASTING 122 MG/DL (74-106); POTASSIUM SERUM 3.9 MMOL/L (3.5-5.1); SODIUM LEVEL 142 MMOL/L (136-145); TOTAL PROTEIN 5.7 G/DL (5.7-8.2)
[2023-04-05 08:20] LABS: LYMPHOCYTES 11 % (16-44); MONOCYTES 12 % (0-5); NEUTROPHILS 71 % (28-66)
[2023-04-05 08:21] LABS: ANISOCYTOSIS 1+; PLATELET ESTIMATE DECREASED (NORMAL)
[2023-04-05] MEDS: DULoxetine 30MG CAPSULE (CYMBALTA) PO SCH ×2 (08:43→21:10)
[2023-04-05] MEDS: dexAMETHasone 2 MG TAB PO SCH (08:43)
[2023-04-05] MEDS: levETIRAcetam 250MG TABLET (KEPPRA) PO SCH ×2 (08:44→21:11)
[2023-04-05] MEDS: THIAMINE 100 MG TAB PO SCH ×2 (08:44→21:12)
[2023-04-05] MEDS: FOLIC ACID 1MG TAB PO SCH (08:44)
[2023-04-05] MEDS: MULTIVITAMINS/MINERALS THERAP 1 TAB PO SCH (08:45)
[2023-04-05] MEDS: METOPROLOL SUCC (TopROL XL) 50MG **XL** TAB PO SCH (08:45)
[2023-04-05] MEDS: AZITHROMYCIN 250MG TABLET PO SCH (08:46)
[2023-04-05] MEDS: CYANOCOBALAMIN 500 MCG TAB PO SCH (08:46)
[2023-04-05] MEDS: ENOXAPARIN 40MG/0.4ML SYRINGE (J1650 PER 10MG) SC SCH (08:47)
[2023-04-05] MEDS: INSULIN LISPRO (NovoLOG) PER UNIT SC SCH ×4 (08:48→21:00)
[2023-04-05] MEDS: NORCO, ANEXSIA 5/325MG TABLET (HYDROcodone/ACETAMINOPHEN) PO PRN (10:32)
[2023-04-05 12:20] VITALS: BP 127/65; TEMP 98.2; O2SAT 96
[2023-04-05] MEDS: DAPAGLIFLOZIN PROPANEDIOL 10MG TABLET (FARXIGA) PO SCH (12:23)
[2023-04-05] MEDS: LevoFLOXacin 750 MG TABLET PO SCH (13:11)
[2023-04-05] MEDS: LACTOBACILLUS ACIDOPHILUS CAP (BACID) PO SCH ×2 (17:16→21:10)
[2023-04-05] MEDS: REMDESIVIR 100 MG in NS 250 ML IV SCH (17:17)
[2023-04-05] MEDS: AMITRIPTYLINE 50 MG TAB PO SCH (21:10)
[2023-04-05] MEDS: DIVALPROEX 250MG TAB PO SCH (21:10)
[2023-04-05] MEDS: LIDOCAINE 5% (LIDODERM) PATCH TD SCH (21:12)
[2023-04-05 22:00] VITALS: BP 155/77; TEMP 98; O2SAT 97
[2023-04-06] MEDS: NORCO, ANEXSIA 5/325MG TABLET (HYDROcodone/ACETAMINOPHEN) PO PRN (01:10)
[2023-04-06] MEDS: LevoFLOXacin 750 MG TABLET PO SCH (05:50)
[2023-04-06 06:00] VITALS: BP 141/83; TEMP 97.9; O2SAT 96
[2023-04-06 06:12] LABS: HEMATOCRIT 33.3 % (36.0-47.0); MEAN CORPUSCULAR HEMOGLOBIN 31.8 pg (27.0-33.0); MEAN CORPUSCULAR VOLUME 96.2 fl (80.0-96.0); PLATELET COUNT, AUTOMATED 143 10^3/uL (150-450); RED BLOOD COUNT 3.46 10^6/uL (4.00-5.40); WHITE BLOOD COUNT 6.6 10^3/uL (4.0-10.0)
[2023-04-06 06:38] LABS: LYMPHOCYTES 8 % (16-44); MONOCYTES 6 % (0-5); NEUTROPHILS 74 % (28-66)
[2023-04-06 06:40] LABS: PLATELET ESTIMATE NORMAL (NORMAL)
[2023-04-06 06:44] LABS: BLOOD UREA NITROGEN 24 MG/DL (9-23); CALCIUM LEVEL 8.4 MG/DL (8.3-10.6); CARBON DIOXIDE LEVEL 25 MMOL/L (20-31); CHLORIDE LEVEL 106 MMOL/L (98-107); CHOLESTEROL LEVEL 117 MG/DL (<200); CHOLESTEROL RISK RATIO 3.12 (<5); CREATININE FOR GFR 0.72 MG/DL (0.55-1.30); GLOMERULAR FILTRATION RATE > 60.0 (>39); GLUCOSE, FASTING 100 MG/DL (74-106); HDL CHOLESTEROL 37.4 MG/DL (>40); LDL CHOLESTEROL 64.6 MG/DL (<100); NON-HDL-C 79.6 MG/DL; POTASSIUM SERUM 3.9 MMOL/L (3.5-5.1); SODIUM LEVEL 141 MMOL/L (136-145); TRIGLYCERIDES LEVEL 75 MG/DL (<150)
[2023-04-06] MEDS: INSULIN LISPRO (NovoLOG) PER UNIT SC SCH ×4 (07:30→20:21)
[2023-04-06] MEDS: LACTOBACILLUS ACIDOPHILUS CAP (BACID) PO SCH ×4 (08:19→20:31)
[2023-04-06] MEDS: ENOXAPARIN 40MG/0.4ML SYRINGE (J1650 PER 10MG) SC SCH (08:19)
[2023-04-06] MEDS: DAPAGLIFLOZIN PROPANEDIOL 10MG TABLET (FARXIGA) PO SCH (08:20)
[2023-04-06] MEDS: THIAMINE 100 MG TAB PO SCH (08:20)
[2023-04-06] MEDS: FOLIC ACID 1MG TAB PO SCH (08:20)
[2023-04-06] MEDS: DULoxetine 30MG CAPSULE (CYMBALTA) PO SCH ×2 (08:20→20:32)
[2023-04-06] MEDS: METOPROLOL SUCC *XL* 25MG TAB (TopROL *XL*) PO SCH (08:20)
[2023-04-06] MEDS: MULTIVITAMINS/MINERALS THERAP 1 TAB PO SCH (08:20)
[2023-04-06] MEDS: CYANOCOBALAMIN 500 MCG TAB PO SCH (08:21)
[2023-04-06] MEDS: levETIRAcetam 250MG TABLET (KEPPRA) PO SCH ×2 (08:21→20:31)
[2023-04-06] MEDS ORDERED: FARX1TAB3 PO ×2 (08:43→13:15)
[2023-04-06] MEDS ORDERED: FOLI1TAB11 PO ×2 (08:43→13:16)
[2023-04-06] MEDS ORDERED: RISATAB3 PO ×2 (08:43→13:13)
[2023-04-06] MEDS ORDERED: LEVO1TAB40 PO (08:44)
[2023-04-06] MEDS ORDERED: METO1TAB32 PO ×2 (08:44→13:15)
[2023-04-06] MEDS ORDERED: VITMTA PO (08:44)
[2023-04-06] MEDS ORDERED: FIDAXOMICIN 200 MG TAB (DIFICID) PO SCH (09:00)
[2023-04-06 10:45] LABS: CLOSTRIDIUM DIFFICILE PCR POSITIVE (NEGATIVE)
[2023-04-06] MEDS ORDERED: DIFI200T PO (13:09)
[2023-04-06 14:00] VITALS: BP 139/75; TEMP 97.9; O2SAT 97
[2023-04-06] MEDS: REMDESIVIR 100 MG in NS 250 ML IV SCH (16:50)
[2023-04-06] MEDS: VANCOMYCIN ORAL SOL 250MG/5ML ORAL SYRINGE PO SCH (18:10)
[2023-04-06 19:43] VITALS: BP 137/71; TEMP 97.2; O2SAT 96
[2023-04-06] MEDS: AMITRIPTYLINE 50 MG TAB PO SCH (20:31)
[2023-04-06] MEDS: DIVALPROEX 250MG TAB PO SCH (20:31)
[2023-04-06] MEDS: LIDOCAINE 5% (LIDODERM) PATCH TD SCH (20:32)
[2023-04-06] MEDS ORDERED: RAMELTEON 8 MG TAB (ROZEREM) PO PRN (20:35)
[2023-04-07] MEDS: VANCOMYCIN ORAL SOL 250MG/5ML ORAL SYRINGE PO SCH ×3 (00:07→11:42)
[2023-04-07 05:21] VITALS: BP 136/71; TEMP 97.7; O2SAT 97
[2023-04-07 05:27] LABS: BASO % 0.3 % (0.0-1.0); HEMATOCRIT 34.3 % (36.0-47.0); HEMOGLOBIN 11.1 g/dl (12.0-15.5); LYMPH # 1.1 10^3/uL (1.5-5.0); LYMPH % 15.7 % (24.0-44.0); MEAN CORPUSCULAR HEMOGLOBIN 30.7 pg (27.0-33.0); MEAN CORPUSCULAR HGB CONC 32.4 g/dl (32.0-36.5); MONO # 0.5 10^3/uL (0.0-0.8); MONO % 7.5 % (2.0-8.0); NEUTROPHILS # 5.4 10^3/uL (1.5-8.5); NEUTROPHILS % 76.1 % (36.0-66.0); PLATELET COUNT, AUTOMATED 157 10^3/uL (150-450); RED BLOOD COUNT 3.61 10^6/uL (4.00-5.40); WHITE BLOOD COUNT 7.1 10^3/uL (4.0-10.0)
[2023-04-07 05:54] LABS: BLOOD UREA NITROGEN 20 MG/DL (9-23); CALCIUM LEVEL 8.2 MG/DL (8.3-10.6); CARBON DIOXIDE LEVEL 28 MMOL/L (20-31); CHLORIDE LEVEL 104 MMOL/L (98-107); CREATININE FOR GFR 0.77 MG/DL (0.55-1.30); GLOMERULAR FILTRATION RATE > 60.0 (>39); GLUCOSE, FASTING 79 MG/DL (74-106); POTASSIUM SERUM 3.6 MMOL/L (3.5-5.1); SODIUM LEVEL 142 MMOL/L (136-145)
[2023-04-07] MEDS: LevoFLOXacin 750 MG TABLET PO SCH (06:03)
[2023-04-07] MEDS: INSULIN LISPRO (NovoLOG) PER UNIT SC SCH ×2 (07:30→11:37)
[2023-04-07 08:07] VITALS: BP 137/69
[2023-04-07] MEDS: DULoxetine 30MG CAPSULE (CYMBALTA) PO SCH (08:07)
[2023-04-07] MEDS: MULTIVITAMINS/MINERALS THERAP 1 TAB PO SCH (08:07)
[2023-04-07] MEDS: LACTOBACILLUS ACIDOPHILUS CAP (BACID) PO SCH ×2 (08:07→11:42)
[2023-04-07] MEDS: DAPAGLIFLOZIN PROPANEDIOL 10MG TABLET (FARXIGA) PO SCH (08:07)
[2023-04-07] MEDS: levETIRAcetam 250MG TABLET (KEPPRA) PO SCH (08:08)
[2023-04-07] MEDS: ENOXAPARIN 40MG/0.4ML SYRINGE (J1650 PER 10MG) SC SCH (08:08)
[2023-04-07] MEDS: FOLIC ACID 1MG TAB PO SCH (08:08)
[2023-04-07] MEDS: METOPROLOL SUCC *XL* 25MG TAB (TopROL *XL*) PO SCH (08:08)
[2023-04-07] MEDS: CYANOCOBALAMIN 500 MCG TAB PO SCH (08:08)
[2023-04-07] MEDS ORDERED: VANC125C3 PO (08:38)
[2023-04-07] MEDS ORDERED: guaiFENesin ER TABLET 600 MG TAB PO SCH (09:00)
[2023-04-07] MEDS ORDERED: ASPI81TA26 PO (10:27)
[2023-04-07] MEDS ORDERED: ATOR1TAB21 PO (10:27)
[2023-04-07] MEDS ORDERED: MUCI600T31 PO (10:34)
== END 2023-04-07 13:05 | disposition home or self-care (01) | DRG 177 ==
LOC: EDBD 07:36 → M ED 07:36 → M ED INP 13:22 → ENRESERV 14:50 → M PCU 17:00 → M MSPAV 04-05 12:06
PROVIDERS: ADMIT Internal Medicine; ATTEND Internal Medicine
DX: U07.1 COVID-19 (principal); J12.82 Pneumonia due to coronavirus disease 2019; R04.2 Hemoptysis; I42.9 Cardiomyopathy, unspecified; I50.32 Chronic diastolic (congestive) heart failure; A04.72 Enterocolitis due to Clostridium difficile, not specified as recurrent; E03.9 Hypothyroidism, unspecified; I11.0 Hypertensive heart disease with heart failure; E11.40 Type 2 diabetes mellitus with diabetic neuropathy, unspecified; K21.9 Gastro-esophageal reflux disease without esophagitis; G40.909 Epilepsy, unspecified, not intractable, without status epilepticus; F41.9 Anxiety disorder, unspecified; F32.A Depression, unspecified; F10.10 Alcohol abuse, uncomplicated; G43.909 Migraine, unspecified, not intractable, without status migrainosus; I27.20 Pulmonary hypertension, unspecified; I44.7 Left bundle-branch block, unspecified; M54.9 Dorsalgia, unspecified; Z88.0 Allergy status to penicillin; Z79.899 Other long term (current) drug therapy; Z79.82 Long term (current) use of aspirin; R29.6 Repeated falls

== ENCOUNTER 2023-04-17 18:56 | Inpatient (IN) | payer MEDICARE ==
[~2023-04-17] VITALS: Ht 165.1 cm; Wt 70.7 kg
[~2023-04-17 18:56] MED LIST changes: +ASPI81TA26 PO; +ATOR1TAB21 PO; +DIFI200T PO; +FARX1TAB3 PO; +LEVO1TAB40 PO; +METO1TAB32 PO; +MUCI600T31 PO; +RISATAB3 PO; +VANC125C3 PO; +VITMTA PO
[2023-04-17] MEDS ORDERED: MORPHINE 4 MG/ML 1ML VIAL IV ONE ×2 (20:20→23:40)
[2023-04-17 21:09] LABS: BASO % 0.4 % (0.0-1.0); HEMOGLOBIN 11.9 g/dl (12.0-15.5); LYMPH # 1.4 10^3/uL (1.5-5.0); LYMPH % 28.2 % (24.0-44.0); MEAN CORPUSCULAR HEMOGLOBIN 31.5 pg (27.0-33.0); MEAN CORPUSCULAR HGB CONC 33.1 g/dl (32.0-36.5); MEAN CORPUSCULAR VOLUME 95.2 fl (80.0-96.0); MONO # 0.6 10^3/uL (0.0-0.8); MONO % 12.2 % (2.0-8.0); NEUTROPHILS # 2.8 10^3/uL (1.5-8.5); PLATELET COUNT, AUTOMATED 189 10^3/uL (150-450); RED BLOOD COUNT 3.78 10^6/uL (4.00-5.40); WHITE BLOOD COUNT 4.8 10^3/uL (4.0-10.0)
[2023-04-17 21:35] LABS: CK-MB VALUE MASS < 1.0 NG/ML (<3.6)
[2023-04-17 21:37] LABS: BLOOD UREA NITROGEN 20 MG/DL (9-23); CALCIUM LEVEL 9.1 MG/DL (8.3-10.6); CARBON DIOXIDE LEVEL 29 MMOL/L (20-31); CHLORIDE LEVEL 106 MMOL/L (98-107); CREATININE FOR GFR 0.94 MG/DL (0.55-1.30); GLOMERULAR FILTRATION RATE > 60.0 (>39); GLUCOSE, FASTING 101 MG/DL (74-106); POTASSIUM SERUM 5.4 MMOL/L (3.5-5.1); SODIUM LEVEL 141 MMOL/L (136-145)
[2023-04-17 21:39] LABS: FREE T4 1.15 NG/DL (0.89-1.76); THYROID STIMULATING HORMONE 1.675 uIU/ML (0.55-4.78)
[2023-04-17 21:41] LABS: CPK CREATINE PHOSPHOKINASE 80 U/L (34-145); MB/CK RELATIVE INDEX 1.25 (< OR =4)
[2023-04-17 22:35] VITALS: O2SAT 97
[2023-04-17] MEDS ORDERED: NS 500 ML IV ONE (23:00)
[2023-04-18] VITALS (16 sets, daily range): BP systolic 97–145; BP diastolic 49–70; TEMP 96.5–97.9; O2SAT 71–100
[2023-04-18] MEDS ORDERED: LORazepam 2 MG/ML 1ML VIAL IV STA ×2 (00:07→03:27)
[2023-04-18] MEDS ORDERED: ACETAMINOPHEN TAB 650MG DOSE (2X325MG) PO PRN (00:35)
[2023-04-18] MEDS ORDERED: HYDROMORPHONE HCL 0.5 MG/ 0.5 ML SYRINGE IV PRN (00:35)
[2023-04-18] MEDS ORDERED: GLUCOSE 4GM CHEW TABLET PO PRN (00:35)
[2023-04-18] MEDS ORDERED: GLUCAGON INJ 1MG VIAL SC PRN (00:35)
[2023-04-18] MEDS ORDERED: DEXTROSE 50% 50ML SYRINGE IV PRN (00:35)
[2023-04-18] MEDS ORDERED: levETIRAcetam INJection 500 MG in D5W MINI-BAG PLUS 100 ML IV ONE (01:05)
[2023-04-18 01:39] LABS: RSV AMPLIFICATION NEGATIVE (NEGATIVE)
[2023-04-18] MEDS ORDERED: NS 500 ML IV ONE (01:45)
[2023-04-18] MEDS ORDERED: ATOR1TAB21 PO (01:52)
[2023-04-18] MEDS ORDERED: HYDR-4571 PO (01:52)
[2023-04-18] MEDS ORDERED: OMEP40CA5 PO (01:52)
[2023-04-18] MEDS ORDERED: NARC1SPR (01:52)
[2023-04-18] MEDS ORDERED: RISATAB3 PO (01:52)
[2023-04-18] MEDS ORDERED: METO1TAB32 PO (01:52)
[2023-04-18] MEDS ORDERED: LIDO5TD TOP (01:52)
[2023-04-18] MEDS ORDERED: ASPI-161 PO (01:52)
[2023-04-18] MEDS ORDERED: VITMTA PO (01:52)
[2023-04-18] MEDS ORDERED: LISI20TA33 PO (01:52)
[2023-04-18] MEDS ORDERED: FARX1TAB3 PO (01:52)
[2023-04-18] MEDS ORDERED: THIA100T7 PO (01:52)
[2023-04-18] MEDS ORDERED: FOLI1TAB11 PO (01:52)
[2023-04-18] MEDS ORDERED: HOME MED LIST COMPLETE! XX SCH (02:00)
[2023-04-18] MEDS ORDERED: VALPROATE SOD INJ 1,000 MG in D5W 50 ML IV ONE (02:50)
[2023-04-18] MEDS ORDERED: levETIRAcetam INJection 1,000 MG in D5W 100 ML IV ONE (03:15)
[2023-04-18] MEDS ORDERED: MIDAZOLAM 100MG/100ML-0.9%NACL 100 MG in IV 1 EA IV SCH (05:30)
[2023-04-18] MEDS ORDERED: NS 1,000 ML IV SCH (05:30)
[2023-04-18] MEDS ORDERED: HEPARIN SOD (PORCINE) 5000UNITS/ML 1ML VIAL/SYRINGE SC SCH (06:00)
[2023-04-18] MEDS ORDERED: ROCURONIUM BROMIDE 50MG/5ML VIAL IV ONE (06:03)
[2023-04-18] MEDS ORDERED: propofoL 200 MG/20 ML VIAL IV ONE (06:03)
[2023-04-18 06:45] LABS: BASO % 0.4 % (0.0-1.0); HEMATOCRIT 34.5 % (36.0-47.0); HEMOGLOBIN 10.9 g/dl (12.0-15.5); LYMPH # 1.3 10^3/uL (1.5-5.0); LYMPH % 26.9 % (24.0-44.0); MEAN CORPUSCULAR HEMOGLOBIN 30.9 pg (27.0-33.0); MEAN CORPUSCULAR HGB CONC 31.6 g/dl (32.0-36.5); MEAN CORPUSCULAR VOLUME 97.7 fl (80.0-96.0); MONO # 0.6 10^3/uL (0.0-0.8); MONO % 11.9 % (2.0-8.0); NEUTROPHILS % 60.6 % (36.0-66.0); PLATELET COUNT, AUTOMATED 163 10^3/uL (150-450); RED BLOOD COUNT 3.53 10^6/uL (4.00-5.40); WHITE BLOOD COUNT 4.9 10^3/uL (4.0-10.0)
[2023-04-18] MEDS ORDERED: INSULIN LISPRO (NovoLOG) PER UNIT SC SCH ×2 (07:30→21:00)
[2023-04-18] MEDS ORDERED: levETIRAcetam INJection 500 MG in D5W MINI-BAG PLUS 100 ML IV SCH (09:00)
[2023-04-18] MEDS ORDERED: THIAMINE 100 MG TAB PO SCH (09:00)
[2023-04-18] MEDS ORDERED: FOLIC ACID 1MG TAB PO SCH (09:00)
[2023-04-18] MEDS ORDERED: MULTIVITAMINS/MINERALS THERAP 1 TAB PO SCH (09:00)
[2023-04-18] MEDS ORDERED: VALPROATE SOD INJ 500 MG in D5W 50 ML IV SCH (17:00)
[2023-04-18] MEDS ORDERED: VALPROATE SOD INJ 500 MG in D5W MINI-BAG PLUS 50 ML IV SCH (17:00)
[2023-04-18] MEDS ORDERED: levETIRAcetam INJection 1,000 MG in D5W 100 ML IV SCH (18:00)
== END 2023-04-18 09:28 | disposition short-term general hospital (02) | DRG 101 ==
LOC: EDBD 18:56 → M ED 18:56 → M ED INP 04-18 00:31 → M MSPAV 04-18 03:20 → M ICU 04-18 05:35
PROVIDERS: ADMIT Internal Medicine; ATTEND Internal Medicine
PROC: 5A1935Z Respiratory Ventilation, Less than 24 Consecutive Hours (ICD-10-PCS; principal; 2023-04-18)
DX: G40.901 Epilepsy, unspecified, not intractable, with status epilepticus (principal); I42.9 Cardiomyopathy, unspecified; E11.42 Type 2 diabetes mellitus with diabetic polyneuropathy; Z88.8 Allergy status to other drugs, medicaments and biological substances; Z79.899 Other long term (current) drug therapy; Z79.82 Long term (current) use of aspirin; F10.20 Alcohol dependence, uncomplicated; R29.6 Repeated falls; D64.9 Anemia, unspecified

== ENCOUNTER 2023-08-07 19:31 | Inpatient (IN) | payer MEDICARE ==
[~2023-08-07] VITALS: Ht 162.6 cm; Wt 62.4 kg
[2023-08-07 19:10] VITALS: BP 105/82; TEMP 103; O2SAT 92
[~2023-08-07 19:31] MED LIST changes: +ASPI-615 PO; +LIDO5TD TOP; +NARC1SPR
[2023-08-07] MEDS ORDERED: GLUCOSE 4GM CHEW TABLET PO PRN (19:35)
[2023-08-07] MEDS ORDERED: ONDANSETRON 4MG 2ML VIAL IV PRN (19:35)
[2023-08-07] MEDS ORDERED: GLUCAGON INJ 1MG VIAL SC PRN (19:35)
[2023-08-07] MEDS: NS 1,000 ML IV SCH (20:09)
[2023-08-07] MEDS: ACETAMINOPHEN *IV* 1,000 MG in IV 1 EA IV ONE (20:10)
[2023-08-07 20:51] LABS: HEMATOCRIT 32.5 % (36.0-47.0); HEMOGLOBIN 10.6 g/dl (12.0-15.5); MEAN CORPUSCULAR HEMOGLOBIN 32.3 pg (27.0-33.0); MEAN CORPUSCULAR HGB CONC 32.6 g/dl (32.0-36.5); MEAN CORPUSCULAR VOLUME 99.1 fl (80.0-96.0); RED BLOOD COUNT 3.28 10^6/uL (4.00-5.40); WHITE BLOOD COUNT 8.6 10^3/uL (4.0-10.0)
[2023-08-07 21:11] LABS: PLATELET COUNT, AUTOMATED 63 10^3/uL (150-450)
[2023-08-07 21:14] LABS: ALBUMIN 2.1 G/DL (3.2-5.2); ALKALINE PHOSPHATASE 63 U/L (46-116); ALT/SGPT < 9 U/L (7.0-40); AST/SGOT 14 U/L (<34); BILIRUBIN,TOTAL 0.5 MG/DL (0.3-1.2); BLOOD UREA NITROGEN 22 MG/DL (9-23); CALCIUM LEVEL 8.9 MG/DL (8.3-10.6); CARBON DIOXIDE LEVEL 30 MMOL/L (20-31); CHLORIDE LEVEL 109 MMOL/L (98-107); CREATININE FOR GFR 0.64 MG/DL (0.55-1.30); GLOMERULAR FILTRATION RATE > 60.0 (>39); GLUCOSE, FASTING 94 MG/DL (74-106); POTASSIUM SERUM 3.4 MMOL/L (3.5-5.1); SODIUM LEVEL 145 MMOL/L (136-145); TOTAL PROTEIN 5.2 G/DL (5.7-8.2)
[2023-08-07 21:21] LABS: PROCALCITONIN 0.85 ng/ml
[2023-08-07] MEDS: SODIUM CHLORIDE 0.9% 1000ML IV SCH (21:51)
[2023-08-07] MEDS ORDERED: DIVA500T94 PO (22:22)
[2023-08-07] MEDS ORDERED: PANT-23 PO (22:22)
[2023-08-07] MEDS ORDERED: SENN-85 PO (22:22)
[2023-08-07] MEDS ORDERED: MAGN64TASA PO (22:22)
[2023-08-07] MEDS ORDERED: ACET-907 PO (22:22)
[2023-08-07] MEDS ORDERED: ASPI81CH33 PO (22:22)
[2023-08-07] MEDS ORDERED: DOCU100C16 PO (22:22)
[2023-08-07] MEDS ORDERED: RA M10TA PO (22:22)
[2023-08-07] MEDS ORDERED: ELIQ5TAB PO (22:22)
[2023-08-07] MEDS ORDERED: TRAM50TA2 PO (22:22)
[2023-08-07] MEDS ORDERED: HOME MED LIST COMPLETE! XX SCH (22:25)
[2023-08-07 22:30] VITALS: TEMP 98.1
[2023-08-07] MEDS: VANCOMYCIN HCL 750 MG, VIAL MATE ADAPTER 1 EACH in D5W 250 ML IV ONE (23:58)
[2023-08-08] MEDS ORDERED: VALPROATE SOD INJ 500 MG in D5W 50 ML IV SCH
[2023-08-08] MEDS: INSULIN LISPRO (NovoLOG) PER UNIT SC SCH
[2023-08-08] MEDS ORDERED: HALOPERIDOL 5MG/ML 1ML VIAL IM PRN (00:15)
[2023-08-08] MEDS: VANCOMYCIN HCL 500 MG in D5W MINI-BAG PLUS 100 ML IV ONE (01:24)
[2023-08-08] MEDS: VALPROATE SOD INJ 500 MG in D5W 50 ML IV SCH (02:54)
[2023-08-08] MEDS: AZTREONAM 1 GM in D5W MINI-BAG PLUS 50 ML IV SCH (04:17)
[2023-08-08 06:38] VITALS: BP 120/70; TEMP 97.3; O2SAT 96
[2023-08-08] MEDS ORDERED: VALPROATE SOD INJ 500 MG in D5W MINI-BAG PLUS 50 ML IV SCH (07:01)
[2023-08-08 07:08] LABS: BLOOD UREA NITROGEN 17 MG/DL (9-23); CALCIUM LEVEL 8.2 MG/DL (8.3-10.6); CARBON DIOXIDE LEVEL 24 MMOL/L (20-31); CHLORIDE LEVEL 112 MMOL/L (98-107); CREATININE FOR GFR 0.56 MG/DL (0.55-1.30); GLOMERULAR FILTRATION RATE > 60.0 (>39); GLUCOSE, FASTING 124 MG/DL (74-106); POTASSIUM SERUM 3.6 MMOL/L (3.5-5.1); SODIUM LEVEL 146 MMOL/L (136-145)
[2023-08-08] MEDS: HEPARIN SOD (PORCINE) 5000UNITS/ML 1ML VIAL/SYRINGE SC SCH (08:46)
[2023-08-08] MEDS: PANTOPRAZOLE 40MG VIAL IV SCH (09:17)
[2023-08-08] MEDS: D5W 1,000 ML IV ONE (09:28)
[2023-08-08 09:39] LABS: PROLACTIN 2.58 NG/ML
[2023-08-08] MEDS ORDERED: LevoFLOXacin IV 750 MG in IV 1 EA IV SCH (10:00)
[2023-08-08 10:38] VITALS: O2SAT 91
[2023-08-08] MEDS: VANCOMYCIN HCL 1,000 MG, VIAL MATE ADAPTER 1 EACH in NS 250 ML IV SCH (11:51)
[2023-08-08 14:00] VITALS: BP 117/53; TEMP 97.5; O2SAT 92
[2023-08-08] MEDS: KCL 20MEQ IN D5W 1000ML 1,000 ML IV SCH (14:01)
[2023-08-08] MEDS: VALPROATE SOD INJ 500 MG in D5W MINI-BAG PLUS 50 ML IV SCH (15:03)
[2023-08-08] MEDS: DEXTROSE 50% 50ML SYRINGE IV PRN (17:02)
[2023-08-08 20:29] VITALS: BP 118/52; TEMP 97.5; O2SAT 93
[2023-08-09 06:38] LABS: BASO % 0.1 % (0.0-1.0); HEMATOCRIT 28.9 % (36.0-47.0); HEMOGLOBIN 9.5 g/dl (12.0-15.5); LYMPH # 0.7 10^3/uL (1.5-5.0); LYMPH % 9.4 % (24.0-44.0); MEAN CORPUSCULAR HEMOGLOBIN 31.9 pg (27.0-33.0); MEAN CORPUSCULAR HGB CONC 32.9 g/dl (32.0-36.5); MONO # 1.1 10^3/uL (0.0-0.8); MONO % 14.5 % (2.0-8.0); NEUTROPHILS # 5.7 10^3/uL (1.5-8.5); NEUTROPHILS % 75.2 % (36.0-66.0); RED BLOOD COUNT 2.98 10^6/uL (4.00-5.40); WHITE BLOOD COUNT 7.6 10^3/uL (4.0-10.0)
[2023-08-09 06:40] VITALS: BP 141/60; TEMP 97.5; O2SAT 92
[2023-08-09 06:40] LABS: PLATELET COUNT, AUTOMATED 62 10^3/uL (150-450)
[2023-08-09 06:53] LABS: BLOOD UREA NITROGEN 10 MG/DL (9-23); CALCIUM LEVEL 8.4 MG/DL (8.3-10.6); CARBON DIOXIDE LEVEL 29 MMOL/L (20-31); CHLORIDE LEVEL 108 MMOL/L (98-107); CREATININE FOR GFR 0.64 MG/DL (0.55-1.30); GLOMERULAR FILTRATION RATE > 60.0 (>39); GLUCOSE, FASTING 110 MG/DL (74-106); SODIUM LEVEL 142 MMOL/L (136-145)
[2023-08-09 08:00] VITALS: BP 140/80; TEMP 99.4
[2023-08-09 09:56] LABS: ABG BASE EXCESS 1.2 (-2.0-2.0); ABG HCO3 24.6 MMOL/L (22.0-26.0); ABG O2 SATURATION 96.4 % (95.0-99.0); ABG PARTIAL PRESSURE CO2 34.3 mmHg (35.0-45.0); ABG PARTIAL PRESSURE O2 83.6 mmHg (75.0-100.0); ABG STANDARD HCO3 25.6 MMOL/L. (22.0-26.0); ABG TOTAL CO2 25.6 MMOL/L (23.0-31.0); ABG pH (ARTERIAL) 7.473 UNITS (7.350-7.450)
[2023-08-09] MEDS: CEFEPIME HCL 2 GM in D5W MINI-BAG PLUS 50 ML IV SCH (10:41)
[2023-08-09] MEDS: KCL 10MEQ/100ML SWI (KRUN) 10 MEQ in IV 1 EA IV ONE (11:17)
[2023-08-09] MEDS: KETOROLAC 30 MG/ML 1ML VIAL IV ONE (11:18)
[2023-08-09] MEDS ORDERED: LACTULOSE 20GM/30ML SYRUP UDC PR ONE (12:00)
[2023-08-09 13:47] LABS: D-DIMER QUANT 2.37 ug/mL (<0.5); INR 1.15; PROTHROMBIN TIME 14.4 SECONDS (12.5-14.5)
[2023-08-09] MEDS: D5W 1,000 ML IV ONE (13:50)
[2023-08-09 14:00] VITALS: BP 142/55; TEMP 97.3; O2SAT 97
[2023-08-09 14:07] LABS: MAGNESIUM LEVEL 1.5 MG/DL (1.8-2.4)
[2023-08-09] MEDS: KCL 40MEQ IN D5/0.45NS 1000ML 1,000 ML IV SCH (15:00)
[2023-08-09] MEDS: LACTULOSE 20GM/30ML SYRUP UDC PR ONE (15:19)
[2023-08-09 20:00] VITALS: BP 140/55; TEMP 97; O2SAT 100
[2023-08-10] VITALS (7 sets, daily range): BP systolic 119–156; BP diastolic 53–76; TEMP 97.2–97.9; O2SAT 76–99
[2023-08-10] MEDS: MAG SULF 1GM/100ML (MAG RUN) 1 GM in IV 1 EA IV SCH (05:02)
[2023-08-10 05:12] LABS: BASO % 0.4 % (0.0-1.0); HEMATOCRIT 31.3 % (36.0-47.0); HEMOGLOBIN 10.1 g/dl (12.0-15.5); LYMPH # 0.7 10^3/uL (1.5-5.0); MEAN CORPUSCULAR HEMOGLOBIN 31.1 pg (27.0-33.0); MEAN CORPUSCULAR HGB CONC 32.3 g/dl (32.0-36.5); MEAN CORPUSCULAR VOLUME 96.3 fl (80.0-96.0); MONO # 0.8 10^3/uL (0.0-0.8); NEUTROPHILS # 3.9 10^3/uL (1.5-8.5); NEUTROPHILS % 72.9 % (36.0-66.0); RED BLOOD COUNT 3.25 10^6/uL (4.00-5.40); WHITE BLOOD COUNT 5.4 10^3/uL (4.0-10.0)
[2023-08-10 05:13] LABS: PLATELET COUNT, AUTOMATED 66 10^3/uL (150-450)
[2023-08-10 05:46] LABS: ALBUMIN 1.6 G/DL (3.2-5.2); ALKALINE PHOSPHATASE 60 U/L (46-116); ALT/SGPT 11 U/L (7.0-40); AST/SGOT 20 U/L (<34); BILIRUBIN,TOTAL 0.3 MG/DL (0.3-1.2); BLOOD UREA NITROGEN 9 MG/DL (9-23); CALCIUM LEVEL 8.4 MG/DL (8.3-10.6); CARBON DIOXIDE LEVEL 28 MMOL/L (20-31); CHLORIDE LEVEL 109 MMOL/L (98-107); CREATININE FOR GFR 0.65 MG/DL (0.55-1.30); GLOMERULAR FILTRATION RATE > 60.0 (>39); GLUCOSE, FASTING 134 MG/DL (74-106); POTASSIUM SERUM 3.1 MMOL/L (3.5-5.1); SODIUM LEVEL 143 MMOL/L (136-145); TOTAL PROTEIN 4.4 G/DL (5.7-8.2)
[2023-08-10] MEDS ORDERED: KCL 10MEQ/100ML SWI (KRUN) 10 MEQ in IV 1 EA IV SCH (06:00)
[2023-08-10] MEDS: KCL 10MEQ/100ML SWI (KRUN) 10 MEQ in IV 1 EA IV SCH (06:19)
[2023-08-10 09:14] LABS: APPEARANCE, CSF CLEAR (CLEAR); COLOR, CSF COLORLESS (COLORLESS); CSF TUBE# CELL CNT TUBE 1
[2023-08-10 09:15] LABS: APPEARANCE, CSF CLEAR (CLEAR); COLOR, CSF COLORLESS (COLORLESS); CSF TUBE# CELL CNT TUBE 4
[2023-08-10 09:53] LABS: CSF TUBE# TP TUBE 2; TOTAL PROTEIN,CSF 31.1 MG/DL (15-45)
[2023-08-10 10:11] LABS: CSF TUBE# GLU TUBE 2
[2023-08-10] MEDS: MEROPENEM INJ 1 GM in IV 1 EA IV SCH (10:20)
[2023-08-10 10:36] LABS: BLOOD UREA NITROGEN 9 MG/DL (9-23); CALCIUM LEVEL 8.1 MG/DL (8.3-10.6); CARBON DIOXIDE LEVEL 27 MMOL/L (20-31); CHLORIDE LEVEL 110 MMOL/L (98-107); CREATININE FOR GFR 0.53 MG/DL (0.55-1.30); GLOMERULAR FILTRATION RATE > 60.0 (>39); GLUCOSE, FASTING 117 MG/DL (74-106); SODIUM LEVEL 140 MMOL/L (136-145)
[2023-08-10] MEDS: D5W/0.9% SODIUM CHLORIDE 1,000 ML IV SCH (16:31)
[2023-08-11 05:18] VITALS: BP 153/63; TEMP 97.5; O2SAT 96
[2023-08-11 06:05] LABS: HEMATOCRIT 28.9 % (36.0-47.0); HEMOGLOBIN 9.6 g/dl (12.0-15.5); MEAN CORPUSCULAR HEMOGLOBIN 31.8 pg (27.0-33.0); MEAN CORPUSCULAR HGB CONC 33.2 g/dl (32.0-36.5); MEAN CORPUSCULAR VOLUME 95.7 fl (80.0-96.0); RED BLOOD COUNT 3.02 10^6/uL (4.00-5.40); WHITE BLOOD COUNT 3.5 10^3/uL (4.0-10.0)
[2023-08-11 06:06] LABS: BASO % 0.3 % (0.0-1.0); LYMPH # 0.7 10^3/uL (1.5-5.0); LYMPH % 19.3 % (24.0-44.0); MONO # 0.5 10^3/uL (0.0-0.8); MONO % 14.4 % (2.0-8.0); NEUTROPHILS # 2.3 10^3/uL (1.5-8.5); NEUTROPHILS % 65.2 % (36.0-66.0); PLATELET COUNT, AUTOMATED 72 10^3/uL (150-450)
[2023-08-11 06:54] LABS: BLOOD UREA NITROGEN 7 MG/DL (9-23); CARBON DIOXIDE LEVEL 28 MMOL/L (20-31); CHLORIDE LEVEL 114 MMOL/L (98-107); CREATININE FOR GFR 0.56 MG/DL (0.55-1.30); GLOMERULAR FILTRATION RATE > 60.0 (>39); GLUCOSE, FASTING 118 MG/DL (74-106); POTASSIUM SERUM 3.2 MMOL/L (3.5-5.1); SODIUM LEVEL 147 MMOL/L (136-145)
[2023-08-11] MEDS: KCL 40MEQ IN D5/0.45NS 1000ML 1,000 ML IV SCH (09:15)
[2023-08-11 14:00] VITALS: BP 149/67; TEMP 97.6; O2SAT 96
[2023-08-11 20:25] VITALS: BP 147/67; TEMP 97.5; O2SAT 97
[2023-08-12] VITALS (8 sets, daily range): BP systolic 116–172; BP diastolic 60–84; TEMP 97.2–101.2; O2SAT 87–96
[2023-08-12 06:23] LABS: BLOOD UREA NITROGEN < 5 MG/DL (9-23); CALCIUM LEVEL 7.9 MG/DL (8.3-10.6); CARBON DIOXIDE LEVEL 31 MMOL/L (20-31); CHLORIDE LEVEL 110 MMOL/L (98-107); CREATININE FOR GFR 0.54 MG/DL (0.55-1.30); GLOMERULAR FILTRATION RATE > 60.0 (>39); GLUCOSE, FASTING 108 MG/DL (74-106); POTASSIUM SERUM 3.5 MMOL/L (3.5-5.1); SODIUM LEVEL 145 MMOL/L (136-145)
[2023-08-12 06:27] LABS: HEMATOCRIT 26.7 % (36.0-47.0); HEMOGLOBIN 8.8 g/dl (12.0-15.5); MEAN CORPUSCULAR HEMOGLOBIN 31.8 pg (27.0-33.0); MEAN CORPUSCULAR VOLUME 96.4 fl (80.0-96.0); RED BLOOD COUNT 2.77 10^6/uL (4.00-5.40); WHITE BLOOD COUNT 4.2 10^3/uL (4.0-10.0)
[2023-08-12 06:28] LABS: BASO % 0.2 % (0.0-1.0); LYMPH % 23.2 % (24.0-44.0); MONO # 0.8 10^3/uL (0.0-0.8); MONO % 18.2 % (2.0-8.0); NEUTROPHILS # 2.4 10^3/uL (1.5-8.5); NEUTROPHILS % 56.7 % (36.0-66.0); PLATELET COUNT, AUTOMATED 83 10^3/uL (150-450)
[2023-08-12] MEDS: INSULIN LISPRO (NovoLOG) PER UNIT SC SCH (08:45)
[2023-08-12] MEDS: ACETAMINOPHEN *IV* 1,000 MG in IV 1 EA IV PRN (17:52)
[2023-08-12] MEDS ORDERED: INSULIN LISPRO (NovoLOG) PER UNIT SC SCH (21:00)
[2023-08-12] MEDS: VANCOMYCIN ORAL SOL 250MG/5ML ORAL SYRINGE PO SCH (21:00)
[2023-08-12 22:33] LABS: VENOUS BASE EXCESS 2.9 (-2.0-2.0); VENOUS HCO3 27.8 MMOL/L (23.0-27.0); VENOUS O2 SATURATION 84.6 % (60.0-80.0); VENOUS PARTIAL PRESSURE CO2 44.2 mmHg (38.0-50.0); VENOUS PARTIAL PRESSURE O2 49.7 mmHg (30.0-50.0); VENOUS PH 7.416 UNITS (7.330-7.430); VENOUS STANDARD HCO3 26.8 MMOL/L; VENOUS TOTAL CO2 29.1 MMOL/L (24.0-28.0)
[2023-08-12 22:46] LABS: HEMATOCRIT 26.9 % (36.0-47.0); HEMOGLOBIN 8.7 g/dl (12.0-15.5); MEAN CORPUSCULAR HEMOGLOBIN 30.9 pg (27.0-33.0); MEAN CORPUSCULAR HGB CONC 32.3 g/dl (32.0-36.5); MEAN CORPUSCULAR VOLUME 95.4 fl (80.0-96.0); RED BLOOD COUNT 2.82 10^6/uL (4.00-5.40); WHITE BLOOD COUNT 9.5 10^3/uL (4.0-10.0)
[2023-08-12 22:47] LABS: LYMPH % 9.7 % (24.0-44.0); MONO % 9.9 % (2.0-8.0); PLATELET COUNT, AUTOMATED 102 10^3/uL (150-450)
[2023-08-12 22:48] LABS: BASO % 0.2 % (0.0-1.0); LYMPH # 0.9 10^3/uL (1.5-5.0); MONO # 0.9 10^3/uL (0.0-0.8); NEUTROPHILS # 7.5 10^3/uL (1.5-8.5)
[2023-08-12 23:07] LABS: ALBUMIN 1.7 G/DL (3.2-5.2); ALKALINE PHOSPHATASE 55 U/L (46-116); ALT/SGPT < 9 U/L (7.0-40); AST/SGOT 12 U/L (<34); BILIRUBIN,TOTAL 0.3 MG/DL (0.3-1.2); BLOOD UREA NITROGEN < 5 MG/DL (9-23); CARBON DIOXIDE LEVEL 31 MMOL/L (20-31); CHLORIDE LEVEL 108 MMOL/L (98-107); CREATININE FOR GFR 0.55 MG/DL (0.55-1.30); GLOMERULAR FILTRATION RATE > 60.0 (>39); GLUCOSE, FASTING 152 MG/DL (74-106); MAGNESIUM LEVEL 1.4 MG/DL (1.8-2.4); POTASSIUM SERUM 4.2 MMOL/L (3.5-5.1); SODIUM LEVEL 143 MMOL/L (136-145); TOTAL PROTEIN 4.3 G/DL (5.7-8.2)
[2023-08-13] MEDS: MAG SULF 1GM/100ML (MAG RUN) 1 GM in IV 1 EA IV SCH (00:04)
[2023-08-13 06:00] VITALS: BP 151/65; TEMP 97.2; O2SAT 96
[2023-08-13 06:14] LABS: WHITE BLOOD COUNT 7.8 10^3/uL (4.0-10.0)
[2023-08-13 06:15] LABS: HEMATOCRIT 29.2 % (36.0-47.0); HEMOGLOBIN 9.6 g/dl (12.0-15.5); RED BLOOD COUNT 3.03 10^6/uL (4.00-5.40)
[2023-08-13 06:16] LABS: BASO % 0.3 % (0.0-1.0); LYMPH # 1.1 10^3/uL (1.5-5.0); LYMPH % 14.4 % (24.0-44.0); MEAN CORPUSCULAR HEMOGLOBIN 31.7 pg (27.0-33.0); MEAN CORPUSCULAR HGB CONC 32.9 g/dl (32.0-36.5); MEAN CORPUSCULAR VOLUME 96.4 fl (80.0-96.0); MONO % 12.5 % (2.0-8.0); NEUTROPHILS # 5.6 10^3/uL (1.5-8.5); NEUTROPHILS % 71.9 % (36.0-66.0); PLATELET COUNT, AUTOMATED 112 10^3/uL (150-450)
[2023-08-13 06:30] LABS: BLOOD UREA NITROGEN < 5 MG/DL (9-23); CARBON DIOXIDE LEVEL 34 MMOL/L (20-31); CHLORIDE LEVEL 106 MMOL/L (98-107); CREATININE FOR GFR 0.52 MG/DL (0.55-1.30); GLOMERULAR FILTRATION RATE > 60.0 (>39); GLUCOSE, FASTING 127 MG/DL (74-106); POTASSIUM SERUM 3.9 MMOL/L (3.5-5.1); SODIUM LEVEL 142 MMOL/L (136-145)
[2023-08-13] MEDS: LIDOCAINE 5% (LIDODERM) PATCH TD ONE (12:46)
[2023-08-13] MEDS: KETOROLAC 30 MG/ML 1ML VIAL IV PRN (13:01)
[2023-08-13 14:00] VITALS: BP 108/63; TEMP 97.3; O2SAT 97
[2023-08-13 20:00] VITALS: BP 111/60; TEMP 97.3; O2SAT 96
[2023-08-14 06:00] VITALS: BP 125/60; TEMP 97.2; O2SAT 98
[2023-08-14 06:28] LABS: BASO % 0.4 % (0.0-1.0); HEMATOCRIT 28.7 % (36.0-47.0); HEMOGLOBIN 9.3 g/dl (12.0-15.5); LYMPH # 1.2 10^3/uL (1.5-5.0); LYMPH % 25.2 % (24.0-44.0); MEAN CORPUSCULAR HEMOGLOBIN 31.5 pg (27.0-33.0); MEAN CORPUSCULAR HGB CONC 32.4 g/dl (32.0-36.5); MEAN CORPUSCULAR VOLUME 97.3 fl (80.0-96.0); MONO # 0.6 10^3/uL (0.0-0.8); MONO % 13.1 % (2.0-8.0); NEUTROPHILS # 2.9 10^3/uL (1.5-8.5); NEUTROPHILS % 59.4 % (36.0-66.0); PLATELET COUNT, AUTOMATED 118 10^3/uL (150-450); RED BLOOD COUNT 2.95 10^6/uL (4.00-5.40); WHITE BLOOD COUNT 4.8 10^3/uL (4.0-10.0)
[2023-08-14 06:50] LABS: BLOOD UREA NITROGEN < 5 MG/DL (9-23); CALCIUM LEVEL 8.3 MG/DL (8.3-10.6); CARBON DIOXIDE LEVEL 35 MMOL/L (20-31); CHLORIDE LEVEL 105 MMOL/L (98-107); CREATININE FOR GFR 0.52 MG/DL (0.55-1.30); GLOMERULAR FILTRATION RATE > 60.0 (>39); GLUCOSE, FASTING 94 MG/DL (74-106); POTASSIUM SERUM 5.2 MMOL/L (3.5-5.1); SODIUM LEVEL 143 MMOL/L (136-145)
[2023-08-14] MEDS: D5W/0.45% SODIUM CHLORIDE 1,000 ML IV SCH (08:12)
[2023-08-14] MEDS: PATIROMER SORBITEX CALCIUM 8.4 GM POWDER PACKET (VELTASSA) PO ONE (09:44)
[2023-08-14 14:00] VITALS: BP 110/62; TEMP 98.1; O2SAT 98
[2023-08-14 20:20] VITALS: BP 111/60; TEMP 97.5; O2SAT 99
[2023-08-14] MEDS: VALPROIC ACID 250MG CAP PO SCH (20:36)
[2023-08-14] MEDS: ATORVASTATIN 20 MG TAB PO SCH (20:36)
[2023-08-14] MEDS: DULoxetine 30MG CAPSULE (CYMBALTA) PO SCH (20:37)
[2023-08-14] MEDS: HEPARIN SOD (PORCINE) 5000UNITS/ML 1ML VIAL/SYRINGE SQ SCH (20:37)
[2023-08-15] MEDS: ERTAPENEM SODIUM 1 GM in NS MINI-BAG PLUS 50 ML IV SCH (00:35)
[2023-08-15 05:48] VITALS: BP 148/64; TEMP 97.7; O2SAT 96
[2023-08-15 07:15] LABS: BASO % 0.4 % (0.0-1.0); HEMATOCRIT 26.5 % (36.0-47.0); HEMOGLOBIN 8.8 g/dl (12.0-15.5); LYMPH # 1.1 10^3/uL (1.5-5.0); LYMPH % 20.9 % (24.0-44.0); MEAN CORPUSCULAR HEMOGLOBIN 31.3 pg (27.0-33.0); MEAN CORPUSCULAR HGB CONC 33.2 g/dl (32.0-36.5); MEAN CORPUSCULAR VOLUME 94.3 fl (80.0-96.0); MONO # 0.7 10^3/uL (0.0-0.8); MONO % 12.5 % (2.0-8.0); NEUTROPHILS # 3.5 10^3/uL (1.5-8.5); NEUTROPHILS % 65.3 % (36.0-66.0); PLATELET COUNT, AUTOMATED 159 10^3/uL (150-450); RED BLOOD COUNT 2.81 10^6/uL (4.00-5.40); WHITE BLOOD COUNT 5.3 10^3/uL (4.0-10.0)
[2023-08-15 07:37] LABS: BLOOD UREA NITROGEN < 5 MG/DL (9-23); CALCIUM LEVEL 8.1 MG/DL (8.3-10.6); CARBON DIOXIDE LEVEL 34 MMOL/L (20-31); CHLORIDE LEVEL 104 MMOL/L (98-107); CREATININE FOR GFR 0.55 MG/DL (0.55-1.30); GLOMERULAR FILTRATION RATE > 60.0 (>39); GLUCOSE, FASTING 100 MG/DL (74-106); POTASSIUM SERUM 4.1 MMOL/L (3.5-5.1); SODIUM LEVEL 141 MMOL/L (136-145)
[2023-08-15] MEDS: PANTOPRAZOLE 40MG TAB (PROTONIX) PO SCH (09:03)
[2023-08-15] MEDS ORDERED: LIDOCAINE 1% MDV 20ML VIAL As Ordered ONE (11:56)
[2023-08-15] MEDS ORDERED: SODIUM CHLORIDE 0.9% INJ 10 ML SYR IV PRN (13:35)
[2023-08-15 13:39] VITALS: BP 137/74; TEMP 97.3; O2SAT 99
[2023-08-15] MEDS: MIRALAX *UNIT DOSE* 17GM PACKET PO SCH (14:56)
[2023-08-15] MEDS: METOPROLOL SUCC *XL* 25MG TAB (TopROL *XL*) PO SCH (14:57)
[2023-08-15] MEDS: SODIUM CHLORIDE 0.9% INJ 10 ML SYR IV SCH (14:58)
[2023-08-15 20:12] VITALS: BP 136/71; TEMP 97.7; O2SAT 96
[2023-08-15] MEDS: METAMUCIL (PSYLLIUM) PACKET PO SCH (21:27)
[2023-08-15] MEDS: APIXABAN 5 MG TAB (ELIQUIS) PO SCH (21:30)
[2023-08-16 05:48] VITALS: BP 129/53; TEMP 97.2; O2SAT 97
[2023-08-16 08:01] LABS: HEMATOCRIT 29.9 % (36.0-47.0); HEMOGLOBIN 9.4 g/dl (12.0-15.5); MEAN CORPUSCULAR HGB CONC 31.4 g/dl (32.0-36.5); MEAN CORPUSCULAR VOLUME 98.7 fl (80.0-96.0); PLATELET COUNT, AUTOMATED 202 10^3/uL (150-450); RED BLOOD COUNT 3.03 10^6/uL (4.00-5.40); WHITE BLOOD COUNT 4.6 10^3/uL (4.0-10.0)
[2023-08-16] MEDS: ASPIRIN 81MG CHEW TABLET PO SCH (08:11)
[2023-08-16 08:20] LABS: BLOOD UREA NITROGEN 6 MG/DL (9-23); CALCIUM LEVEL 8.6 MG/DL (8.3-10.6); CARBON DIOXIDE LEVEL 32 MMOL/L (20-31); CHLORIDE LEVEL 105 MMOL/L (98-107); CREATININE FOR GFR 0.53 MG/DL (0.55-1.30); GLOMERULAR FILTRATION RATE > 60.0 (>39); GLUCOSE, FASTING 79 MG/DL (74-106); POTASSIUM SERUM 4.3 MMOL/L (3.5-5.1); SODIUM LEVEL 141 MMOL/L (136-145)
[2023-08-16 08:28] LABS: PROCALCITONIN 0.06 ng/ml
[2023-08-16] MEDS: DAPAGLIFLOZIN PROPANEDIOL 10MG TABLET (FARXIGA) PO SCH (09:11)
[2023-08-16] MEDS: SPIRONOLACTONE 25 MG TAB PO SCH (09:11)
[2023-08-16 14:00] VITALS: BP 122/57; TEMP 97.5; O2SAT 97
[2023-08-16 20:12] VITALS: BP 115/53; TEMP 97.5; O2SAT 95
[2023-08-17 05:59] VITALS: BP 123/52; TEMP 97.5; O2SAT 96
[2023-08-17] MEDS ORDERED: ERTA1INJ3 IJ (07:56)
[2023-08-17] MEDS ORDERED: METO1TAB32 PO (07:56)
[2023-08-17] MEDS ORDERED: FIRV50SO PO (07:56)
[2023-08-17] MEDS ORDERED: FARX1TAB3 PO (07:56)
[2023-08-17] MEDS ORDERED: ALDA25TA2 PO (07:56)
[2023-08-17] MEDS ORDERED: LISI10TA22 PO (07:56)
[2023-08-17 09:26] VITALS: BP 121/56
== END 2023-08-17 11:13 | DRG 698 ==
LOC: M MSPAV 19:57 → EEVIPCON 19:57
PROVIDERS: ADMIT Internal Medicine; ATTEND Student in an Organized Health Care Education/Training Program
PROC: 009U3ZX Drainage of Spinal Canal, Percutaneous Approach, Diagnostic (ICD-10-PCS; principal; 2023-08-10 08:15)
PROC: 02HV33Z Insertion of Infusion Device into Superior Vena Cava, Percutaneous Approach (ICD-10-PCS; 2023-08-16)
DX: T83.511A Infection and inflammatory reaction due to indwelling urethral catheter, initial encounter (principal); A41.51 Sepsis due to Escherichia coli [E. coli]; R65.20 Severe sepsis without septic shock; G93.41 Metabolic encephalopathy; I42.9 Cardiomyopathy, unspecified; E87.20 Acidosis, unspecified; I50.22 Chronic systolic (congestive) heart failure; E87.0 Hyperosmolality and hypernatremia; I48.0 Paroxysmal atrial fibrillation; N39.0 Urinary tract infection, site not specified; G40.909 Epilepsy, unspecified, not intractable, without status epilepticus; D63.8 Anemia in other chronic diseases classified elsewhere; D69.6 Thrombocytopenia, unspecified; E87.5 Hyperkalemia; I27.20 Pulmonary hypertension, unspecified; E55.9 Vitamin D deficiency, unspecified; R33.9 Retention of urine, unspecified; R13.10 Dysphagia, unspecified; F32.A Depression, unspecified; G43.909 Migraine, unspecified, not intractable, without status migrainosus; Z88.0 Allergy status to penicillin; Z79.899 Other long term (current) drug therapy; Z79.82 Long term (current) use of aspirin; F10.20 Alcohol dependence, uncomplicated; E11.9 Type 2 diabetes mellitus without complications; E03.9 Hypothyroidism, unspecified; R29.6 Repeated falls; G47.00 Insomnia, unspecified; Y84.6 Urinary catheterization as the cause of abnormal reaction of the patient, or of later complication, without mention of misadventure at the time of the procedure